=== PATIENT | male | born 1950 | race Hispanic/Latino ===

== ENCOUNTER 2018-01-22 09:30 | Inpatient (IN) | payer OTHER, MEDICARE ==
[2018-01-22 09:42] VITALS: BMI 31.9
[2018-01-22 10:37] LABS: BASO # 0.1 K/uL (0.0-0.2); BASO % 0.4 % (0.0-2.0); EOS # 0.1 K/uL (0.0-0.7); EOS % 0.4 % (0.0-4.0); HEMOGLOBIN 10.9 g/dL (12.0-18.0); LYMPH # 1.2 K/uL (1.0-4.3); LYMPH % 6.9 % (20.0-40.0); MEAN CELL VOLUME 94.6 fl (80.0-94.0); MEAN CORPUSCULAR HEMOGLOBIN 32.6 pg (27.0-31.0); MEAN CORPUSCULAR HGB CONC 34.5 g/dL (33.0-37.0); MEAN PLATELET VOLUME 7.1 fl (7.2-11.7); MONO # 1.4 K/uL (0.0-0.8); MONO % 7.9 % (0.0-10.0); NEUT % 84.4 % (50.0-75.0); NRBC % 0.1 % (0.0-0.0); PLATELET COUNT 423 K/uL (130-400); RBC 3.35 Mil/uL (4.40-5.90); RED CELL DISTRIBUTION WIDTH 14.4 % (11.5-14.5); WHITE BLOOD COUNT 17.8 K/uL (4.8-10.8)
[2018-01-22 10:44] LABS: INR 1.5 (0.9-1.2); PROTHROMBIN TIME 16.3 Seconds (9.8-13.1)
[2018-01-22 10:50] LABS: ALB/GLOB RATIO 0.6 (1.0-2.1); ALBUMIN 3.2 g/dL (3.5-5.0); ALT/SGPT 36 U/L (21-72); AST/SGOT 63 U/L (17-59); BLOOD UREA NITROGEN 28 mg/dl (9-20); CALCIUM 8.6 mg/dL (8.4-10.2); GFR AFRICAN-AMERICAN > 60; GFR NON-AFRICAN AMERICAN > 60; LIPASE 107 U/L (23-300)
[2018-01-22 10:58] LABS: B-TYPE NATRIURETIC PEPTIDE 200 pg/ml (0-900)
--- NOTE | 2018-01-22 10:58 | RAD ---
HISTORY: SOB, weight loss, past smoker COMPARISON: No prior. TECHNIQUE: Chest PA and lateral FINDINGS: LUNGS: 1.1 cm nodular density in the peripheral left lower lung. No active pulmonary disease. PLEURA: No significant pleural effusion identified. No pneumothorax apparent. CARDIOVASCULAR: Atherosclerotic aortic calcifications. Nonspecific hilar prominence. OSSEOUS STRUCTURES: Old bilateral rib fractures. Degenerative changes. VISUALIZED UPPER ABDOMEN: Normal. OTHER FINDINGS: None. IMPRESSION: No active disease. 1.1 cm nodular density in the peripheral left lower lung. CT scan can be obtained for further evaluation as clinically warranted. Nonspecific hilar prominence.
[2018-01-22] MEDS ORDERED: Iohexol 300 100 ML IJ ONE (11:27)
[2018-01-22 11:28] LABS: URINE BACTERIA RARE (<OCC); URINE BILIRUBIN NEGATIVE (NEGATIVE); URINE BLOOD NEGATIVE (NEGATIVE); URINE CLARITY SLIGHTY-CLOUDY (Clear); URINE COLOR YELLOW (YELLOW); URINE GLUCOSE (UA) NEG (Normal); URINE LEUKOCYTE ESTERASE NEG Leu/uL (Negative); URINE PROTEIN NEGATIVE (NEGATIVE)
[2018-01-22 12:07] LABS: EOSINOPHIL 1 % (0-7); LYMPHOCYTE 8 % (20-50); MONOCYTE 6 % (0-10); NEUTROPHIL 85 % (42-75); TOTAL CELLS COUNTED 100
[2018-01-22 12:08] LABS: ANISOCYTOSIS SLIGHT; HYPOCHROMIC SLIGHT; LARGE PLATELETS PRESENT; PLATELET ESTIMATE SLIGHTLY INCREASED (NORMAL); TOXIC GRANULATION PRESENT
--- NOTE | 2018-01-22 12:48 | CT ---
PROCEDURE: CT Chest, Abdomen and Pelvis with intravenous contrast HISTORY: abnormal CXR, elev LFTs COMPARISON: None. TECHNIQUE: IV dose administered: 95 cc Omnipaque 3 Radiation dose: Total exam DLP = 1038.02 mGy-cm. This CT exam was performed using one or more of the following dose reduction techniques: Automated exposure control, adjustment of the mA and/or kV according to patient size, and/or use of iterative reconstruction technique. FINDINGS: CT CHEST WITH CONTRAST: LUNGS: Left apical mass or scarring. Circumferential narrowing of the distal left mainstem bronchus in the bronchus to the left upper lobe. Postobstructive pneumonitis primarily affecting the left upper lobe including lingula. MEDIASTINUM: Unremarkable. Normal caliber aorta and pulmonary arterial trunk. No aortic dissection. Normal size heart. LYMPH NODES: Necrotic mass left lung inseparable from adjacent mediastinal and hilar adenopathy. The mass circumferentially narrows the left main pulmonary artery. Necrotic masses in the anterior and superior mediastinal identified. There is also a hilar CHRISTI, peritracheal and subcarinal adenopathy. The subcarinal mass measures 3.3 x 4.5 cm. Enlarged and necrotic lymph nodes are seen in the left axilla the largest measures 2 cm. PLEURA: Unremarkable. No pneumothorax. No pleural fluid. BONES: Lytic disease affecting the sternum. Additional lytic disease affecting the posterior lateral right 4th rib. Mixed sclerotic and lytic disease thoracic spine. OTHER FINDINGS: None. CT ABDOMEN AND PELVIS: LIVER: Hepatomegaly. Orthogonal measurements 9.0 x 17.2 by a 23 cm. No focal hepatic masses identified. Patent portal venous system. GALLBLADDER AND BILE DUCTS: Unremarkable. PANCREAS: Unremarkable. No gross lesion or ductal dilatation. SPLEEN: Splenomegaly. Orthogonal measurements 6.1 x 14.2 x 13.3 cm. Multiple masses within the spleen suspicious for tumor invasion. ADRENALS: Unremarkable. No mass. KIDNEYS AND URETERS: Right kidney: Unremarkable. Left kidney: Cystic mass exophytic projecting off the midpole region of the left kidney measures 2 x 5.2 cm. It is difficult to determine whether this is a complex cyst adjacent to a solid mass or at overall confluent cystic and solid tumor. VASCULATURE: Unremarkable. No aortic aneurysm. BOWEL: Unremarkable. No obstruction. No gross mural thickening. APPENDIX: Normal appendix. PERITONEUM: Unremarkable. No free fluid. No free air. LYMPH NODES: Fernanda hepatis, right upper quadrant adenopathy is suspected in the vicinity of the celiac axis, main portal vein and duodenum. BLADDER: Unremarkable. REPRODUCTIVE: Unremarkable. BONES: Lytic disease left pubic bone, posterior rim of the right acetabulum. Additional lytic lesions identified in the super acetabular region left iliac bone. OTHER FINDINGS: Necrotic soft tissue mass adjacent to the gluteal muscles on the left measuring 4 cm IMPRESSION: 1. Tumor burden in the chest abdomen pelvis described in greater detail above. 2. This includes massive adenopathy in the thorax. Tumor likely originating from the left upper lobe encasing the pulmonary artery and bronchus with postobstructive pneumonitis. 3. Soft tissue masses anterior abdominal wall and adjacent to the left gluteal muscles. 4. Splenomegaly and cystic presumed metastatic lesions in the spleen. 5. Primarily lytic disease in ribs and pelvis. 6. Complex solid and cystic mass in the left kidney. Renal cell carcinoma may be concomitant findings COMMUNICATION OF RESULTS Findings discussed with attending physician in the emergency department at the time of this interpretation. Study completed 12:00. Verbal results provided 12:41. Results available in the electronic medical record 12:46.
[2018-01-22] MEDS ORDERED: Piperacillin/Tazobact 4.5 GM in Sodium Chloride 0.9% 100 ML IVPB STA (12:59)
--- NOTE | 2018-01-22 13:38 | ED PDOC ---
HPI: SOB/CHF/COPD Time Seen by Provider: 01/22/18 09:45 Chief Complaint (Nursing): Shortness Of Breath Chief Complaint (Provider): shortness of breath History Per: Patient, Family History/Exam Limitations: no limitations Onset/Duration Of Symptoms: Gradual (x weeks) Current Symptoms Are (Timing): Still Present Initiating Event: Upper Respiratory Illness Quality: Aching, Tightness Severity: Moderate Associated Symptoms: Dizziness, Other (weight loss) Recently: Treated By A Physician Additional Complaint(s): 67yo male c/o progressive shortness of breath associated with left chest aching pain, weight loss, skin color change and generalized weakness ongoing for 2-3 weeks. States finished 2 rounds oral antibiotics without relief. Had PFTs done at PMD office, and recent ultrasound of prostate for elevated PSA. Denies hemoptyis, syncope, headache or focal weakness. Past Medical History Reviewed: Historical Data, Nursing Documentation, Vital Signs Vital Signs: Last Vital Signs Temp 97.9 F 01/26/18 11:48 Pulse 78 01/26/18 11:48 Resp 18 01/26/18 11:48 BP 163/91 H 01/26/18 11:48 Pulse Ox 97 01/26/18 11:48 - Medical History PMH: Pneumonia - Surgical History Surgical History: No Surg Hx - Family History Family History: States: Unknown Family Hx - Living Arrangements Living Arrangements: With Family - Social History Current smoker - smoking cessation education provided: Yes Ex-Smoker (has not smoked in the last 12 months): No (quit 10wks ago) - Immunization History Hx Tetanus Toxoid Vaccination: (UTD as of last year) - Home Medications Home Medications: Ambulatory Orders Medication Instructions Recorded Naproxen [Naprosyn] 500 mg PO BID 01/24/18 Tamsulosin [Flomax] 0.4 mg PO DAILY 01/24/18 tiZANidine [Zanaflex] 4 mg PO BID 01/24/18 Amoxicillin/Clavulanate [Augmentin 1 tab PO BID #14 tab 01/26/18 875 MG-125 MG] Dexamethasone [Decadron] 4 mg PO BID #60 tab 01/26/18 levETIRAcetam [Keppra] 500 mg PO BID #60 tab 01/26/18 - Allergies Allergies/Adverse Reactions: Allergies Allergy/AdvReac Type Severity Reaction Status Date / Time No Known Allergies Allergy Verified 07/26/14 19:39 Review of Systems Constitutional: Positive for: Weakness, Malaise, Weight loss Eyes: Negative for: Vision Change ENT: Negative for: Throat Pain Cardiovascular: Positive for: Light Headedness. Negative for: Palpitations, Edema Respiratory: Positive for: Cough, Shortness of Breath, SOB with Exertion, Pleuritic Pain. Negative for: Hemoptysis, Sputum Gastrointestinal: Negative for: Abdominal Pain Genitourinary Male: Negative for: Dysuria Musculoskeletal: Negative for: Neck Pain, Back Pain Skin: Negative for: Rash, Lesions, Jaundice Neurological: Positive for: Weakness (generalized). Negative for: Numbness, Seizures Physical Exam - Reviewed Nursing Documentation Reviewed: Yes Vital Signs Reviewed: Yes - Physical Exam Appears: Positive for: Non-toxic, No Acute Distress Head Exam: Positive for: ATRAUMATIC, NORMAL INSPECTION, NORMOCEPHALIC Skin: Positive for: Normal Color, Warm, DRY Eye Exam: Positive for: EOMI, Normal appearance, PERRL ENT: Positive for: Normal ENT Inspection Neck: Positive for: Normal, Painless ROM Cardiovascular/Chest: Positive for: Regular Rate, Rhythm Respiratory: Positive for: Normal Breath Sounds. Negative for: Rhonchi, Respiratory Distress Gastrointestinal/Abdominal: Positive for: Normal Exam, Soft. Negative for: Tenderness Back: Positive for: Normal Inspection Extremity: Positive for: Normal ROM Neurologic/Psych: Positive for: Alert, Oriented. Negative for: Motor/Sensory Deficits - Laboratory Results Result Diagrams: 01/25/18 09:30 01/25/18 09:30 - ECG ECG: Positive for: Interpreted By Al ECG Rhythm: Positive for: Sinus Rhythm Rate: 64 O2 Sat by Pulse Oximetry: 99 Pulse Ox Interpretation: Normal - Radiology X-Ray: Read By Radiologist X-Ray Interpretation: Other (hilar prominence and LLL lesion, rec CT chest) Medical Decision Making Medical Decision Making: workup for progressive SOB, weight loss, malaise. labs/cxr ordered labs reveal anemia w leukocytosis elev INR and elev Alk Phos CXR abnormal, given clinical picture concern for malignancy CT C/A/P ordered and results d/w Dr Crane, concerning for massive cancer burden in chest w mets blood cultures drawn prior to vanco/zosyn initiated for post obstructive pneumonia given elev WBC and immunocompromised state of malignancy D/w Dr Dash onc- no urgent indication for transfer, patient can remain at [facility] for biopsy and likely chemo, no indication for urgent radiation. Patient and given results and CT and bloodwork discussed in detail. Disposition - Clinical Impression Clinical Impression: Lung cancer, Pneumonia - Patient ED Disposition Is Patient to be Admitted: Yes Counseled Patient/Family Regarding: Studies Performed, Diagnosis, Need For Followup - Disposition Disposition Time: 12:30 (') Condition: GUARDED - Pt Status Changed To: Hospital Disposition Of: Inpatient - Admit Certification Admit to Inpatient:: After my assessment, the patient will require hospitalization for at least two midnights. This is because of the severity of symptoms shown, intensity of services needed, and/or the medical risk in this patient being treated as an outpatient. - POA Present On Arrival: None
[2018-01-22 13:55] LABS: VENOUS BLOOD GAS BASE EXCESS 2.6 mmol/L (0.0-2.0); VENOUS BLOOD GAS PCO2 36 mmHg (40-60); VENOUS BLOOD GAS PO2 59 mm/Hg (30-55); VENOUS BLOOD PH 7.47 (7.32-7.43)
[2018-01-22] MEDS: Naproxen 500 MG TAB PO PRN (16:26)
[2018-01-22] MEDS ORDERED: Sodium Chloride 3% for Inhalation 4 ML VIAL.NEB IH PRN (17:07)
[2018-01-22] MEDS ORDERED: Sodium Chloride 0.9% 1,000 ML IV SCH (18:00)
[2018-01-22] MEDS: Oxycodone/Acetaminophen 5/325 mg Tab PO PRN (18:13)
--- NOTE | 2018-01-22 18:42 | CARD ---
APPROVED REPORT EKG Measurement Heart [id number] <Conclusion> Normal sinus rhythm Normal ECG
[2018-01-22] MEDS: Albuterol-Ipratrop 3 mg / 0.5 (3 ml) UD INH SCH (19:23)
[2018-01-22] MEDS ORDERED: Oxycodone/Acetaminophen 5/325 mg Tab PO ONE (21:21)
[2018-01-23] MEDS: Oxycodone/Acetaminophen 5/325 mg Tab PO PRN ×2 (02:47→18:19)
[2018-01-23] MEDS: Piperacillin/Tazobact 3.375 GM in Sodium Chloride 0.9% 100 ML IVPB SCH ×5 (02:49→21:49)
[2018-01-23] MEDS: Sodium Chloride 0.9% 1,000 ML IV SCH ×2 (02:52→11:30)
[2018-01-23 06:19] LABS: BASO # 0.2 K/uL (0.0-0.2); BASO % 1.2 % (0.0-2.0); EOS # 0.3 K/uL (0.0-0.7); EOS % 2.2 % (0.0-4.0); HEMOGLOBIN 10.9 g/dL (12.0-18.0); LYMPH # 1.1 K/uL (1.0-4.3); MEAN CELL VOLUME 99.5 fl (80.0-94.0); MEAN CORPUSCULAR HEMOGLOBIN 35.3 pg (27.0-31.0); MEAN CORPUSCULAR HGB CONC 35.5 g/dL (33.0-37.0); MEAN PLATELET VOLUME 7.1 fl (7.2-11.7); MONO # 1.4 K/uL (0.0-0.8); MONO % 9.9 % (0.0-10.0); NEUT # 11.2 K/uL (1.8-7.0); NEUT % 78.7 % (50.0-75.0); RBC 3.09 Mil/uL (4.40-5.90); RED CELL DISTRIBUTION WIDTH 14.1 % (11.5-14.5); WHITE BLOOD COUNT 14.2 K/uL (4.8-10.8)
[2018-01-23 06:35] LABS: ALB/GLOB RATIO 0.5 (1.0-2.1); ALBUMIN 2.9 g/dL (3.5-5.0); ALT/SGPT 34 U/L (21-72); AST/SGOT 50 U/L (17-59); BLOOD UREA NITROGEN 18 mg/dl (9-20); CALCIUM 8.3 mg/dL (8.4-10.2); GFR AFRICAN-AMERICAN > 60; GFR NON-AFRICAN AMERICAN > 60
[2018-01-23] MEDS: Albuterol-Ipratrop 3 mg / 0.5 (3 ml) UD INH SCH ×4 (07:13→19:43)
--- NOTE | 2018-01-23 08:23 | RAD ---
PROCEDURE: Radiographs of the left elbow. HISTORY: Pain COMPARISON: No prior. FINDINGS: BONES: Possible coronoid process fracture. JOINTS: Unremarkable. SOFT TISSUES: Normal. JOINT EFFUSION: Elevation of the anterior fat pad. OTHER FINDINGS: None IMPRESSION: Elevation of the anterior fat pad consistent with fracture, possibly of the coronoid process. Patient admitted.
[2018-01-23] MEDS ORDERED: Gadodiamide 287 MG/ML VIAL (15ML) IV ONE (08:46)
--- NOTE | 2018-01-23 09:54 | CP.PCM.HP ---
History of Present Illness - History of Present Illness History of Present Illness: pt admitted for sob after being tx outpt for bronchitis/pna. no f/c, n/v/d. 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 bw and imaging noted. imaging w/ mass in lung, left kidney, abd wall, spleen. lytic lesion to left elbow, rib, pelvic. case d/c w/ radiology, pulm, heme/onc, neuro pt is pending bx for confirmation of dx thursday. Present on Admission - Present on Admission Any Indicators Present on Admission: No Review of Systems - Respiratory Respiratory: As Per HPI, Cough, Dyspnea - Musculoskeletal Musculoskeletal: As Per HPI, Arthralgias Past Patient History - Past Social History Smoking Status: Heavy Smoker > 10 Cigarettes Daily - CARDIAC Hx Cardiac Disorders: No - PULMONARY Hx Respiratory Disorders: Yes - NEUROLOGICAL Hx Neurological Disorder: No - HEENT Hx HEENT Problems: No - RENAL Hx Chronic Kidney Disease: No - ENDOCRINE/METABOLIC Hx Endocrine Disorders: No - HEMATOLOGICAL/ONCOLOGICAL Hx Blood Disorders: No - INTEGUMENTARY Hx Dermatological Problems: No - MUSCULOSKELETAL/RHEUMATOLOGICAL Hx Musculoskeletal Disorders: No Hx Falls: No - GENITOURINARY/GYNECOLOGICAL Hx Genitourinary Disorders: No - PSYCHIATRIC Hx Psychophysiologic Disorder: No Hx Substance Use: No - SURGICAL HISTORY Hx Surgeries: Yes Other/Comment: Polyps removed from throat. - ANESTHESIA Hx Anesthesia: Yes Hx Anesthesia Reactions: No Hx Malignant Hyperthermia: No Meds Allergies/Adverse Reactions: Allergies Allergy/AdvReac Type Severity Reaction Status Date / Time No Known Allergies Allergy Verified 07/26/14 19:39 Physical Exam - Constitutional Appears: Well, Non-toxic, No Acute Distress - Head Exam Head Exam: ATRAUMATIC, NORMAL INSPECTION, NORMOCEPHALIC - Eye Exam Eye Exam: EOMI, Normal appearance, PERRL Pupil Exam: NORMAL ACCOMODATION, PERRL - ENT Exam ENT Exam: Mucous Membranes Moist, Normal Exam - Neck Exam Neck exam: Positive for: Normal Inspection - Respiratory Exam Respiratory Exam: Clear to Auscultation Bilateral, NORMAL BREATHING PATTERN - Cardiovascular Exam Cardiovascular Exam: REGULAR RHYTHM, RRR, +S1, +S2 - GI/Abdominal Exam GI & Abdominal Exam: Normal Bowel Sounds, Soft. absent: Tenderness - Extremities Exam Extremities exam: Positive for: normal inspection - Back Exam Back exam: NORMAL INSPECTION - Neurological Exam Neurological exam: Alert, CN II-XII Intact, Normal Gait, Oriented x3, Reflexes Normal - Psychiatric Exam Psychiatric exam: Normal Affect, Normal Mood - Skin Skin Exam: Dry, Intact, Normal Color, Warm Results - Vital Signs Recent Vital Signs: Last Vital Signs Temp 97.7 F 01/23/18 08:10 Pulse 85 01/23/18 08:10 Resp 18 01/23/18 08:10 BP 138/79 01/23/18 08:10 Pulse Ox 97 01/23/18 08:10 - Labs Result Diagrams: 01/23/18 06:00 01/23/18 06:00 Labs: Laboratory Results - last 24 hr 01/22/18 01/22/18 01/22/18 10:23 10:23 10:23 WBC 17.8 H RBC 3.35 L Hgb 10.9 L Hct 31.7 L MCV 94.6 H MCH 32.6 H MCHC 34.5 RDW 14.4 Plt Count 423 H MPV 7.1 L Neut % (Auto) 84.4 H Lymph % (Auto) 6.9 L [place] % (Auto) 7.9 Eos % (Auto) 0.4 Baso % (Auto) 0.4 Neut # (Auto) 15.0 H Lymph # (Auto) 1.2 [place] # (Auto) 1.4 H Eos # (Auto) 0.1 Baso # (Auto) 0.1 Neutrophils % (Manual) 85 H Lymphocytes % (Manual) 8 L Monocytes % (Manual) 6 Eosinophils % (Manual) 1 Toxic Granulation Present Platelet Estimate Slightly increased H Large Platelets Present Hypochromasia (manual) Slight Anisocytosis (manual) Slight PT 16.3 H INR 1.5 H APTT 31.0 pO2 VBG pH VBG pCO2 VBG HCO3 VBG Total CO2 VBG O2 Sat (Calc) VBG Base Excess VBG Potassium Glucose Lactate FiO2 Sodium 129 L Potassium 3.9 Chloride 93 L Carbon Dioxide 26 Anion Gap 14 BUN 28 H Creatinine 1.1 Est GFR ( Amer) > 60 Est GFR (Non-Af Amer) > 60 Random Glucose 140 H Calcium 8.6 Total Bilirubin 1.4 H AST 63 H ALT 36 Alkaline Phosphatase 216 H NT-Pro-B Natriuret Pep 200 Total Protein 8.8 H Albumin 3.2 L Globulin 5.6 H Albumin/Globulin Ratio 0.6 L Lipase 107 Venous Blood Potassium Urine Color Urine Clarity Urine pH Ur Specific Larue Urine Protein Urine Glucose (UA) Urine Ketones Urine Blood Urine Nitrate Urine Bilirubin Urine Urobilinogen Ur Leukocyte Esterase Urine RBC (Auto) Urine Microscopic WBC Urine Bacteria Blood Type Antibody Screen BBK History Checked 01/22/18 01/22/18 01/22/18 10:23 11:00 13:23 WBC RBC Hgb Hct MCV MCH MCHC RDW Plt Count MPV Neut % (Auto) Lymph % (Auto) [place] % (Auto) Eos % (Auto) Baso % (Auto) Neut # (Auto) Lymph # (Auto) [place] # (Auto) Eos # (Auto) Baso # (Auto) Neutrophils % (Manual) Lymphocytes % (Manual) Monocytes % (Manual) Eosinophils % (Manual) Toxic Granulation Platelet Estimate Large Platelets Hypochromasia (manual) Anisocytosis (manual) PT INR APTT pO2 59 H VBG pH 7.47 H VBG pCO2 36 L VBG HCO3 26.8 VBG Total CO2 27.3 VBG O2 Sat (Calc) 95.8 H VBG Base Excess 2.6 H VBG Potassium 4.1 Glucose 115 H Lactate 1.2 FiO2 21.0 Sodium 127.0 L Potassium Chloride 95.0 L Carbon Dioxide Anion Gap BUN Creatinine Est GFR ( Amer) Est GFR (Non-Af Amer) Random Glucose Calcium Total Bilirubin AST ALT Alkaline Phosphatase NT-Pro-B Natriuret Pep Total Protein Albumin Globulin Albumin/Globulin Ratio Lipase Venous Blood Potassium 4.1 Urine Color Yellow Urine Clarity Slighty-cloudy Urine pH 5.0 Ur Specific Larue 1.016 Urine Protein Negative Urine Glucose (UA) Neg Urine Ketones Negative Urine Blood Negative Urine Nitrate Negative Urine Bilirubin Negative Urine Urobilinogen 4.0 Ur Leukocyte Esterase Neg Urine RBC (Auto) 1 Urine Microscopic WBC 1 Urine Bacteria Rare Blood Type O POSITIVE Antibody Screen Negative BBK History Checked No verified bt 01/23/18 01/23/18 06:00 06:00 WBC 14.2 H RBC 3.09 L Hgb 10.9 L Hct 30.8 L MCV 99.5 H D MCH 35.3 H MCHC 35.5 RDW 14.1 Plt Count 414 H MPV 7.1 L Neut % (Auto) 78.7 H Lymph % (Auto) 8.0 L [place] % (Auto) 9.9 Eos % (Auto) 2.2 Baso % (Auto) 1.2 Neut # (Auto) 11.2 H Lymph # (Auto) 1.1 [place] # (Auto) 1.4 H Eos # (Auto) 0.3 Baso # (Auto) 0.2 Neutrophils % (Manual) Lymphocytes % (Manual) Monocytes % (Manual) Eosinophils % (Manual) Toxic Granulation Platelet Estimate Large Platelets Hypochromasia (manual) Anisocytosis (manual) PT INR APTT pO2 VBG pH VBG pCO2 VBG HCO3 VBG Total CO2 VBG O2 Sat (Calc) VBG Base Excess VBG Potassium Glucose Lactate FiO2 Sodium 136 Potassium 3.4 L Chloride 98 Carbon Dioxide 26 Anion Gap 15 BUN 18 Creatinine 0.7 L Est GFR ( Amer) > 60 Est GFR (Non-Af Amer) > 60 Random Glucose 136 H Calcium 8.3 L Total Bilirubin 1.4 H AST 50 ALT 34 Alkaline Phosphatase 201 H NT-Pro-B Natriuret Pep Total Protein 8.2 Albumin 2.9 L Globulin 5.3 H Albumin/Globulin Ratio 0.5 L Lipase Venous Blood Potassium Urine Color Urine Clarity Urine pH Ur Specific Larue Urine Protein Urine Glucose (UA) Urine Ketones Urine Blood Urine Nitrate Urine Bilirubin Urine Urobilinogen Ur Leukocyte Esterase Urine RBC (Auto) Urine Microscopic WBC Urine Bacteria Blood Type Antibody Screen BBK History Checked Assessment & Plan (1) Lung mass Assessment and Plan: liley cancer w/ bone, brain, spleen, kidney involvement bx thursday neuro, pulm, heme/onc, orhto consults pain control cyndi mccullough for "?? brain mets Status: Acute (2) DVT prophylaxis Assessment and Plan: scd and ae hose hold anticoag for bx ambulation Status: Acute (3) Pneumonia Assessment and Plan: vanco/zosyn post obstructive/cap, bacterial pulm Status: Acute Decision To Admit - Pt Status Changed To: Hospital Disposition Of: Inpatient - Admit Certification Admit to Inpatient:: After my assessment, the patient will require hospitalization for at least two midnights. This is because of the severity of symptoms shown, intensity of services needed, and/or the medical risk in this patient being treated as an outpatient. - . Bed Request Type: Telemetry Admitting Physician: Karen Castro
--- NOTE | 2018-01-23 10:17 | CP.PCM.PN ---
Subjective - Date & Time of Evaluation Date of Evaluation: 01/23/18 Time of Evaluation: 10:17 - Subjective Subjective: FEELS BETTER TODAY SOB IMPROVING WITH RX STILL COUGHING AFEBRILE Objective - Vital Signs/Intake and Output Vital Signs (last 24 hours): Temp Pulse Resp BP Pulse Ox 97.7 F 85 18 138/79 97 01/23/18 08:10 01/23/18 08:10 01/23/18 08:10 01/23/18 08:10 01/23/18 08:10 - Medications Medications: Current Medications Albuterol/Ipratropium (Duoneb 3 Mg/0.5 Mg (3 Ml) Ud) 3 ml INH RQID TESFAYE Last Admin: 01/23/18 07:13 Dose: 3 ml Vancomycin HCl 1 gm/ Sodium (Chloride) 250 mls @ 166.667 mls/hr IVPB Q12 TESFAYE PRN Reason: Protocol Last Admin: 01/22/18 21:26 Dose: 166.667 mls/hr Piperacillin Sod/Tazobactam (Sod 3.375 gm/ Sodium Chloride) 100 mls @ 100 mls/ hr IVPB Q6 TESFAYE PRN Reason: Protocol Last Admin: 01/23/18 02:49 Dose: 100 mls/hr Sodium Chloride (Sodium Chloride 0.9%) 1,000 mls @ 125 mls/hr IV .Q8H TESFAYE Stop: 01/23/18 19:10 Last Admin: 01/23/18 02:52 Dose: 125 mls/hr Naproxen (Naproxen) 500 mg PO Q12 PRN PRN Reason: Pain, moderate (4-7) Last Admin: 01/22/18 16:26 Dose: 500 mg Oxycodone/Acetaminophen (Percocet 5/325 Mg Tab) 1 tab PO Q4 PRN PRN Reason: Pain, severe (8-10) Stop: 01/25/18 18:06 Last Admin: 01/23/18 02:47 Dose: 1 tab - Labs Labs: 01/23/18 06:00 01/23/18 06:00 PT 16.3 Seconds (9.8-13.1) H 01/22/18 10:23 INR 1.5 (0.9-1.2) H 01/22/18 10:23 APTT 31.0 Seconds (25.6-37.1) 01/22/18 10:23 - Constitutional Appears: No Acute Distress, Chronically Ill - Head Exam Head Exam: ATRAUMATIC, NORMAL INSPECTION, NORMOCEPHALIC - Eye Exam Eye Exam: EOMI, Normal appearance, PERRL Pupil Exam: NORMAL ACCOMODATION, PERRL - ENT Exam ENT Exam: Mucous Membranes Moist, Normal Exam - Neck Exam Neck Exam: Full ROM, Normal Inspection. absent: Lymphadenopathy - Respiratory Exam Respiratory Exam: Decreased Breath Sounds, Rales, NORMAL BREATHING PATTERN - Cardiovascular Exam Cardiovascular Exam: REGULAR RHYTHM, +S1, +S2. absent: Murmur - GI/Abdominal Exam GI & Abdominal Exam: Soft, Normal Bowel Sounds. absent: Tenderness - Rectal Exam Rectal Exam: NORMAL INSPECTION - Extremities Exam Extremities Exam: Full ROM, Normal Capillary Refill, Normal Inspection. absent : Joint Swelling, Pedal Edema - Back Exam Back Exam: NORMAL INSPECTION - Neurological Exam Neurological Exam: Alert, Awake, CN II-XII Intact, Normal Gait, Oriented x3 - Psychiatric Exam Psychiatric exam: Normal Affect, Normal Mood - Skin Skin Exam: Dry, Intact, Normal Color, Warm Assessment and Plan - Assessment and Plan (Free Text) Assessment: SOB R/O MALIGNANCY WITH METS COPD Plan: ADD DECADRO TO RX
[2018-01-23] MEDS: Naproxen 500 MG TAB PO PRN (10:24)
[2018-01-23] MEDS ORDERED: Dexamethasone 4 MG in Sodium Chloride 0.9% 50 ML IVPB SCH (10:30)
--- NOTE | 2018-01-23 10:30 | MRI ---
PROCEDURE: MRI BRAIN WITH AND WITHOUT CONTRAST HISTORY: Malignancy staging COMPARISON: None. TECHNIQUE: Multiplanar, multisequence MR images of the brain were obtained with and without intravenous contrast enhancement. FINDINGS: 18 cc of Omniscan contrast material injected for this procedure. HEMORRHAGE: There is a tiny a hemorrhagic metastasis seen in the left cerebellum. No other acute hemorrhages are identified DWI: There are 2 small focal areas of restricted diffusion in the left cerebellar hemisphere the laterally oriented lesion consistent with a small hemorrhagic metastasis and the medially oriented lesion is felt to represent a nonhemorrhagic metastasis BRAIN PARENCHYMA: There are multiple (too numerous to count) small metastatic lesions scattered throughout the supra and infratentorial compartment one of which is located in the left cerebellum and appears to exhibit both restricted diffusion and a hemorrhagic degradation. Note that many of the very tiny early lesions which are visible on postcontrast imaging too small to be visualized on diffusion imaging. . Incidental note also made of enhancing venous angioma (developmental venous anomaly) in the left inferior cerebellum which is located below the at aforementioned hemorrhagic metastatic lesion. There also mild diffuse chronic periventricular white matter ischemic changes Mild moderate central volume loss with slight disproportionate enlargement of the ventricles compared sulci. ENHANCEMENT: As above. VENTRICLES: No obstructive hydrocephalus. CRANIUM: No definitive calvarial lesions are seen at this time however consider followup bone scan. ORBITS: Orbits and contents unremarkable. PARANASAL SINUSES/MASTOIDS: Visualized paranasal sinuses are relatively well-developed and currently well-aerated. There is partial opacification of several of right inferior mastoid air cells. VASCULAR SYSTEM: Visualized major vascular flow voids at skull base patent. OTHER FINDINGS: None . IMPRESSION: There are multiple There are multiple (too numerous to count) small metastatic lesions scattered throughout the supra and infratentorial compartments several of which are slightly larger and and exhibit a restricted diffusion seen on DWI imaging. One of the lesions in the left cerebellum also exhibits hemorrhagic degradation. Note also made of an incidental developmental venous anomaly - venous angioma left inferior cerebellar hemisphere subjacent to the at aforementioned hemorrhagic metastatic deposit. . Mild diffuse periventricular white matter ischemic changes Mild to moderate central volume loss. Note that these findings were discussed with Niall Mcfadden at 10:20 a.m. with written down and read back verification.
--- NOTE | 2018-01-23 14:50 | CP.PCM.CON ---
History of Present Illness - History of Present Illness History of Present Illness: 67 year old male with a history of former tobacco abuse admitted with shortness of breast, found to have radiographic evidence of metastatic malignancy. The patient reports to being treated with antibiotics for pneumonia by his outpatient PMD. He notes to improvement in his symptoms with antibiotics but felt very short of breath while walking the dog yesterday. He denies headaches. Imaging revealed extensive thoracic tumor burden with bone and kidney lesions. An MRI of the brain revealed diffuse brain lesions concerning for metastasis. 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 Allergies: NKA Review of systems: All remaining review of systems including HEENT, cardiovascular, respiratory, gastrointestinal, genitourinary, musculoskeletal, dermatologic, neurologic, and psychiatric are negative unless mentioned in the HPI. Past Patient History - Past Social History Smoking Status: Heavy Smoker > 10 Cigarettes Daily - CARDIAC Hx Cardiac Disorders: No - PULMONARY Hx Respiratory Disorders: Yes - NEUROLOGICAL Hx Neurological Disorder: No - HEENT Hx HEENT Problems: No - RENAL Hx Chronic Kidney Disease: No - ENDOCRINE/METABOLIC Hx Endocrine Disorders: No - HEMATOLOGICAL/ONCOLOGICAL Hx Blood Disorders: No - INTEGUMENTARY Hx Dermatological Problems: No - MUSCULOSKELETAL/RHEUMATOLOGICAL Hx Musculoskeletal Disorders: No Hx Falls: No - GENITOURINARY/GYNECOLOGICAL Hx Genitourinary Disorders: No - PSYCHIATRIC Hx Psychophysiologic Disorder: No Hx Substance Use: No - SURGICAL HISTORY Hx Surgeries: Yes Other/Comment: Polyps removed from throat. - ANESTHESIA Hx Anesthesia: Yes Hx Anesthesia Reactions: No Hx Malignant Hyperthermia: No Meds Allergies/Adverse Reactions: Allergies Allergy/AdvReac Type Severity Reaction Status Date / Time No Known Allergies Allergy Verified 07/26/14 19:39 - Medications Medications: Current Medications Albuterol/Ipratropium (Duoneb 3 Mg/0.5 Mg (3 Ml) Ud) 3 ml INH RQID [facility] Last Admin: 01/23/18 11:13 Dose: 3 ml Dexamethasone (Decadron Inj) 4 mg IV Q12 [facility] Vancomycin HCl 1 gm/ Sodium (Chloride) 250 mls @ 166.667 mls/hr IVPB Q12 [facility] PRN Reason: Protocol Last Admin: 01/23/18 10:00 Dose: 166.667 mls/hr Piperacillin Sod/Tazobactam (Sod 3.375 gm/ Sodium Chloride) 100 mls @ 100 mls/ hr IVPB Q6 [facility] PRN Reason: Protocol Last Admin: 01/23/18 10:00 Dose: 100 mls/hr Sodium Chloride (Sodium Chloride 0.9%) 1,000 mls @ 125 mls/hr IV .Q8H [facility] Stop: 01/23/18 19:10 Last Admin: 01/23/18 02:52 Dose: 125 mls/hr Levetiracetam (Keppra) 500 mg PO BID [facility] Last Admin: 01/23/18 12:09 Dose: 500 mg Naproxen (Naproxen) 500 mg PO Q12 PRN PRN Reason: Pain, moderate (4-7) Last Admin: 01/23/18 10:24 Dose: 500 mg Oxycodone/Acetaminophen (Percocet 5/325 Mg Tab) 1 tab PO Q4 PRN PRN Reason: Pain, severe (8-10) Stop: 01/25/18 18:06 Last Admin: 01/23/18 02:47 Dose: 1 tab Physical Exam - Head Exam Head Exam: ATRAUMATIC - Eye Exam Eye Exam: Normal appearance - ENT Exam ENT Exam: Mucous Membranes Dry - Respiratory Exam Respiratory Exam: NORMAL BREATHING PATTERN - Cardiovascular Exam Cardiovascular Exam: +S1, +S2 - GI/Abdominal Exam GI & Abdominal Exam: Normal Bowel Sounds - Extremities Exam Extremities exam: Positive for: normal inspection - Neurological Exam Neurological exam: Oriented x3 - Psychiatric Exam Psychiatric exam: Normal Affect, Normal Mood - Skin Skin Exam: Warm Results - Vital Signs Recent Vital Signs: Last Vital Signs Temp 98.1 F 01/23/18 12:24 Pulse 88 01/23/18 12:24 Resp 18 01/23/18 12:24 BP 150/88 01/23/18 12:24 Pulse Ox 100 01/23/18 12:24 - Labs Result Diagrams: 01/23/18 06:00 01/23/18 06:00 Labs: Laboratory Results - last 24 hr 01/23/18 01/23/18 06:00 06:00 WBC 14.2 H RBC 3.09 L Hgb 10.9 L Hct 30.8 L MCV 99.5 H D MCH 35.3 H MCHC 35.5 RDW 14.1 Plt Count 414 H MPV 7.1 L Neut % (Auto) 78.7 H Lymph % (Auto) 8.0 L [place] % (Auto) 9.9 Eos % (Auto) 2.2 Baso % (Auto) 1.2 Neut # (Auto) 11.2 H Lymph # (Auto) 1.1 [place] # (Auto) 1.4 H Eos # (Auto) 0.3 Baso # (Auto) 0.2 Sodium 136 Potassium 3.4 L Chloride 98 Carbon Dioxide 26 Anion Gap 15 BUN 18 Creatinine 0.7 L Est GFR ( Amer) > 60 Est GFR (Non-Af Amer) > 60 Random Glucose 136 H Calcium 8.3 L Total Bilirubin 1.4 H AST 50 ALT 34 Alkaline Phosphatase 201 H Total Protein 8.2 Albumin 2.9 L Globulin 5.3 H Albumin/Globulin Ratio 0.5 L Assessment & Plan (1) Brain lesion Assessment and Plan: likely metastatic disease on steroids and seizure prophylaxis will hold NSAIDs would benefit from whole brain radiotherapy if confirmed malignancy neurology f/u Status: Acute (2) Lung mass Assessment and Plan: suspect metastatic lung cancer will need biopsy of most accessible lesion further treatment recommendations based on pathology pulmonary f/u Status: Acute (3) Leukocytosis Assessment and Plan: on antibiotics Status: Acute (4) Coagulopathy Assessment and Plan: likely nutritional Thank you for this interesting consult. Status: Acute
--- NOTE | 2018-01-23 19:10 | CP.PCM.CON ---
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 Mr Stallworth developed bronchitis and was admitted to the hospital, and neuroimaging was done that showed multiple infra and supratentorial lesions too many to count. He also has multiple mets in liver, and other organs. ON my interview, however, Mr. Stallworth has no complaints of headache, weakness, tinligng or inconinence. He denies aphasia, dysarthria, or periods of loss of consciousness. PMH/PSH: pneumonia FH/SH: . retired [employer], 2 ppd for many years, occasional etoh. All: nkda. on exam: Normal neurological examination, Past Patient History - Past Social History Smoking Status: Heavy Smoker > 10 Cigarettes Daily - CARDIAC Hx Cardiac Disorders: No - PULMONARY Hx Respiratory Disorders: Yes - NEUROLOGICAL Hx Neurological Disorder: No - HEENT Hx HEENT Problems: No - RENAL Hx Chronic Kidney Disease: No - ENDOCRINE/METABOLIC Hx Endocrine Disorders: No - HEMATOLOGICAL/ONCOLOGICAL Hx Blood Disorders: No - INTEGUMENTARY Hx Dermatological Problems: No - MUSCULOSKELETAL/RHEUMATOLOGICAL Hx Musculoskeletal Disorders: No Hx Falls: No - GENITOURINARY/GYNECOLOGICAL Hx Genitourinary Disorders: No - PSYCHIATRIC Hx Psychophysiologic Disorder: No Hx Substance Use: No - SURGICAL HISTORY Hx Surgeries: Yes Other/Comment: Polyps removed from throat. - ANESTHESIA Hx Anesthesia: Yes Hx Anesthesia Reactions: No Hx Malignant Hyperthermia: No Meds Allergies/Adverse Reactions: Allergies Allergy/AdvReac Type Severity Reaction Status Date / Time No Known Allergies Allergy Verified 07/26/14 19:39 - Medications Medications: Current Medications Albuterol/Ipratropium (Duoneb 3 Mg/0.5 Mg (3 Ml) Ud) 3 ml INH RQID [facility] Last Admin: 01/23/18 15:15 Dose: 3 ml Dexamethasone (Decadron Inj) 4 mg IV Q12 [facility] Vancomycin HCl 1 gm/ Sodium (Chloride) 250 mls @ 166.667 mls/hr IVPB Q12 [facility] PRN Reason: Protocol Last Admin: 01/23/18 10:00 Dose: 166.667 mls/hr Piperacillin Sod/Tazobactam (Sod 3.375 gm/ Sodium Chloride) 100 mls @ 100 mls/ hr IVPB Q6 [facility] PRN Reason: Protocol Last Admin: 01/23/18 17:00 Dose: 100 mls/hr Sodium Chloride (Sodium Chloride 0.9%) 1,000 mls @ 125 mls/hr IV .Q8H [facility] Stop: 01/23/18 19:10 Last Admin: 01/23/18 11:30 Dose: 125 mls/hr Levetiracetam (Keppra) 500 mg PO BID [facility] Last Admin: 01/23/18 17:30 Dose: 500 mg Oxycodone/Acetaminophen (Percocet 5/325 Mg Tab) 1 tab PO Q4 PRN PRN Reason: Pain, severe (8-10) Stop: 01/25/18 18:06 Last Admin: 01/23/18 18:19 Dose: 1 tab Results - Vital Signs Recent Vital Signs: Last Vital Signs Temp 98.0 F 01/23/18 15:36 Pulse 84 01/23/18 15:36 Resp 20 01/23/18 15:36 BP 141/81 01/23/18 15:36 Pulse Ox 100 01/23/18 15:36 - Labs Result Diagrams: 01/25/18 09:30 01/25/18 09:30 Labs: Laboratory Results - last 24 hr 01/23/18 01/23/18 06:00 06:00 WBC 14.2 H RBC 3.09 L Hgb 10.9 L Hct 30.8 L MCV 99.5 H D MCH 35.3 H MCHC 35.5 RDW 14.1 Plt Count 414 H MPV 7.1 L Neut % (Auto) 78.7 H Lymph % (Auto) 8.0 L [place] % (Auto) 9.9 Eos % (Auto) 2.2 Baso % (Auto) 1.2 Neut # (Auto) 11.2 H Lymph # (Auto) 1.1 [place] # (Auto) 1.4 H Eos # (Auto) 0.3 Baso # (Auto) 0.2 Sodium 136 Potassium 3.4 L Chloride 98 Carbon Dioxide 26 Anion Gap 15 BUN 18 Creatinine 0.7 L Est GFR ( Amer) > 60 Est GFR (Non-Af Amer) > 60 Random Glucose 136 H Calcium 8.3 L Total Bilirubin 1.4 H AST 50 ALT 34 Alkaline Phosphatase 201 H Total Protein 8.2 Albumin 2.9 L Globulin 5.3 H Albumin/Globulin Ratio 0.5 L Assessment & Plan - Assessment and Plan (Free Text) Assessment: 67 yr old male with lung ca, multiple organ mets, and now intracerebral mets , with no signs of epilepsy, headache, or neurological symptoms. plan: 1. Patient will need neurooncology consult at [facility] for possible intervention, ie whole brain radiation, stereotactic surgery 2. Agree with decadron 4mg 3. Appreciate dr alonzo consult and medical team management. Dr. Adi MD, DPN
[2018-01-23] MEDS: Dexamethasone 4 mg/1 ml IV SCH (20:52)
[2018-01-24] MEDS: Piperacillin/Tazobact 3.375 GM in Sodium Chloride 0.9% 100 ML IVPB SCH ×4 (03:32→21:42)
[2018-01-24 06:44] LABS: BASO % 0.3 % (0.0-2.0); EOS % 0.1 % (0.0-4.0); HEMOGLOBIN 10.8 g/dL (12.0-18.0); LYMPH % 6.2 % (20.0-40.0); MEAN CELL VOLUME 101.4 fl (80.0-94.0); MEAN CORPUSCULAR HEMOGLOBIN 38.7 pg (27.0-31.0); MEAN CORPUSCULAR HGB CONC 38.1 g/dL (33.0-37.0); MEAN PLATELET VOLUME 7.1 fl (7.2-11.7); MONO % 6.8 % (0.0-10.0); NEUT # 13.3 K/uL (1.8-7.0); NEUT % 86.6 % (50.0-75.0); NRBC % 0.1 % (0.0-0.0); RBC 2.8 Mil/uL (4.40-5.90); RED CELL DISTRIBUTION WIDTH 14.2 % (11.5-14.5); WHITE BLOOD COUNT 15.3 K/uL (4.8-10.8)
[2018-01-24 06:45] LABS: ALB/GLOB RATIO 0.5 (1.0-2.1); ALBUMIN 2.9 g/dL (3.5-5.0); ALT/SGPT 37 U/L (21-72); AST/SGOT 41 U/L (17-59); BLOOD UREA NITROGEN 10 mg/dl (9-20); CALCIUM 8.4 mg/dL (8.4-10.2); GFR AFRICAN-AMERICAN > 60; GFR NON-AFRICAN AMERICAN > 60
[2018-01-24] MEDS: Albuterol-Ipratrop 3 mg / 0.5 (3 ml) UD INH SCH ×4 (07:50→19:10)
[2018-01-24] MEDS: Dexamethasone 4 mg/1 ml IV SCH ×2 (09:08→21:50)
--- NOTE | 2018-01-24 09:42 | CP.PCM.PN ---
Subjective - Date & Time of Evaluation Date of Evaluation: 01/24/18 Time of Evaluation: 09:39 - Subjective Subjective: Mr. Stallworth was seen and examined at the bedside. he is alert, oriented in all spheres. He denies any headache, dizziness, lightheadedness. He states of feeling much better after his bowel movement this am. He claims of ambulating in a steady gait. He is able to participate in a pleasant conversation with staff and family members. He is aware of going to [facility] for further evaluation and treatment after his possible biopsy ritchie. There was no untoward events overnight. Objective - Vital Signs/Intake and Output Vital Signs (last 24 hours): Temp Pulse Resp BP Pulse Ox 97.8 F 84 18 148/83 96 01/24/18 08:03 01/24/18 08:03 01/24/18 08:03 01/24/18 08:03 01/24/18 08:03 - Medications Medications: Current Medications Albuterol/Ipratropium (Duoneb 3 Mg/0.5 Mg (3 Ml) Ud) 3 ml INH RQID [facility] Last Admin: 01/24/18 07:50 Dose: 3 ml Dexamethasone (Decadron Inj) 4 mg IV Q12 [facility] Last Admin: 01/24/18 09:08 Dose: 4 mg Vancomycin HCl 1 gm/ Sodium (Chloride) 250 mls @ 166.667 mls/hr IVPB Q12 [facility] PRN Reason: Protocol Last Admin: 01/24/18 09:08 Dose: 166.667 mls/hr Piperacillin Sod/Tazobactam (Sod 3.375 gm/ Sodium Chloride) 100 mls @ 100 mls/ hr IVPB Q6 [facility] PRN Reason: Protocol Last Admin: 01/24/18 09:09 Dose: 100 mls/hr Levetiracetam (Keppra) 500 mg PO BID [facility] Last Admin: 01/24/18 09:08 Dose: 500 mg Oxycodone/Acetaminophen (Percocet 5/325 Mg Tab) 1 tab PO Q4 PRN PRN Reason: Pain, severe (8-10) Stop: 01/25/18 18:06 Last Admin: 01/23/18 18:19 Dose: 1 tab - Labs Labs: 01/24/18 05:00 01/24/18 05:00 PT 16.3 Seconds (9.8-13.1) H 01/22/18 10:23 INR 1.5 (0.9-1.2) H 01/22/18 10:23 APTT 31.0 Seconds (25.6-37.1) 01/22/18 10:23 - Constitutional Appears: No Acute Distress - Head Exam Head Exam: NORMAL INSPECTION - Neurological Exam Neurological Exam: Alert, Awake, Oriented x3 Neuro motor strength exam: Left Upper Extremity: 5, Right Upper Extremity: 5, Left Lower Extremity: 5, Right Lower Extremity: 5 Additional comments: Alert, oriented x3, follows all commands. Sensation remains intact. Assessment and Plan (1) Brain lesion Assessment & Plan: Case discussed with Dr. Joshi, continue all current medical regimen including AED. Recommend to repeat CT scan of the head without contrast if patient's mental status decline and for severe headache. Status: Acute
--- NOTE | 2018-01-24 10:21 | CP.PCM.PN ---
Subjective - Date & Time of Evaluation Date of Evaluation: 01/24/18 Time of Evaluation: 10:20 - Subjective Subjective: pt doing well, w/o complaints. nof/c, n/v/d. bw noted. bc noted ?? contamination. all consults appriciated. pending bx Objective - Vital Signs/Intake and Output Vital Signs (last 24 hours): Temp Pulse Resp BP Pulse Ox 97.8 F 84 18 148/83 96 01/24/18 08:03 01/24/18 08:03 01/24/18 08:03 01/24/18 08:03 01/24/18 08:03 - Medications Medications: Current Medications Albuterol/Ipratropium (Duoneb 3 Mg/0.5 Mg (3 Ml) Ud) 3 ml INH RQID [facility] Last Admin: 01/24/18 07:50 Dose: 3 ml Dexamethasone (Decadron Inj) 4 mg IV Q12 [facility] Last Admin: 01/24/18 09:08 Dose: 4 mg Vancomycin HCl 1 gm/ Sodium (Chloride) 250 mls @ 166.667 mls/hr IVPB Q12 [facility] PRN Reason: Protocol Last Admin: 01/24/18 09:08 Dose: 166.667 mls/hr Piperacillin Sod/Tazobactam (Sod 3.375 gm/ Sodium Chloride) 100 mls @ 100 mls/ hr IVPB Q6 [facility] PRN Reason: Protocol Last Admin: 01/24/18 09:09 Dose: 100 mls/hr Levetiracetam (Keppra) 500 mg PO BID [facility] Last Admin: 01/24/18 09:08 Dose: 500 mg Oxycodone/Acetaminophen (Percocet 5/325 Mg Tab) 1 tab PO Q4 PRN PRN Reason: Pain, severe (8-10) Stop: 01/25/18 18:06 Last Admin: 01/23/18 18:19 Dose: 1 tab - Labs Labs: 01/24/18 05:00 01/24/18 05:00 PT 16.3 Seconds (9.8-13.1) H 01/22/18 10:23 INR 1.5 (0.9-1.2) H 01/22/18 10:23 APTT 31.0 Seconds (25.6-37.1) 01/22/18 10:23 - Constitutional Appears: Well, Non-toxic, No Acute Distress - Head Exam Head Exam: ATRAUMATIC, NORMAL INSPECTION, NORMOCEPHALIC - Eye Exam Eye Exam: EOMI, Normal appearance, PERRL Pupil Exam: NORMAL ACCOMODATION, PERRL - ENT Exam ENT Exam: Mucous Membranes Moist, Normal Exam - Neck Exam Neck Exam: Full ROM, Normal Inspection. absent: Lymphadenopathy - Respiratory Exam Respiratory Exam: Clear to Ausculation Bilateral, NORMAL BREATHING PATTERN - Cardiovascular Exam Cardiovascular Exam: REGULAR RHYTHM, RRR, +S1, +S2. absent: Murmur - GI/Abdominal Exam GI & Abdominal Exam: Soft, Normal Bowel Sounds. absent: Tenderness - Extremities Exam Extremities Exam: Full ROM, Normal Capillary Refill, Normal Inspection. absent : Joint Swelling, Pedal Edema - Back Exam Back Exam: NORMAL INSPECTION - Neurological Exam Neurological Exam: Alert, Awake, CN II-XII Intact, Normal Gait, Oriented x3 - Psychiatric Exam Psychiatric exam: Normal Affect, Normal Mood - Skin Skin Exam: Dry, Intact, Normal Color, Warm Assessment and Plan (1) Lung mass Status: Acute (2) DVT prophylaxis Status: Acute (3) Pneumonia Status: Acute - Assessment and Plan (Free Text) Assessment: (1) Lung mass Assessment and Plan: liley cancer w/ bone, brain, spleen, kidney involvement bx thursday neuro, pulm, heme/onc, orhto consults pain control decadron jamel for "?? brain mets Status: Acute (2) DVT prophylaxis Assessment and Plan: scd and ae hose hold anticoag for bx ambulation Status: Acute (3) Pneumonia Assessment and Plan: vanco/zosyn post obstructive/cap, bacterial pulm Status: Acute 4-pos bc ?? contamination, ID, on vanco/zosyn
--- NOTE | 2018-01-24 11:28 | CP.PCM.PN ---
Subjective - Date & Time of Evaluation Date of Evaluation: 01/24/18 Time of Evaluation: 11:28 - Subjective Subjective: FEELS BETTER COUGHING UP THICK TENACEOUS SPUTUM NO CHEST PAINS SOB IMPROVED Objective - Vital Signs/Intake and Output Vital Signs (last 24 hours): Temp Pulse Resp BP Pulse Ox 97.8 F 84 18 148/83 96 01/24/18 08:03 01/24/18 08:03 01/24/18 08:03 01/24/18 08:03 01/24/18 08:03 - Medications Medications: Current Medications Albuterol/Ipratropium (Duoneb 3 Mg/0.5 Mg (3 Ml) Ud) 3 ml INH RQID [facility] Last Admin: 01/24/18 11:16 Dose: 3 ml Dexamethasone (Decadron Inj) 4 mg IV Q12 [facility] Last Admin: 01/24/18 09:08 Dose: 4 mg Vancomycin HCl 1 gm/ Sodium (Chloride) 250 mls @ 166.667 mls/hr IVPB Q12 [facility] PRN Reason: Protocol Last Admin: 01/24/18 09:08 Dose: 166.667 mls/hr Piperacillin Sod/Tazobactam (Sod 3.375 gm/ Sodium Chloride) 100 mls @ 100 mls/ hr IVPB Q6 [facility] PRN Reason: Protocol Last Admin: 01/24/18 09:09 Dose: 100 mls/hr Levetiracetam (Keppra) 500 mg PO BID [facility] Last Admin: 01/24/18 09:08 Dose: 500 mg Oxycodone/Acetaminophen (Percocet 5/325 Mg Tab) 1 tab PO Q4 PRN PRN Reason: Pain, severe (8-10) Stop: 01/25/18 18:06 Last Admin: 01/23/18 18:19 Dose: 1 tab - Labs Labs: 01/24/18 05:00 01/24/18 05:00 PT 16.3 Seconds (9.8-13.1) H 01/22/18 10:23 INR 1.5 (0.9-1.2) H 01/22/18 10:23 APTT 31.0 Seconds (25.6-37.1) 01/22/18 10:23 - Constitutional Appears: No Acute Distress - Head Exam Head Exam: ATRAUMATIC, NORMAL INSPECTION, NORMOCEPHALIC - Eye Exam Eye Exam: EOMI, Normal appearance, PERRL Pupil Exam: NORMAL ACCOMODATION, PERRL - ENT Exam ENT Exam: Mucous Membranes Moist, Normal Exam - Neck Exam Neck Exam: Full ROM, Normal Inspection. absent: Lymphadenopathy - Respiratory Exam Respiratory Exam: Prolonged Expiratory Phase, Rales, NORMAL BREATHING PATTERN - Cardiovascular Exam Cardiovascular Exam: REGULAR RHYTHM, +S1, +S2. absent: Murmur - GI/Abdominal Exam GI & Abdominal Exam: Soft, Normal Bowel Sounds. absent: Tenderness - Rectal Exam Rectal Exam: NORMAL INSPECTION - Extremities Exam Extremities Exam: Full ROM, Normal Capillary Refill, Normal Inspection. absent : Joint Swelling, Pedal Edema - Back Exam Back Exam: NORMAL INSPECTION - Neurological Exam Neurological Exam: Alert, Awake, CN II-XII Intact, Normal Gait, Oriented x3 - Psychiatric Exam Psychiatric exam: Normal Affect, Normal Mood - Skin Skin Exam: Dry, Intact, Normal Color, Warm Assessment and Plan - Assessment and Plan (Free Text) Assessment: PROBABLE METASTATIC DZ COPD EXAC PNEUMONIA Plan: CONTINUE CURRENT RX FOR IR EVAL RE--BIOPSY OF BEST ACCESSIBLE LESION
--- NOTE | 2018-01-24 12:54 | CP.PCM.CON ---
History of Present Illness - History of Present Illness History of Present Illness: 67 year old male with a history of former tobacco abuse admitted with shortness of breast, found to have radiographic evidence of metastatic malignancy. He was referred for ID eval for positive blood cultures The patient reports to being treated with antibiotics for pneumonia by his outpatient PMD. Imaging revealed extensive thoracic tumor burden with bone and kidney lesions. An MRI of the brain revealed diffuse brain lesions concerning for metastasis. 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 Allergies: NKA Review of Systems - Review of Systems All systems: reviewed and no additional remarkable complaints except - Constitutional Constitutional: As Per HPI, Chills. absent: Anorexia, Fever, Weight Loss, Weakness - EENT Eyes: absent: As Per HPI, Blind Spots, Blurred Vision, Change in Vision, Decreased Night Vision, Diplopia, Discharge, Dry Eye, Exophthalmos, Floaters, Irritation, Itchy Eyes, Loss of Peripheral Vision, Pain, Photophobia, Requires Corrective Lenses, Sees Flashes, Spots in Vision, Tunnel Vision, Other Visual Disturbances, Loss of Vision, Other Ears: absent: As Per HPI, Decreased Hearing, Ear Discharge, Ear Pain, Tinnitus, Abnormal Hearing, Disequilibrium, Dizziness, Other Nose/Mouth/Throat: absent: As Per HPI, Epistaxis, Nasal Congestion, Nasal Discharge, Nasal Obstruction, Nasal Trauma, Nose Pain, Post Nasal Drip, Sinus Pain, Sinus Pressure, Bleeding Gums, Change in Voice, Dental Pain, Dry Mouth, Dysphagia, Halitosis, Hoarsness, Lip Swelling, Mouth Lesions, Mouth Pain, Odynophagia, Sore Throat, Throat Swelling, Tongue Swelling, Facial Pain, Neck Pain, Neck Mass, Other - Cardiovascular Cardiovascular: absent: As Per HPI, Acrocyanosis, Chest Pain, Chest Pain at Rest , Chest Pain with Activity, Claudication, Diaphoresis, Dyspnea, Dyspnea on Exertion, Edema, Irregular Heart Rhythm, Pain Radiating to Arm/Neck/Jaw, Leg Edema, Leg Ulcers, Lightheadedness, Orthopnea, Palpitations, Paroxysmal Nocturnal Dyspnea, Pedal Edema, Radiating Pain, Rapid Heart Rate, Slow Heart Rate, Syncope, Other - Respiratory Respiratory: As Per HPI, Cough, Dyspnea, Dyspnea on Exertion. absent: Hemoptysis - Gastrointestinal Gastrointestinal: absent: As Per HPI, Abdominal Pain, Belching, Bloating, Change in Bowel Habits, Change in Stool Character, Coffee Ground Emesis, Constipation, Cramping, Diarrhea, Dyspepsia, Dysphagia, Early Satiety, Excessive Flatus, Fecal Incontinence, Heartburn, Hematemesis, Hematochezia, Loose Stools, Melena, Nausea, Odynophagia, Temesmus, Vomiting, Other - Genitourinary Genitourinary: absent: As Per HPI, Change in Urinary Stream, Difficulty Urinating, Dysuria, Flank Pain, Hematuria, Pyuria, Nocturia, Urinary Incontinence, Urinary Frequency, Urinary Hesitance, Urinary Urgency, Voiding Freq/Small Amts, Freq UTI, Hx Renal/Bladder Calculi, Hx /Renal Surgery, Bladder Distension, Other - Musculoskeletal Musculoskeletal: absent: As Per HPI, Abnormal Gait, Arthralgias, Atrophy, Back Pain, Deformity, Joint Swelling, Limited Range of Motion, Loss of Height, Muscle Cramps, Muscle Weakness, Myalgias, Neck Pain, Numbness, Radiating Pain into Limb, Stiffness, Tingling, Other - Integumentary Integumentary: absent: As Per HPI, Acne, Alopecia, Bleeding Lesions, Change in Hair, Change in Nails, Change in Pigmentation, Changing Lesions, Dry Skin, Erythema, Furuncle, Hirsutism, Lesions, New Lesions, Non-Healing Lesions, Photosensitivity, Pruritus, Rash, Skin Pain, Skin Ulcer, Sores, Striae, Swelling , Unusual Bruising, Wounds, Jaundice, Other - Neurological Neurological: absent: As Per HPI, Abnormal Gait, Abnormal Hearing, Abnormal Movements, Abnormal Speech, Behavioral Changes, Burning Sensations, Confusion, Convulsions, Disequilibrium, Dizziness, Numbness, Focal Weakness, Frequent Falls , Headaches, Lack of Coordination, Loss of Vision, Memory Loss, Paresthesias, Radicular Pain, Restless Legs, Sensory Deficit, Syncope, Tingling, Tremor, Vertigo, Weakness, Other Visual Disturbances, Other - Psychiatric Psychiatric: absent: As Per HPI, Abnormal Sleep Pattern, Anhedonia, Anxiety, Auditory Hallucinations, Behavioral Changes, Change in Appetite, Change in Libido, Confusion, Depression, Difficulty Concentrating, Hallucinations, Homicidal Ideation, Hopelessness, Irritability, Memory Loss, Mood Swings, Panic Attacks, Paranoia, Suicidal Ideation, Visual Hallucinations, Tactile Hallucinations, Other - Endocrine Endocrine: absent: As Per HPI, Change in Body Appearance, Change in Libido, Cold Intolorance, Deepening of Voice, Excessive Sweating, Fatigue, Flushing, Heat Intolorance, Increase in Ring/Shoe/Hat Size, Palpitations, Polydipsia, Polyphagia, Polyuria, Other - Hematologic/Lymphatic Hematologic: absent: As Per HPI, Easy Bleeding, Easy Bruising, Lymphadenopathy, Other Past Patient History - Past Social History Smoking Status: Heavy Smoker > 10 Cigarettes Daily - CARDIAC Hx Cardiac Disorders: No - PULMONARY Hx Respiratory Disorders: Yes - NEUROLOGICAL Hx Neurological Disorder: No - HEENT Hx HEENT Problems: No - RENAL Hx Chronic Kidney Disease: No - ENDOCRINE/METABOLIC Hx Endocrine Disorders: No - HEMATOLOGICAL/ONCOLOGICAL Hx Blood Disorders: No - INTEGUMENTARY Hx Dermatological Problems: No - MUSCULOSKELETAL/RHEUMATOLOGICAL Hx Musculoskeletal Disorders: No Hx Falls: No - GENITOURINARY/GYNECOLOGICAL Hx Genitourinary Disorders: No - PSYCHIATRIC Hx Psychophysiologic Disorder: No Hx Substance Use: No - SURGICAL HISTORY Hx Surgeries: Yes Other/Comment: Polyps removed from throat. - ANESTHESIA Hx Anesthesia: Yes Hx Anesthesia Reactions: No Hx Malignant Hyperthermia: No Meds Allergies/Adverse Reactions: Allergies Allergy/AdvReac Type Severity Reaction Status Date / Time No Known Allergies Allergy Verified 07/26/14 19:39 - Medications Medications: Current Medications Albuterol/Ipratropium (Duoneb 3 Mg/0.5 Mg (3 Ml) Ud) 3 ml INH RQID [facility] Last Admin: 01/24/18 11:16 Dose: 3 ml Dexamethasone (Decadron Inj) 4 mg IV Q12 [facility] Last Admin: 01/24/18 09:08 Dose: 4 mg Vancomycin HCl 1 gm/ Sodium (Chloride) 250 mls @ 166.667 mls/hr IVPB Q12 [facility] PRN Reason: Protocol Last Admin: 01/24/18 09:08 Dose: 166.667 mls/hr Piperacillin Sod/Tazobactam (Sod 3.375 gm/ Sodium Chloride) 100 mls @ 100 mls/ hr IVPB Q6 [facility] PRN Reason: Protocol Last Admin: 01/24/18 09:09 Dose: 100 mls/hr Levetiracetam (Keppra) 500 mg PO BID [facility] Last Admin: 01/24/18 09:08 Dose: 500 mg Oxycodone/Acetaminophen (Percocet 5/325 Mg Tab) 1 tab PO Q4 PRN PRN Reason: Pain, severe (8-10) Stop: 01/25/18 18:06 Last Admin: 01/23/18 18:19 Dose: 1 tab Physical Exam - Constitutional Appears: Non-toxic, Chronically Ill - Head Exam Head Exam: NORMOCEPHALIC - Eye Exam Eye Exam: PERRL. absent: Scleral icterus - ENT Exam ENT Exam: Mucous Membranes Dry - Neck Exam Neck exam: Negative for: Lymphadenopathy - Respiratory Exam Respiratory Exam: Decreased Breath Sounds - Cardiovascular Exam Cardiovascular Exam: REGULAR RHYTHM, +S1, +S2. absent: Systolic Murmur - GI/Abdominal Exam GI & Abdominal Exam: Diminished Bowel Sounds, Soft. absent: Tenderness - Rectal Exam Rectal Exam: Deferred - Exam Exam: NORMAL INSPECTION - Extremities Exam Extremities exam: Negative for: pedal edema - Back Exam Back exam: absent: CVA tenderness (L), CVA tenderness (R) - Neurological Exam Neurological exam: Alert, CN II-XII Intact, Oriented x3, Reflexes Normal - Psychiatric Exam Psychiatric exam: Normal Mood - Skin Skin Exam: Dry Results - Vital Signs Recent Vital Signs: Last Vital Signs Temp 98.4 F 01/24/18 12:31 Pulse 92 H 01/24/18 12:31 Resp 18 01/24/18 12:31 BP 151/85 H 01/24/18 12:31 Pulse Ox 98 01/24/18 12:31 - Labs Result Diagrams: 01/24/18 05:00 01/24/18 05:00 Labs: Laboratory Results - last 24 hr 01/24/18 01/24/18 05:00 05:00 WBC 15.3 H RBC 2.80 L Hgb 10.8 L Hct 28.4 L MCV 101.4 H MCH 38.7 H MCHC 38.1 H RDW 14.2 Plt Count 418 H MPV 7.1 L Neut % (Auto) 86.6 H Lymph % (Auto) 6.2 L [place] % (Auto) 6.8 Eos % (Auto) 0.1 Baso % (Auto) 0.3 Neut # (Auto) 13.3 H Lymph # (Auto) 1.0 [place] # (Auto) 1.0 H Eos # (Auto) 0.0 Baso # (Auto) 0.0 Sodium 136 Potassium 4.1 Chloride 99 Carbon Dioxide 27 Anion Gap 14 BUN 10 Creatinine 0.6 L Est GFR ( Amer) > 60 Est GFR (Non-Af Amer) > 60 Random Glucose 139 H Calcium 8.4 Total Bilirubin 1.3 AST 41 ALT 37 Alkaline Phosphatase 198 H Total Protein 8.2 Albumin 2.9 L Globulin 5.4 H Albumin/Globulin Ratio 0.5 L Assessment & Plan (1) Brain lesion Status: Acute (2) Leukocytosis Status: Acute (3) Lung mass Status: Acute (4) Pneumonia Status: Acute - Assessment and Plan (Free Text) Assessment: BLOOD ISOLATE MAY REPRESENT CONTAMINATION WOULD CONT IV RX FOR PNEUMONIA ( POST OBSTRUCTIVE) AWAIT PULM WORK UP PROGNOSIS POOR FROM OUTSET
--- NOTE | 2018-01-24 17:47 | CON ---
DATE: 01/22/2018 HISTORY OF PRESENT ILLNESS: Federica Castellon is a 67-year-old male, who was admitted via the Emergency Room under the service of Dr. Castro because of shortness of breath, exercise intolerance, and left-sided chest pain on the day of admission. He also indicated that he had some weight loss and generalized malaise over the past several weeks prior to presentation. He indicates that he had seen a physician in Dr. Castro's office because of shortness of breath and what he thought was pneumonia over the past several months, had been placed on antibiotics, felt better, but symptoms have worsen. In the Emergency Room, he was evaluated and had a CAT scan of the chest and a chest x-ray had what appear to be a lung mass which is compatible with malignancy. He was therefore referred for pulmonary evaluation. PAST MEDICAL HISTORY: He has an unremarkable past medical history. FAMILY HISTORY: Unrevealing. SOCIAL HISTORY: He smokes up to two packs of cigarettes daily. He indicates he quit about 10 weeks ago because of his illness. Does not drink and does not use drugs and lives alone. REVIEW OF SYSTEMS: Essentially remarkable for shortness of breath, exercise intolerance, and body aches and pain. PHYSICAL EXAMINATION: GENERAL: The patient is alert and oriented. He is well-built, well-nourished, appears to be comfortable at present. VITAL SIGNS: Blood pressure 127/84, pulse of 96, and respiratory rate 20. He is afebrile. O2 sat 96% on room air. SKIN: Shows fair turgor. HEENT: Pupils are equal and reactive to light and accommodation. Mouth shows fair hygiene. NECK: JVP is flat. LUNGS: Bilateral scattered rales with some wheezing and dullness at bases. HEART: S1 and S2. ABDOMEN: Soft and nontender. No organomegaly. EXTREMITIES: Shows no edema or cyanosis. CENTRAL NERVOUS SYSTEM: Exam grossly intact. LABORATORY DATA: WBC 17.8, hemoglobin 10.9, and platelet count 423,000. Sodium 129, potassium 3.9, BUN 28, creatinine 1.1, AST 63, and ALT 36. Venous blood gas pH 7.47, pO2 of 59, and pCO2 of 36. PT 16.3 and INR 1.5. Chest x-ray; 1.1 cm nodular density in the left lower lung. CT scan of the chest and abdomen is remarkable for tumor burden in chest, abdomen and pelvis, and massive adenopathy in the thorax. Tumor likely originative from the left upper lobe, pulmonary artery and bronchus with post-obstructive pneumonitis, soft tissue masses anterior abdominal wall, and adjacent to the left gluteal muscle, splenomegaly, cystic metastatic lesions in the spleen, in the ribs and a pelvic area, complex solid and cystic masses in the left kidney, and renal cell carcinoma may be concomitant finding. EKG report pending. IMPRESSION: Shortness of breath, exercise intolerance in a 67-year-old male, who is a chronic cigarettes smoker, one has to rule out some form of malignancy, could be a primary lung, but one also has to consider renal cell cancer without metastasis. The patient also appears to have chronic obstructive pulmonary disease and pneumonia. PLAN: Intravenous antibiotics as well as bronchodilator, and analgesics for pain, oxygen therapy. The patient will probably need a CT guided needle biopsy of lung mass or kidney mass for definitively diagnosis. We will continue to follow with you. Patrice Metcalf MD [facility]
[2018-01-25] MEDS: Piperacillin/Tazobact 3.375 GM in Sodium Chloride 0.9% 100 ML IVPB SCH ×4 (04:02→21:58)
[2018-01-25] MEDS: Albuterol-Ipratrop 3 mg / 0.5 (3 ml) UD INH SCH ×4 (07:40→19:03)
--- NOTE | 2018-01-25 08:03 | CP.PCM.PN ---
Subjective - Date & Time of Evaluation Date of Evaluation: 01/25/18 Time of Evaluation: 08:02 - Subjective Subjective: pt doing well. no f/c, n/v/d. no cough/congestion. for bx. all bw and consults noted Objective - Vital Signs/Intake and Output Vital Signs (last 24 hours): Temp Pulse Resp BP Pulse Ox 97.7 F 86 18 162/91 H 96 01/25/18 05:16 01/25/18 05:16 01/25/18 05:16 01/25/18 05:16 01/25/18 05:16 Intake and Output: 01/25/18 01/25/18 06:59 18:59 Intake Total 450 Balance 450 - Medications Medications: Current Medications Albuterol/Ipratropium (Duoneb 3 Mg/0.5 Mg (3 Ml) Ud) 3 ml INH RQID [facility] Last Admin: 01/25/18 07:40 Dose: 3 ml Dexamethasone (Decadron Inj) 4 mg IV Q12 [facility] Last Admin: 01/24/18 21:50 Dose: 4 mg Vancomycin HCl 1 gm/ Sodium (Chloride) 250 mls @ 166.667 mls/hr IVPB Q12 [facility] PRN Reason: Protocol Last Admin: 01/24/18 21:40 Dose: 166.667 mls/hr Piperacillin Sod/Tazobactam (Sod 3.375 gm/ Sodium Chloride) 100 mls @ 100 mls/ hr IVPB Q6 [facility] PRN Reason: Protocol Last Admin: 01/25/18 04:02 Dose: 100 mls/hr Levetiracetam (Keppra) 500 mg PO BID [facility] Last Admin: 01/24/18 16:11 Dose: 500 mg Oxycodone/Acetaminophen (Percocet 5/325 Mg Tab) 1 tab PO Q4 PRN PRN Reason: Pain, severe (8-10) Stop: 01/25/18 18:06 Last Admin: 01/23/18 18:19 Dose: 1 tab - Labs Labs: 01/24/18 05:00 01/24/18 05:00 PT 16.3 Seconds (9.8-13.1) H 01/22/18 10:23 INR 1.5 (0.9-1.2) H 01/22/18 10:23 APTT 31.0 Seconds (25.6-37.1) 01/22/18 10:23 - Constitutional Appears: Well, Non-toxic, No Acute Distress - Head Exam Head Exam: ATRAUMATIC, NORMAL INSPECTION, NORMOCEPHALIC - Eye Exam Eye Exam: EOMI, Normal appearance, PERRL Pupil Exam: NORMAL ACCOMODATION, PERRL - ENT Exam ENT Exam: Mucous Membranes Moist, Normal Exam - Neck Exam Neck Exam: Full ROM, Normal Inspection. absent: Lymphadenopathy - Respiratory Exam Respiratory Exam: Clear to Ausculation Bilateral, NORMAL BREATHING PATTERN - Cardiovascular Exam Cardiovascular Exam: REGULAR RHYTHM, RRR, +S1, +S2. absent: Murmur - GI/Abdominal Exam GI & Abdominal Exam: Soft, Normal Bowel Sounds. absent: Tenderness - Extremities Exam Extremities Exam: Full ROM, Normal Capillary Refill, Normal Inspection. absent : Joint Swelling, Pedal Edema - Back Exam Back Exam: NORMAL INSPECTION - Neurological Exam Neurological Exam: Alert, Awake, CN II-XII Intact, Normal Gait, Oriented x3 - Psychiatric Exam Psychiatric exam: Normal Affect, Normal Mood - Skin Skin Exam: Dry, Intact, Normal Color, Warm Assessment and Plan (1) Lung mass Status: Acute (2) DVT prophylaxis Status: Acute (3) Pneumonia Status: Acute - Assessment and Plan (Free Text) Assessment: (1) Lung mass Assessment and Plan: liley cancer w/ bone, brain, spleen, kidney involvement bx thursday neuro, pulm, heme/onc, orhto consults pain control decadron annra for "likely brain mets Status: Acute (2) DVT prophylaxis Assessment and Plan: scd and ae hose hold anticoag for bx ambulation Status: Acute (3) Pneumonia Assessment and Plan: vanco/zosyn post obstructive/cap, bacterial pulm Status: Acute 4-pos bc ?? contamination, ID, on vanco/zosyn
[2018-01-25] MEDS: Dexamethasone 4 mg/1 ml IV SCH ×2 (08:36→22:01)
--- NOTE | 2018-01-25 09:12 | CP.PCM.PN ---
Subjective - Date & Time of Evaluation Date of Evaluation: 01/25/18 Time of Evaluation: 09:12 - Subjective Subjective: FEELS BETTER SOB LESS Objective - Vital Signs/Intake and Output Vital Signs (last 24 hours): Temp Pulse Resp BP Pulse Ox 97.9 F 82 18 148/90 97 01/25/18 08:13 01/25/18 08:13 01/25/18 08:13 01/25/18 08:13 01/25/18 08:13 Intake and Output: 01/25/18 01/25/18 06:59 18:59 Intake Total 450 Balance 450 - Medications Medications: Current Medications Albuterol/Ipratropium (Duoneb 3 Mg/0.5 Mg (3 Ml) Ud) 3 ml INH RQID [facility] Last Admin: 01/25/18 07:40 Dose: 3 ml Dexamethasone (Decadron Inj) 4 mg IV Q12 [facility] Last Admin: 01/25/18 08:36 Dose: 4 mg Vancomycin HCl 1 gm/ Sodium (Chloride) 250 mls @ 166.667 mls/hr IVPB Q12 [facility] PRN Reason: Protocol Last Admin: 01/24/18 21:40 Dose: 166.667 mls/hr Piperacillin Sod/Tazobactam (Sod 3.375 gm/ Sodium Chloride) 100 mls @ 100 mls/ hr IVPB Q6 [facility] PRN Reason: Protocol Last Admin: 01/25/18 04:02 Dose: 100 mls/hr Levetiracetam (Keppra) 500 mg PO BID [facility] Last Admin: 01/25/18 08:36 Dose: 500 mg Oxycodone/Acetaminophen (Percocet 5/325 Mg Tab) 1 tab PO Q4 PRN PRN Reason: Pain, severe (8-10) Stop: 01/25/18 18:06 Last Admin: 01/23/18 18:19 Dose: 1 tab - Labs Labs: 01/24/18 05:00 01/24/18 05:00 PT 16.3 Seconds (9.8-13.1) H 01/22/18 10:23 INR 1.5 (0.9-1.2) H 01/22/18 10:23 APTT 31.0 Seconds (25.6-37.1) 01/22/18 10:23 - Constitutional Appears: No Acute Distress - Head Exam Head Exam: ATRAUMATIC, NORMAL INSPECTION, NORMOCEPHALIC - Eye Exam Eye Exam: EOMI, Normal appearance, PERRL Pupil Exam: NORMAL ACCOMODATION, PERRL - ENT Exam ENT Exam: Mucous Membranes Moist, Normal Exam - Neck Exam Neck Exam: Full ROM, Normal Inspection. absent: Lymphadenopathy - Respiratory Exam Respiratory Exam: Prolonged Expiratory Phase, NORMAL BREATHING PATTERN - Cardiovascular Exam Cardiovascular Exam: REGULAR RHYTHM, +S1, +S2. absent: Murmur - GI/Abdominal Exam GI & Abdominal Exam: Soft, Normal Bowel Sounds. absent: Tenderness - Rectal Exam Rectal Exam: NORMAL INSPECTION - Extremities Exam Extremities Exam: Full ROM, Normal Capillary Refill, Normal Inspection. absent : Joint Swelling, Pedal Edema - Back Exam Back Exam: NORMAL INSPECTION - Neurological Exam Neurological Exam: Alert, Awake, CN II-XII Intact, Normal Gait, Oriented x3 - Psychiatric Exam Psychiatric exam: Normal Affect, Normal Mood - Skin Skin Exam: Dry, Intact, Normal Color, Warm Assessment and Plan - Assessment and Plan (Free Text) Assessment: D/O MALIGNANCY WITH METS PNEUMONIA Plan: FOR CT GUIDED BX OF THE MOST ACCESSIBLE LESION
[2018-01-25 10:00] LABS: HEMOGLOBIN 10.6 g/dL (12.0-18.0); MEAN CELL VOLUME 99.5 fl (80.0-94.0); MEAN CORPUSCULAR HEMOGLOBIN 36.6 pg (27.0-31.0); RBC 2.89 Mil/uL (4.40-5.90); WHITE BLOOD COUNT 16.7 K/uL (4.8-10.8)
[2018-01-25 10:01] LABS: BASO # 0.1 K/uL (0.0-0.2); BASO % 0.7 % (0.0-2.0); EOS % 0.1 % (0.0-4.0); LYMPH # 1.4 K/uL (1.0-4.3); LYMPH % 8.2 % (20.0-40.0); MEAN CORPUSCULAR HGB CONC 36.8 g/dL (33.0-37.0); MEAN PLATELET VOLUME 6.9 fl (7.2-11.7); NEUT # 14.2 K/uL (1.8-7.0); RED CELL DISTRIBUTION WIDTH 14.4 % (11.5-14.5)
[2018-01-25 10:13] LABS: INR 1.5 (0.9-1.2); PARTIAL THROMBOPLASTIN TIME 28.9 Seconds (25.6-37.1); PROTHROMBIN TIME 16.3 Seconds (9.8-13.1)
[2018-01-25 10:14] LABS: ALB/GLOB RATIO 0.6 (1.0-2.1); ALBUMIN 2.9 g/dL (3.5-5.0); ALT/SGPT 36 U/L (21-72); AST/SGOT 42 U/L (17-59); BLOOD UREA NITROGEN 9 mg/dl (9-20); CALCIUM 8.5 mg/dL (8.4-10.2); GFR AFRICAN-AMERICAN > 60; GFR NON-AFRICAN AMERICAN > 60
[2018-01-25] MEDS ORDERED: Potassium Chloride 20 mEq ER Tab PO ONE (11:40)
--- NOTE | 2018-01-25 11:45 | CP.PCM.CON ---
History of Present Illness - History of Present Illness History of Present Illness: Orthopedic consultation Dr. Dela Cruz 67M complains of left elbow pain on admission which has now completely resolved. He says the pain was moderate to severe when he came to hospital and he thought he may have hit his arm. No recent falls. No prior elbow pain or injury. Denies pain in other extremities. Denies numbness/tingling Patient admitted for SOB, found to have lung and renal masses, as well as bony and brain metastatic lesions. For biopsy to determine primary. Review of Systems - Review of Systems All systems: reviewed and no additional remarkable complaints except - Constitutional Constitutional: Weight Loss - Cardiovascular Cardiovascular: Chest Pain - Respiratory Respiratory: Dyspnea - Gastrointestinal Additional comments: no n/v - Musculoskeletal Musculoskeletal: As Per HPI - Integumentary Additional comments: skin intact - Neurological Neurological: As Per HPI - Hematologic/Lymphatic Hematologic: absent: As Per HPI, Easy Bleeding, Easy Bruising, Lymphadenopathy, Other Past Patient History - Past Medical History & Family History Past Medical History?: Yes Past Family History: Reviewed and not pertinent - Past Social History Smoking Status: Heavy Smoker > 10 Cigarettes Daily - CARDIAC Hx Cardiac Disorders: No - PULMONARY Hx Respiratory Disorders: Yes - NEUROLOGICAL Hx Neurological Disorder: No - HEENT Hx HEENT Problems: No - RENAL Hx Chronic Kidney Disease: No - ENDOCRINE/METABOLIC Hx Endocrine Disorders: No - HEMATOLOGICAL/ONCOLOGICAL Hx Blood Disorders: No - INTEGUMENTARY Hx Dermatological Problems: No - MUSCULOSKELETAL/RHEUMATOLOGICAL Hx Musculoskeletal Disorders: No Hx Falls: No - GENITOURINARY/GYNECOLOGICAL Hx Genitourinary Disorders: No - PSYCHIATRIC Hx Psychophysiologic Disorder: No Hx Substance Use: No - SURGICAL HISTORY Hx Surgeries: Yes Other/Comment: Polyps removed from throat. - ANESTHESIA Hx Anesthesia: Yes Hx Anesthesia Reactions: No Hx Malignant Hyperthermia: No Meds Allergies/Adverse Reactions: Allergies Allergy/AdvReac Type Severity Reaction Status Date / Time No Known Allergies Allergy Verified 07/26/14 19:39 - Medications Medications: Current Medications Albuterol/Ipratropium (Duoneb 3 Mg/0.5 Mg (3 Ml) Ud) 3 ml INH RQID [facility] Last Admin: 01/25/18 11:25 Dose: 3 ml Dexamethasone (Decadron Inj) 4 mg IV Q12 [facility] Last Admin: 01/25/18 08:36 Dose: 4 mg Vancomycin HCl 1 gm/ Sodium (Chloride) 250 mls @ 166.667 mls/hr IVPB Q12 [facility] PRN Reason: Protocol Last Admin: 01/25/18 10:41 Dose: 166.667 mls/hr Piperacillin Sod/Tazobactam (Sod 3.375 gm/ Sodium Chloride) 100 mls @ 100 mls/ hr IVPB Q6 [facility] PRN Reason: Protocol Last Admin: 01/25/18 09:33 Dose: 100 mls/hr Levetiracetam (Keppra) 500 mg PO BID [facility] Last Admin: 01/25/18 08:36 Dose: 500 mg Oxycodone/Acetaminophen (Percocet 5/325 Mg Tab) 1 tab PO Q4 PRN PRN Reason: Pain, severe (8-10) Stop: 01/25/18 18:06 Last Admin: 01/23/18 18:19 Dose: 1 tab Physical Exam - Constitutional Appears: Well, No Acute Distress - Head Exam Head Exam: ATRAUMATIC - Neck Exam Neck exam: Positive for: Full Rom, Normal Inspection - Respiratory Exam Respiratory Exam: NORMAL BREATHING PATTERN - Cardiovascular Exam Additional comments: +radial pulse - Expanded Upper Extremities Exam Left Shoulder exam: full ROM, normal inspection Elbow exam: full ROM (full pain free range of motion flex/ext/pron/supination), normal inspection (?minimal swelling, no discoloration) Neuro motor exam: finger 2-5 abduction intact, thumb abduction, thumb IP flexion intact, thumb opposition intact, wrist extension intact Neurosensory exam: median nerve intact, radial nerve intact, ulnar nerve intact Vascular exam: radial pulse - Neurological Exam Neurological exam: Alert, Oriented x3 - Psychiatric Exam Psychiatric exam: Normal Affect, Normal Mood - Skin Skin Exam: Dry, Intact, Normal Color, Warm Results - Vital Signs Recent Vital Signs: Last Vital Signs Temp 97.9 F 01/25/18 09:00 Pulse 82 01/25/18 09:00 Resp 18 01/25/18 09:00 BP 148/90 01/25/18 09:00 Pulse Ox 97 01/25/18 09:00 - Labs Result Diagrams: 01/25/18 09:30 01/25/18 09:30 Labs: Laboratory Results - last 24 hr 01/25/18 01/25/18 01/25/18 04:10 09:30 09:30 WBC 16.7 H RBC 2.89 L Hgb 10.6 L Hct 28.7 L MCV 99.5 H MCH 36.6 H MCHC 36.8 RDW 14.4 Plt Count 457 H MPV 6.9 L Neut % (Auto) 85.0 H Lymph % (Auto) 8.2 L [place] % (Auto) 6.0 Eos % (Auto) 0.1 Baso % (Auto) 0.7 Neut # (Auto) 14.2 H Lymph # (Auto) 1.4 [place] # (Auto) 1.0 H Eos # (Auto) 0.0 Baso # (Auto) 0.1 PT 16.3 H INR 1.5 H APTT 28.9 Sodium Potassium Chloride Carbon Dioxide Anion Gap BUN Creatinine Est GFR ( Amer) Est GFR (Non-Af Amer) Random Glucose Calcium Total Bilirubin AST ALT Alkaline Phosphatase Total Protein Albumin Globulin Albumin/Globulin Ratio Vancomycin Trough 13.4 H 01/25/18 09:30 WBC RBC Hgb Hct MCV MCH MCHC RDW Plt Count MPV Neut % (Auto) Lymph % (Auto) [place] % (Auto) Eos % (Auto) Baso % (Auto) Neut # (Auto) Lymph # (Auto) [place] # (Auto) Eos # (Auto) Baso # (Auto) PT INR APTT Sodium 136 Potassium 3.2 L Chloride 98 Carbon Dioxide 26 Anion Gap 15 BUN 9 Creatinine 0.6 L Est GFR ( Amer) > 60 Est GFR (Non-Af Amer) > 60 Random Glucose 173 H Calcium 8.5 Total Bilirubin 0.7 AST 42 ALT 36 Alkaline Phosphatase 175 H Total Protein 8.2 Albumin 2.9 L Globulin 5.3 H Albumin/Globulin Ratio 0.6 L Vancomycin Trough - Impressions Impression: atient Name / ID : FENG APRIL R / [id number] Exam Date : 01/22/2018 18:28:44 ( Approved ) Study Comment : Sex / Age : M / 67Y Creator : Aki Norwood MD Dictator : Aki Norwood MD Manufacturing Inspector : Cryptographic Machine Operator : Aki Norwood MD Approver2 : Report Date : 01/23/2018 08:22:26 My Comment : PROCEDURE: Radiographs of the left elbow. HISTORY: Pain COMPARISON: No prior. FINDINGS: BONES: Possible coronoid process fracture. JOINTS: Unremarkable. SOFT TISSUES: Normal. JOINT EFFUSION: Elevation of the anterior fat pad. OTHER FINDINGS: None IMPRESSION: Elevation of the anterior fat pad consistent with fracture, possibly of the coronoid process. Patient admitted. Assessment & Plan (1) Elbow pain, left Assessment and Plan: xray shows anterior fat pad indicative joint effusion from possible fracture, ? coronoid fracture at this time, patient asymptomatic, no treatment or immobilization indicated on xray, there is noted lucency in proximal ulna, which could be metastatic lesion as well recommend following up with orthopedic oncologist for further management as per Dr. Dela Cruz Status: Acute
--- NOTE | 2018-01-25 11:52 | CP.PCM.PN ---
Subjective - Date & Time of Evaluation Date of Evaluation: 01/25/18 Time of Evaluation: 11:49 - Subjective Subjective: Infectious Disease Progress Note- Dr. Montgomery seen and evaluated at bedside with attending Dr. Montgomery resting comfortably in bed, awake, in NAD reports feeling good denies fever, chills, vomiting denies cough Objective - Vital Signs/Intake and Output Vital Signs (last 24 hours): Temp Pulse Resp BP Pulse Ox 97.9 F 82 18 148/90 97 01/25/18 09:00 01/25/18 09:00 01/25/18 09:00 01/25/18 09:00 01/25/18 09:00 Intake and Output: 01/25/18 01/25/18 06:59 18:59 Intake Total 450 Balance 450 - Medications Medications: Current Medications Albuterol/Ipratropium (Duoneb 3 Mg/0.5 Mg (3 Ml) Ud) 3 ml INH RQID [facility] Last Admin: 01/25/18 11:25 Dose: 3 ml Dexamethasone (Decadron Inj) 4 mg IV Q12 [facility] Last Admin: 01/25/18 08:36 Dose: 4 mg Vancomycin HCl 1 gm/ Sodium (Chloride) 250 mls @ 166.667 mls/hr IVPB Q12 [facility] PRN Reason: Protocol Last Admin: 01/25/18 10:41 Dose: 166.667 mls/hr Piperacillin Sod/Tazobactam (Sod 3.375 gm/ Sodium Chloride) 100 mls @ 100 mls/ hr IVPB Q6 [facility] PRN Reason: Protocol Last Admin: 01/25/18 09:33 Dose: 100 mls/hr Levetiracetam (Keppra) 500 mg PO BID [facility] Last Admin: 01/25/18 08:36 Dose: 500 mg Oxycodone/Acetaminophen (Percocet 5/325 Mg Tab) 1 tab PO Q4 PRN PRN Reason: Pain, severe (8-10) Stop: 01/25/18 18:06 Last Admin: 01/23/18 18:19 Dose: 1 tab - Labs Labs: 01/25/18 09:30 01/25/18 09:30 PT 16.3 Seconds (9.8-13.1) H 01/25/18 09:30 INR 1.5 (0.9-1.2) H 01/25/18 09:30 APTT 28.9 Seconds (25.6-37.1) 01/25/18 09:30 - Constitutional Appears: Non-toxic, Chronically Ill - Head Exam Head Exam: NORMOCEPHALIC - Eye Exam Eye Exam: absent: Scleral icterus Pupil Exam: PERRL - ENT Exam ENT Exam: Mucous Membranes Dry - Neck Exam Neck Exam: absent: Lymphadenopathy - Respiratory Exam Respiratory Exam: Decreased Breath Sounds - Cardiovascular Exam Cardiovascular Exam: REGULAR RHYTHM, +S1, +S2 - GI/Abdominal Exam GI & Abdominal Exam: Soft, Diminished Bowel Sounds. absent: Tenderness - Rectal Exam Rectal Exam: Deferred - Exam Exam: NORMAL INSPECTION - Extremities Exam Extremities Exam: absent: Pedal Edema - Back Exam Back Exam: absent: CVA tenderness (L), CVA tenderness (R) - Neurological Exam Neurological Exam: Alert, CN II-XII Intact, Oriented x3 - Psychiatric Exam Psychiatric exam: Normal Mood - Skin Skin Exam: Dry Assessment and Plan - Assessment and Plan (Free Text) Assessment: Assessment & Plan (1) Brain lesion Status: Acute (2) Leukocytosis Status: Acute (3) Lung mass Status: Acute (4) Pneumonia Status: Acute Plan: c/w current abx regimen
--- NOTE | 2018-01-25 17:33 | CP.PCM.PN ---
Subjective - Date & Time of Evaluation Date of Evaluation: 01/25/18 Time of Evaluation: 17:33 - Subjective Subjective: Mr. Stallworth was seen and examined at the bedside. he is alert, oriented in all spheres. He denies any headache, dizziness, lightheadedness. He states of feeling positive with his diagnosis. He claims of ambulating in a steady gait. He is able to participate in a pleasant conversation with staff and family members. He is aware of going to [facility] for further evaluation and treatment. There was no untoward events overnight. Objective - Vital Signs/Intake and Output Vital Signs (last 24 hours): Temp Pulse Resp BP Pulse Ox 98 F 89 20 161/88 H 95 01/25/18 16:04 01/25/18 16:04 01/25/18 16:04 01/25/18 16:04 01/25/18 16:04 Intake and Output: 01/25/18 01/25/18 06:59 18:59 Intake Total 450 Balance 450 - Medications Medications: Current Medications Albuterol/Ipratropium (Duoneb 3 Mg/0.5 Mg (3 Ml) Ud) 3 ml INH RQID [facility] Last Admin: 01/25/18 15:22 Dose: 3 ml Dexamethasone (Decadron Inj) 4 mg IV Q12 [facility] Last Admin: 01/25/18 08:36 Dose: 4 mg Vancomycin HCl 1 gm/ Sodium (Chloride) 250 mls @ 166.667 mls/hr IVPB Q12 [facility] PRN Reason: Protocol Last Admin: 01/25/18 10:41 Dose: 166.667 mls/hr Piperacillin Sod/Tazobactam (Sod 3.375 gm/ Sodium Chloride) 100 mls @ 100 mls/ hr IVPB Q6 [facility] PRN Reason: Protocol Last Admin: 01/25/18 16:20 Dose: 100 mls/hr Levetiracetam (Keppra) 500 mg PO BID [facility] Last Admin: 01/25/18 16:20 Dose: 500 mg Oxycodone/Acetaminophen (Percocet 5/325 Mg Tab) 1 tab PO Q4 PRN PRN Reason: Pain, severe (8-10) Stop: 01/25/18 18:06 Last Admin: 01/23/18 18:19 Dose: 1 tab - Labs Labs: 01/25/18 09:30 01/25/18 09:30 PT 16.3 Seconds (9.8-13.1) H 01/25/18 09:30 INR 1.5 (0.9-1.2) H 01/25/18 09:30 APTT 28.9 Seconds (25.6-37.1) 01/25/18 09:30 - Constitutional Appears: No Acute Distress - Head Exam Head Exam: NORMAL INSPECTION - Neurological Exam Neurological Exam: Alert, Awake, Oriented x3 Neuro motor strength exam: Left Upper Extremity: 5, Right Upper Extremity: 5, Left Lower Extremity: 5, Right Lower Extremity: 5 Additional comments: Neurological unchanged from previous examination. Assessment and Plan (1) Brain lesion Assessment & Plan: Case discussed with Dr. Vora, continue all current medical regimen including AED. Recommend to repeat CT scan of the head without contrast if patient's mental status decline and for severe headache.Recommend to follow up with a neurooncologist and follow any recommended treatment. Status: Acute
--- NOTE | 2018-01-25 21:57 | CP.PCM.PN ---
Subjective - Date & Time of Evaluation Date of Evaluation: 01/25/18 Time of Evaluation: 20:00 - Subjective Subjective: No complaints. To have percutaneous biopsy set up at [place] Objective - Vital Signs/Intake and Output Vital Signs (last 24 hours): Temp Pulse Resp BP Pulse Ox 98.1 F 89 20 156/95 H 95 01/25/18 19:38 01/25/18 19:38 01/25/18 19:38 01/25/18 19:38 01/25/18 19:38 - Medications Medications: Current Medications Albuterol/Ipratropium (Duoneb 3 Mg/0.5 Mg (3 Ml) Ud) 3 ml INH RQID [facility] Last Admin: 01/25/18 19:03 Dose: 3 ml Dexamethasone (Decadron Inj) 4 mg IV Q12 [facility] Last Admin: 01/25/18 08:36 Dose: 4 mg Vancomycin HCl 1 gm/ Sodium (Chloride) 250 mls @ 166.667 mls/hr IVPB Q12 [facility] PRN Reason: Protocol Last Admin: 01/25/18 21:48 Dose: 166.667 mls/hr Piperacillin Sod/Tazobactam (Sod 3.375 gm/ Sodium Chloride) 100 mls @ 100 mls/ hr IVPB Q6 [facility] PRN Reason: Protocol Last Admin: 01/25/18 16:20 Dose: 100 mls/hr Levetiracetam (Keppra) 500 mg PO BID [facility] Last Admin: 01/25/18 16:20 Dose: 500 mg - Labs Labs: 01/25/18 09:30 01/25/18 09:30 PT 16.3 Seconds (9.8-13.1) H 01/25/18 09:30 INR 1.5 (0.9-1.2) H 01/25/18 09:30 APTT 28.9 Seconds (25.6-37.1) 01/25/18 09:30 - Head Exam Head Exam: ATRAUMATIC - Eye Exam Eye Exam: Normal appearance - ENT Exam ENT Exam: Mucous Membranes Dry - Cardiovascular Exam Cardiovascular Exam: +S1, +S2 - GI/Abdominal Exam GI & Abdominal Exam: Normal Bowel Sounds - Extremities Exam Extremities Exam: Normal Inspection Assessment and Plan (1) Brain lesion Assessment & Plan: steroids and keppra likely brain mets outpatient WBRT Status: Acute (2) Lung mass Assessment & Plan: outpatient biopsy Status: Acute (3) Leukocytosis Status: Acute (4) Coagulopathy Status: Acute
[2018-01-26 00:26] VITALS: RESP 18
[2018-01-26] MEDS: Albuterol-Ipratrop 3 mg / 0.5 (3 ml) UD INH SCH ×2 (07:34→11:37)
--- NOTE | 2018-01-26 08:10 | CP.PCM.DIS ---
Provider - Provider Date of Admission: 01/22/18 13:22 Attending physician: Karen Castro MD Time Spent in preparation of Discharge (in minutes): 15 Diagnosis - Discharge Diagnosis (1) Lung mass Status: Acute (2) DVT prophylaxis Status: Acute (3) Pneumonia Status: Acute Hospital Course - Lab Results Lab Results: Micro Results 01/24/18 12:00 Sputum Gram Stain - Final 01/22/18 13:15 Blood-Venous Blood Culture - Final Coagulase Neg Staphylococcus 01/22/18 13:15 Blood-Venous Gram Stain - Final 01/22/18 14:28 Blood-Venous S.aureus & Coag-Neg Staph PNA FISH - Final 01/22/18 14:28 Blood-Venous Blood Culture - Final Coagulase Neg Staphylococcus 01/22/18 14:28 Blood-Venous Gram Stain - Final Most Recent Lab Values WBC 16.7 K/uL (4.8-10.8) H 01/25/18 09:30 RBC 2.89 Mil/uL (4.40-5.90) L 01/25/18 09:30 Hgb 10.6 g/dL (12.0-18.0) L 01/25/18 09:30 Hct 28.7 % (35.0-51.0) L 01/25/18 09:30 MCV 99.5 fl (80.0-94.0) H 01/25/18 09:30 MCH 36.6 pg (27.0-31.0) H 01/25/18 09:30 MCHC 36.8 g/dL (33.0-37.0) 01/25/18 09:30 RDW 14.4 % (11.5-14.5) 01/25/18 09:30 Plt Count 457 K/uL (130-400) H 01/25/18 09:30 MPV 6.9 fl (7.2-11.7) L 01/25/18 09:30 Neut % (Auto) 85.0 % (50.0-75.0) H 01/25/18 09:30 Lymph % (Auto) 8.2 % (20.0-40.0) L 01/25/18 09:30 [place] % (Auto) 6.0 % (0.0-10.0) 01/25/18 09:30 Eos % (Auto) 0.1 % (0.0-4.0) 01/25/18 09:30 Baso % (Auto) 0.7 % (0.0-2.0) 01/25/18 09:30 Neut # (Auto) 14.2 K/uL (1.8-7.0) H 01/25/18 09:30 Lymph # (Auto) 1.4 K/uL (1.0-4.3) 01/25/18 09:30 [place] # (Auto) 1.0 K/uL (0.0-0.8) H 01/25/18 09:30 Eos # (Auto) 0.0 K/uL (0.0-0.7) 01/25/18 09:30 Baso # (Auto) 0.1 K/uL (0.0-0.2) 01/25/18 09:30 Neutrophils % (Manual) 85 % (42-75) H 01/22/18 10:23 Lymphocytes % (Manual) 8 % (20-50) L 01/22/18 10:23 Monocytes % (Manual) 6 % (0-10) 01/22/18 10:23 Eosinophils % (Manual) 1 % (0-7) 01/22/18 10:23 Toxic Granulation Present 01/22/18 10:23 Platelet Estimate Slightly increased (NORMAL) H 01/22/18 10:23 Large Platelets Present 01/22/18 10:23 Hypochromasia (manual) Slight 01/22/18 10:23 Anisocytosis (manual) Slight 01/22/18 10:23 PT 16.3 Seconds (9.8-13.1) H 01/25/18 09:30 INR 1.5 (0.9-1.2) H 01/25/18 09:30 APTT 28.9 Seconds (25.6-37.1) 01/25/18 09:30 pO2 59 mm/Hg (30-55) H 01/22/18 13:23 VBG pH 7.47 (7.32-7.43) H 01/22/18 13:23 VBG pCO2 36 mmHg (40-60) L 01/22/18 13:23 VBG HCO3 26.8 mmol/L 01/22/18 13:23 VBG Total CO2 27.3 mmol/L (22-28) 01/22/18 13:23 VBG O2 Sat (Calc) 95.8 % (40-65) H 01/22/18 13:23 VBG Base Excess 2.6 mmol/L (0.0-2.0) H 01/22/18 13:23 VBG Potassium 4.1 mmol/L (3.6-5.2) 01/22/18 13:23 Sodium 127.0 mmol/L (132-148) L 01/22/18 13:23 Chloride 95.0 mmol/L (98-107) L 01/22/18 13:23 Glucose 115 mg/dL (75-110) H 01/22/18 13:23 Lactate 1.2 mmol/L (0.7-2.1) 01/22/18 13:23 FiO2 21.0 % 01/22/18 13:23 Sodium 136 mmol/l (132-148) 01/25/18 09:30 Potassium 3.2 MMOL/L (3.6-5.0) L 01/25/18 09:30 Chloride 98 mmol/L (98-107) 01/25/18 09:30 Carbon Dioxide 26 mmol/L (22-30) 01/25/18 09:30 Anion Gap 15 (10-20) 01/25/18 09:30 BUN 9 mg/dl (9-20) 01/25/18 09:30 Creatinine 0.6 mg/dl (0.8-1.5) L 01/25/18 09:30 Est GFR ( Amer) > 60 01/25/18 09:30 Est GFR (Non-Af Amer) > 60 01/25/18 09:30 Random Glucose 173 mg/dL (75-110) H 01/25/18 09:30 Calcium 8.5 mg/dL (8.4-10.2) 01/25/18 09:30 Total Bilirubin 0.7 mg/dl (0.2-1.3) 01/25/18 09:30 AST 42 U/L (17-59) 01/25/18 09:30 ALT 36 U/L (21-72) 01/25/18 09:30 Alkaline Phosphatase 175 U/L (38-126) H 01/25/18 09:30 NT-Pro-B Natriuret Pep 200 pg/ml (0-900) 01/22/18 10:23 Total Protein 8.2 G/DL (6.3-8.2) 01/25/18 09:30 Albumin 2.9 g/dL (3.5-5.0) L 01/25/18 09:30 Globulin 5.3 gm/dL (2.2-3.9) H 01/25/18 09:30 Albumin/Globulin Ratio 0.6 (1.0-2.1) L 01/25/18 09:30 Lipase 107 U/L (23-300) 01/22/18 10:23 Procalcitonin 3.44 NG/ML (0.19-0.49) H 01/25/18 04:10 Venous Blood Potassium 4.1 mmol/L (3.6-5.2) 01/22/18 13:23 Urine Color Yellow (YELLOW) 01/22/18 11:00 Urine Clarity Slighty-cloudy (Clear) 01/22/18 11:00 Urine pH 5.0 (5.0-8.0) 01/22/18 11:00 Ur Specific [place] 1.016 (1.003-1.030) 01/22/18 11:00 Urine Protein Negative mg/dL (NEGATIVE) 01/22/18 11:00 Urine Glucose (UA) Neg mg/dL (Normal) 01/22/18 11:00 Urine Ketones Negative mg/dL (NEGATIVE) 01/22/18 11:00 Urine Blood Negative (NEGATIVE) 01/22/18 11:00 Urine Nitrate Negative (NEGATIVE) 01/22/18 11:00 Urine Bilirubin Negative (NEGATIVE) 01/22/18 11:00 Urine Urobilinogen 4.0 mg/dL (0.2-1.0) 01/22/18 11:00 Ur Leukocyte Esterase Neg Ant/uL (Negative) 01/22/18 11:00 Urine RBC (Auto) 1 /hpf (0-3) 01/22/18 11:00 Urine Microscopic WBC 1 /hpf (0-5) 01/22/18 11:00 Urine Bacteria Rare (<OCC) 01/22/18 11:00 Vancomycin Trough 13.4 ug/mL (5.0-10.0) H 01/25/18 04:10 HIV 1&2 Antibody Screen Negative (NEGATIVE) 01/25/18 04:10 Blood Type O POSITIVE 01/22/18 10:23 Antibody Screen Negative 01/22/18 10:23 BBK History Checked No verified bt 01/22/18 10:23 - Hospital Course Hospital Course: id, pulm, heme/onc consults anbx bx unable to be completed. pt will do outpt at [place] Discharge Exam - Head Exam Head Exam: ATRAUMATIC, NORMAL INSPECTION, NORMOCEPHALIC - Eye Exam Eye Exam: EOMI, Normal appearance, PERRL Pupil Exam: NORMAL ACCOMODATION, PERRL - Respiratory Exam Respiratory Exam: Clear to PA & Lateral, NORMAL BREATHING PATTERN, UNREMARKABLE - Cardiovascular Exam Cardiovascular Exam: REGULAR RHYTHM, RRR, +S1, +S2 - GI/Abdominal Exam GI & Abdominal Exam: Normal Bowel Sounds, Soft, Unremarkable - Extremities Exam Extremities exam: full ROM, normal capillary refill, normal inspection, pedal pulses present - Back Exam Back exam: FULL ROM - Neurological Exam Neurological exam: Alert, CN II-XII Intact, Normal Gait, Oriented x3, Reflexes Normal - Psychiatric Exam Psychiatric exam: Normal Affect, Normal Mood - Skin Skin Exam: Dry, Intact, Normal Color, Warm Discharge Plan - Discharge Medications Prescriptions: Amoxicillin/Clavulanate [Augmentin 875 MG-125 MG] 1 tab PO BID #14 tab Dexamethasone [Decadron] 4 mg PO BID #60 tab levETIRAcetam [Keppra] 500 mg PO BID #60 tab - Follow Up Plan Condition: GUARDED Disposition: HOME/ ROUTINE Additional Instructions: pt doingwell. no f/c, n/v/d. will do outpt bx at [place]. cleared by id for dc home on augmentin, f/u heme/onc outpt/pulm outpt final dx-[place] lung cancer w/ mets, lung mass, kidney mass, post obstructive pna no dyspnea at present.
[2018-01-26] MEDS: Dexamethasone 4 mg/1 ml IV SCH (10:43)
[2018-01-26] MEDS: Piperacillin/Tazobact 3.375 GM in Sodium Chloride 0.9% 100 ML IVPB SCH (10:44)
[2018-01-26 11:48] VITALS: BP 163/91; TEMP 97.9
[2018-01-26 15:13] VITALS: PULSE 64; O2SAT 99
== END 2018-01-26 15:52 | disposition home or self-care (01) | DRG 180 ==
LOC: H.ER 09:30 → H.ERHOLD 13:22 → H.TEL 15:40
PROVIDERS: ADMIT Family Medicine; ATTEND Family Medicine
DX: C34.32 Malignant neoplasm of lower lobe, left bronchus or lung (principal); J18.9 Pneumonia, unspecified organism; C79.31 Secondary malignant neoplasm of brain; C78.7 Secondary malignant neoplasm of liver and intrahepatic bile duct; J44.1 Chronic obstructive pulmonary disease with (acute) exacerbation; J44.0 Chronic obstructive pulmonary disease with (acute) lower respiratory infection; D68.8 Other specified coagulation defects; D72.828 Other elevated white blood cell count; D64.9 Anemia, unspecified; F17.210 Nicotine dependence, cigarettes, uncomplicated

== ENCOUNTER 2018-03-08 12:51 | Inpatient (IN) | payer MEDICARE, OTHER ==
[2018-03-08 12:51] VITALS: BMI 31.9
[2018-03-08] MEDS ORDERED: Albuterol-Ipratrop 3 mg / 0.5 (3 ml) UD IH STA ×2 (13:08)
[2018-03-08] MEDS ORDERED: Sodium Chloride 0.9% 1,000 ML IV STA ×2 (13:08→14:35)
[2018-03-08] MEDS ORDERED: Albuterol-Ipratrop 3 mg / 0.5 (3 ml) UD INH STA (13:08)
[2018-03-08] MEDS ORDERED: Albuterol-Ipratrop 3 mg / 0.5 (3 ml) UD ONE (13:09)
--- NOTE | 2018-03-08 13:12 | ED PDOC ---
HPI: SOB/CHF/COPD Time Seen by Provider: 03/08/18 13:02 Chief Complaint (Nursing): Shortness Of Breath Chief Complaint (Provider): Dyspnea History Per: Patient History/Exam Limitations: no limitations Onset/Duration Of Symptoms: Days (thursday) Current Symptoms Are (Timing): Still Present Additional Complaint(s): Pt. with chest congestion thursday. Since then he has developed dyspnea, cough, runny nose, nasal congestion, weakness all over. No chest pain. No headaches. Decreased appetite since Thursday. Is getting radiation. Was due today for it. [place] PCPMikayla Lema is Oncology. Has stage 4 Ca with mets all over, blood clots in leg. Past Medical History Reviewed: Nursing Documentation, Vital Signs Vital Signs: Last Vital Signs Temp 97.8 F 03/08/18 12:55 Pulse 163 H 03/08/18 15:31 Resp 18 03/08/18 15:31 BP 108/82 03/08/18 15:31 Pulse Ox 100 03/08/18 16:13 - Medical History PMH: Pneumonia Denies: Chronic Kidney Disease Other PMH: Dvt on elaquis; lung Ca stage 4 with diffuse mets - Family History Family History: States: Unknown Family Hx - Immunization History Hx Tetanus Toxoid Vaccination: (UTD as of last year) - Home Medications Home Medications: Ambulatory Orders Medication Instructions Recorded Apixaban [Eliquis] 2.5 mg PO Q12 03/08/18 Fluticasone/Salmeterol 250/50 1 puff IH Q12 03/08/18 [Advair Diskus 250/50] fentaNYL 75 mcg/hr [Duragesic 1 patch TD Q72H 03/08/18 Patch 75 mcg/hr] oxyCODONE/Acetaminophen [Percocet 1 tab PO Q8 PRN 03/08/18 5/325 mg Tab] - Allergies Allergies/Adverse Reactions: Allergies Allergy/AdvReac Type Severity Reaction Status Date / Time No Known Allergies Allergy Verified 03/08/18 12:55 Review of Systems ROS Statement: Except As Marked, All Systems Reviewed And Found Negative Constitutional: Positive for: Weakness ENT: Positive for: Nose Pain, Nose Congestion Respiratory: Positive for: Cough, Shortness of Breath Neurological: Positive for: Weakness Physical Exam - Reviewed Nursing Documentation Reviewed: Yes Vital Signs Reviewed: Yes - Physical Exam Appears: Positive for: Uncomfortable Head Exam: Positive for: ATRAUMATIC, NORMAL INSPECTION, NORMOCEPHALIC Skin: Positive for: Dry Eye Exam: Positive for: EOMI, Normal appearance, PERRL ENT: Positive for: Nasal Congestion. Negative for: Pharyngeal Erythema Neck: Positive for: Normal, Painless ROM, Supple Cardiovascular/Chest: Positive for: Tachycardia (sinus mild) Respiratory: Positive for: Decreased Breath Sounds (mild coarse diffuse). Negative for: Accessory Muscle Use, Wheezing Gastrointestinal/Abdominal: Positive for: Normal Exam, Soft. Negative for: Tenderness Back: Positive for: Normal Inspection. Negative for: L CVA Tenderness, R CVA Tenderness Extremity: Positive for: Normal ROM. 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 Negative for: Motor/Sensory Deficits, Aphasia - Laboratory Results Result Diagrams: 03/08/18 13:27 03/08/18 13:27 Interpretation Of Abn Labs: 35.4 wbc, lactate 2.7, bun 22 - ECG ECG: Positive for: Interpreted By Me, Viewed By Me ECG Rhythm: Positive for: Normal QRS, Sinus Tachycardia (mild 110). Negative for: SVT Interpretation Of Abn EKG: EKG 2: A flutter 162 O2 Sat by Pulse Oximetry: 100 Pulse Ox Interpretation: Normal - Radiology X-Ray: Read By Radiologist X-Ray Interpretation: Other (Left hilar adenopathy; tumor) - Progress ED Course And Treament: 1326: Pt. and family at bedside. Pt. is aaox3. Has capacity to make decisions. Pt. states he does not want any tubes down his throat to help him breath, no cpr, no compressions, no central lines. Wants comfort care with no aggressive interventions. Is a DNR, DNI. Family agree with his decisions. 1528: Pt. in a-flutter. 162 hr. States he feels much better after the IV fluids. No dyspnea or pain. No palpitations. BP up to 108-114 systolic. No hx of rhythm issues. Will give cardizem. 1556: HR still 160s. Will give digoxin 0.25mg IV, considering BP borderline. Spoke with Niall for Dr. Castro who will admit. 1611: Spoke with Dr. Ansari. Made aware of findings. Agrees with digoxin. Will give 10mg more cardizem if needed. WBC elevated likely from cancer. Dr. Pal aware and will admit. - Critical Care Total Time (In Min): 60 Documented Critical Care: Time excludes all time spent performint seperately billable procedures Disposition - Clinical Impression Clinical Impression: Weakness, Dyspnea, Metastatic cancer, Atrial flutter - Patient ED Disposition Is Patient to be Admitted: Yes Counseled Patient/Family Regarding: Studies Performed, Diagnosis - Disposition Disposition Time: 16:46 Condition: FAIR - Pt Status Changed To: Hospital Disposition Of: Inpatient - Admit Certification Admit to Inpatient:: After my assessment, the patient will require hospitalization for at least two midnights. This is because of the severity of symptoms shown, intensity of services needed, and/or the medical risk in this patient being treated as an outpatient. - POA Present On Arrival: Deep Vein Thrombosis / PE (hx)
[2018-03-08 13:33] LABS: BASO # 0.1 K/uL (0.0-0.2); BASO % 0.1 % (0.0-2.0); EOS # 0.1 K/uL (0.0-0.7); EOS % 0.2 % (0.0-4.0); HEMOGLOBIN 13.8 g/dL (12.0-18.0); LYMPH # 0.9 K/uL (1.0-4.3); LYMPH % 2.5 % (20.0-40.0); MEAN CELL VOLUME 97.2 fl (80.0-94.0); MEAN CORPUSCULAR HEMOGLOBIN 32.4 pg (27.0-31.0); MEAN CORPUSCULAR HGB CONC 33.3 g/dL (33.0-37.0); MEAN PLATELET VOLUME 7.2 fl (7.2-11.7); MONO # 1.3 K/uL (0.0-0.8); MONO % 3.6 % (0.0-10.0); NEUT # 33.1 K/uL (1.8-7.0); NEUT % 93.6 % (50.0-75.0); PLATELET COUNT 323 K/uL (130-400); RBC 4.26 Mil/uL (4.40-5.90); RED CELL DISTRIBUTION WIDTH 16.7 % (11.5-14.5)
[2018-03-08 13:43] LABS: INR 1.4 (0.9-1.2); PARTIAL THROMBOPLASTIN TIME 30.1 Seconds (25.6-37.1); PROTHROMBIN TIME 16.1 Seconds (9.8-13.1)
[2018-03-08 13:48] LABS: ABG ALLEN TEST YES; ARTERIAL BLOOD GAS HCO3 25.1 mmol/L (21-28); ARTERIAL BLOOD GAS O2 SAT 100.5 % (95-98); ARTERIAL BLOOD GAS PCO2 24 mm/Hg (35-45); ARTERIAL BLOOD GAS PH 7.55 (7.35-7.45); ARTERIAL BLOOD GAS PO2 117 mm/Hg (80-100); ARTERIAL BLOOD GAS TCO2 21.7 mmol/L (22-28)
[2018-03-08 13:49] LABS: ALB/GLOB RATIO 0.7 (1.0-2.1); ALBUMIN 3.2 g/dL (3.5-5.0); ALT/SGPT 46 U/L (21-72); AST/SGOT 37 U/L (17-59); BLOOD UREA NITROGEN 22 mg/dl (9-20); GFR AFRICAN-AMERICAN > 60; GFR NON-AFRICAN AMERICAN > 60
[2018-03-08 14:00] LABS: B-TYPE NATRIURETIC PEPTIDE 861 pg/ml (0-900)
--- NOTE | 2018-03-08 14:11 | RAD ---
HISTORY: Sepsis Patient COMPARISON: Chest radiographs 01/22/2018. FINDINGS: LUNGS: Diminished left perihilar density in a patient with known history pulmonary mass and lymphadenopathy. Relatively prominent density abutting the aortic knob also somewhat diminished. Limited appears cyst in ill defined hazy density inferior left lung zone unchanged which appear to reflect postobstructive atelectasis in prior chest CT 01/22/2018. Right lung appears clear throughout. PLEURA: No significant pleural effusion identified, no pneumothorax apparent. CARDIOVASCULAR: Normal. OSSEOUS STRUCTURES: No significant abnormalities. VISUALIZED UPPER ABDOMEN: Normal. OTHER FINDINGS: None. IMPRESSION: Its left hilar adenopathy and possibly tumor burden in the left suprahilar region residual limited airspace disease at the left base. No right-sided infiltrate. No pleural effusion or pneumothorax bilaterally.
[2018-03-08] MEDS ORDERED: Sodium Chloride 0.9% 50 ML IV ONE (14:20)
[2018-03-08] MEDS ORDERED: Iodixanol 320 MG/ML 100 ML BOTTLE IV ONE (14:20)
[2018-03-08 14:21] LABS: WHITE BLOOD COUNT 35.4 K/uL (4.8-10.8)
[2018-03-08 15:10] LABS: LYMPHOCYTE 3 % (20-50); MONOCYTE 3 % (0-10); MYELOCYTE 1 % (0-0); NEUTROPHIL 93 % (42-75); PLATELET ESTIMATE NORMAL (NORMAL); TOTAL CELLS COUNTED 100
[2018-03-08 15:11] LABS: ANISOCYTOSIS SLIGHT; TOXIC GRANULATION PRESENT
[2018-03-08] MEDS ORDERED: Digoxin 500 mcg/2ml (0.5 mg/2ml) Inj IVP STA (15:56)
[2018-03-08] MEDS ORDERED: Digoxin 500 mcg/2ml (0.5 mg/2ml) Inj ONE (15:56)
[2018-03-08 16:02] LABS: SQUAMOUS EPITHIAL < 1 /hpf (0-5); URINE BILIRUBIN NEGATIVE (NEGATIVE); URINE BLOOD NEGATIVE (NEGATIVE); URINE CLARITY CLEAR (Clear); URINE COLOR YELLOW (YELLOW); URINE GLUCOSE (UA) NEG (Normal); URINE LEUKOCYTE ESTERASE NEG Leu/uL (Negative); URINE PROTEIN NEGATIVE (NEGATIVE)
--- NOTE | 2018-03-08 16:11 | CT ---
PROCEDURE: CT chest with contrast (Pulmonary Angiogram) HISTORY: Chest pain COMPARISON: Comparison made with prior CT scan chest, abdomen and pelvis 02/01/2018. The the TECHNIQUE: Contiguous helical - transaxial sections were obtained of the chest in the pulmonary arterial phase of enhancement. Coronal and sagittal reformatted images were created and reviewed. Intravenous contrast dose: 99 cc Visipaque 320 Radiation dose: Total exam DLP = 463.81 mGy-cm. This CT exam was performed using one or more of the following dose reduction techniques: Automated exposure control, adjustment of the mA and/or kV according to patient size, and/or use of iterative reconstruction technique. FINDINGS: PULMONARY ARTERIES: Unremarkable. No pulmonary embolism. AORTA: No acute findings. No thoracic aortic aneurysm. LUNGS: There is an area of atelectasis and/or infarct possibly due to compression and complete occlusion of left upper lobe branch vessels of the lower lobe -lingular branches of the pulmonary artery of extending to the anterolateral pleural surface. . There is a small elliptical shaped spiculated appearing lesion left upper lobe measuring approximately 11 mm. Soft tissue tumor of presumably extends into the subpleural space dorsal to the lytic lesion left posterior ninth rib. PLEURAL SPACES: Unremarkable. No effusion or pneumothorax. HEART: Heart is enlarged. No significant pericardial effusion. LYMPH NODES: There is a massive conglomeration of the mediastinal adenopathy superior mediastinum. Large amount of adenopathy seen in the right paratracheal, pretracheal, precarinal and subcarinal of regions extending into the right as azygoesophageal recess. . There is also extension of adenopathy into the left hilar region which partially surrounds the left mainstem bronchus compresses and at nearly completely surrounds the left mainstem bronchus. Tumor also completely surrounds the left main pulmonary artery which markedly narrowed thread-like TIA in appearance in some locations. Tumor extends peripherally partially surrounds lower lobe of lower lobe branch vessels and markedly compresses the left upper lobe branches. BONES, CHEST WALL: Large soft tissue mass in the left supraclavicular region which has apparently extended the into or out from the distal left clavicle (incompletely visualized) with destructive changes of the visualized portions of the distal left clavicle. Tumor also encroaches into the left scapula which is with partial destructive changes and significant sclerosis. Tumor may also extend into the left humeral head. . There is also a soft tissue tumor mass which has partially destroys the left anterior 1st rib with soft component extending into the anterior inferior chest wall subpleural space of the upper lobe. There are scattered metastatic rib lesions also present with an apparent pathologic rib fracture involving the left lateral 7th rib. . There is a lesion not seen in the posterior aspect right 8th rib with a larger associated with destructive changes right posterior 9th rib. Multilevel degenerative spondylosis of the thoracic spine with anterior wedge compression deformities of multiple mid and lower thoracic segments. Scattered sclerotic and lytic metastatic lesions are also noted. Large lytic lesion present within the manubriosternal junction. OTHER FINDINGS: Unremarkable. IMPRESSION: There are multiple skeletal metastases as some of which are associated with adjacent soft tissue tumor components as above. In addition, massive amount of mediastinal and left hilar adenopathy results in marked compression of the left main pulmonary artery as well as multiple upper abdominal wall branch vessels. There is a relatively large wedge and/or elliptical shaped area of consolidation in the left upper lobe that may represent some combination of atelectasis and possibly infarct related to compressive effects on the distal pulmonary artery branch vessels. Small 11 mm spiculated density left lung apex. There is a subpleural tumor component extending anteriorly from the posterior aspect right 9th rib into the lung parenchyma headaches mid Note these findings discussed with Dr. Nicolas at approximately 4 p.m. with written down and read back verification.
[2018-03-08 17:30] LABS: VENOUS BLOOD GAS BASE EXCESS -1.5 mmol/L (0.0-2.0); VENOUS BLOOD GAS PCO2 30 mmHg (40-60); VENOUS BLOOD GAS PO2 86 mm/Hg (30-55); VENOUS BLOOD PH 7.46 (7.32-7.43)
[2018-03-08] MEDS ORDERED: Potassium Ch 20mEq in D5-1/2NS 1,000 ML IV SCH (17:30)
[2018-03-08] MEDS: Potassium Chl 20 mEq in D5-NS 1,000 ML IV SCH (18:10)
--- NOTE | 2018-03-08 19:26 | CP.PCM.CON ---
History of Present Illness - History of Present Illness History of Present Illness: I was asked to evaluate patient for atrial flutter. Patient is a 67 marianne old male with Stage IV linbg cancer who presents with dyspnea. The patient has undergone radiation therapy ath [facility], and was scheduled to go today. He felt progressively dsypenic which began 3 days ago. He was initaly in sinut tachcrdia but then developed atrial flutter. He denies chest pain. Review of Systems - Constitutional Constitutional: absent: As Per HPI, Anorexia, Chills, Daytime Sleepiness, Excessive Sweating, Fatigue, Fever, Frequent Falls, Headache, Increased Appetite , Lethargy, Malaise, Night Sweats, Snoring, Sleep Apnea, Weight Gain, Weight Loss, Weakness, Other - EENT Eyes: absent: As Per HPI, Blind Spots, Blurred Vision, Change in Vision, Decreased Night Vision, Diplopia, Discharge, Dry Eye, Exophthalmos, Floaters, Irritation, Itchy Eyes, Loss of Peripheral Vision, Pain, Photophobia, Requires Corrective Lenses, Sees Flashes, Spots in Vision, Tunnel Vision, Other Visual Disturbances, Loss of Vision, Other Ears: absent: As Per HPI, Decreased Hearing, Ear Discharge, Ear Pain, Tinnitus, Abnormal Hearing, Disequilibrium, Dizziness, Other Nose/Mouth/Throat: absent: As Per HPI, Epistaxis, Nasal Congestion, Nasal Discharge, Nasal Obstruction, Nasal Trauma, Nose Pain, Post Nasal Drip, Sinus Pain, Sinus Pressure, Bleeding Gums, Change in Voice, Dental Pain, Dry Mouth, Dysphagia, Halitosis, Hoarsness, Lip Swelling, Mouth Lesions, Mouth Pain, Odynophagia, Sore Throat, Throat Swelling, Tongue Swelling, Facial Pain, Neck Pain, Neck Mass, Other - Cardiovascular Cardiovascular: Dyspnea - Respiratory Respiratory: Dyspnea - Gastrointestinal Gastrointestinal: absent: As Per HPI, Abdominal Pain, Belching, Bloating, Change in Bowel Habits, Change in Stool Character, Coffee Ground Emesis, Constipation, Cramping, Diarrhea, Dyspepsia, Dysphagia, Early Satiety, Excessive Flatus, Fecal Incontinence, Heartburn, Hematemesis, Hematochezia, Loose Stools, Melena, Nausea, Odynophagia, Temesmus, Vomiting, Other - Genitourinary Genitourinary: absent: As Per HPI, Change in Urinary Stream, Difficulty Urinating, Dysuria, Flank Pain, Hematuria, Pyuria, Nocturia, Urinary Incontinence, Urinary Frequency, Urinary Hesitance, Urinary Urgency, Voiding Freq/Small Amts, Freq UTI, Hx Renal/Bladder Calculi, Hx /Renal Surgery, Bladder Distension, Other - Musculoskeletal Musculoskeletal: absent: As Per HPI, Abnormal Gait, Arthralgias, Atrophy, Back Pain, Deformity, Joint Swelling, Limited Range of Motion, Loss of Height, Muscle Cramps, Muscle Weakness, Myalgias, Neck Pain, Numbness, Radiating Pain into Limb, Stiffness, Tingling, Other - Integumentary Integumentary: absent: As Per HPI, Acne, Alopecia, Bleeding Lesions, Change in Hair, Change in Nails, Change in Pigmentation, Changing Lesions, Dry Skin, Erythema, Furuncle, Hirsutism, Lesions, New Lesions, Non-Healing Lesions, Photosensitivity, Pruritus, Rash, Skin Pain, Skin Ulcer, Sores, Striae, Swelling , Unusual Bruising, Wounds, Jaundice, Other - Neurological Neurological: absent: As Per HPI, Abnormal Gait, Abnormal Hearing, Abnormal Movements, Abnormal Speech, Behavioral Changes, Burning Sensations, Confusion, Convulsions, Disequilibrium, Dizziness, Numbness, Focal Weakness, Frequent Falls , Headaches, Lack of Coordination, Loss of Vision, Memory Loss, Paresthesias, Radicular Pain, Restless Legs, Sensory Deficit, Syncope, Tingling, Tremor, Vertigo, Weakness, Other Visual Disturbances, Other - Psychiatric Psychiatric: absent: As Per HPI, Abnormal Sleep Pattern, Anhedonia, Anxiety, Auditory Hallucinations, Behavioral Changes, Change in Appetite, Change in Libido, Confusion, Depression, Difficulty Concentrating, Hallucinations, Homicidal Ideation, Hopelessness, Irritability, Memory Loss, Mood Swings, Panic Attacks, Paranoia, Suicidal Ideation, Visual Hallucinations, Tactile Hallucinations, Other - Endocrine Endocrine: absent: As Per HPI, Change in Body Appearance, Change in Libido, Cold Intolorance, Deepening of Voice, Excessive Sweating, Fatigue, Flushing, Heat Intolorance, Increase in Ring/Shoe/Hat Size, Palpitations, Polydipsia, Polyphagia, Polyuria, Other - Hematologic/Lymphatic Hematologic: absent: As Per HPI, Easy Bleeding, Easy Bruising, Lymphadenopathy, Other Past Patient History - Past Medical History & Family History Past Medical History?: Yes - Past Social History Smoking Status: Heavy Smoker > 10 Cigarettes Daily - CARDIAC Hx Cardiac Disorders: No - PULMONARY Hx Pneumonia: Yes - NEUROLOGICAL Hx Neurological Disorder: No - HEENT Hx HEENT Problems: No - RENAL Hx Chronic Kidney Disease: No - ENDOCRINE/METABOLIC Hx Endocrine Disorders: No - HEMATOLOGICAL/ONCOLOGICAL Hx Blood Disorders: No - INTEGUMENTARY Hx Dermatological Problems: No - MUSCULOSKELETAL/RHEUMATOLOGICAL Hx Musculoskeletal Disorders: No Hx Falls: No - GENITOURINARY/GYNECOLOGICAL Hx Genitourinary Disorders: No - PSYCHIATRIC Hx Psychophysiologic Disorder: No Hx Substance Use: No - SURGICAL HISTORY Hx Surgeries: Yes Other/Comment: Polyps removed from throat. - ANESTHESIA Hx Anesthesia: Yes Hx Anesthesia Reactions: No Hx Malignant Hyperthermia: No Meds Allergies/Adverse Reactions: Allergies Allergy/AdvReac Type Severity Reaction Status Date / Time No Known Allergies Allergy Verified 03/08/18 12:55 - Medications Medications: Current Medications Albuterol/Ipratropium (Duoneb 3 Mg/0.5 Mg (3 Ml) Ud) 3 ml INH RTID [facility] Apixaban (Eliquis) 2.5 mg PO Q12 [facility] PRN Reason: Protocol Fentanyl (Duragesic) 1 patch TD Q72H [facility] PRN Reason: Protocol Last Admin: 03/08/18 16:56 Dose: 1 patch Potassium Chloride/Dextrose/Sod Cl (Potassium Chl 20 Meq In D5-Ns) 1,000 mls @ 50 mls/hr IV .Q20H [facility] Stop: 03/09/18 17:19 Last Admin: 03/08/18 18:10 Dose: 50 mls/hr Metoprolol Tartrate (Lopressor) 12.5 mg PO Q12 [facility] Morphine Sulfate (Morphine) 2 mg IVP Q6 PRN PRN Reason: Pain, moderate (4-7) Nicotine (Nicoderm Cq) 1 patch TD DAILY [facility] Oxycodone/Acetaminophen (Percocet 5/325 Mg Tab) 1 tab PO Q8 PRN PRN Reason: Pain, severe (8-10) Stop: 03/11/18 16:04 Fluticasone/Salmeterol (Advair Diskus 250/50) 1 puff IH Q12 [facility] Physical Exam - Constitutional Appears: Chronically Ill - Head Exam Head Exam: NORMAL INSPECTION - Eye Exam Eye Exam: Normal appearance - ENT Exam ENT Exam: Mucous Membranes Moist - Neck Exam Neck exam: Positive for: Full Rom - Respiratory Exam Respiratory Exam: Decreased Breath Sounds - Cardiovascular Exam Cardiovascular Exam: Tachycardia, Irregular Rhythm - GI/Abdominal Exam GI & Abdominal Exam: Normal Bowel Sounds - Rectal Exam Rectal Exam: Deferred - Extremities Exam Extremities exam: Negative for: pedal edema - Back Exam Back exam: NORMAL INSPECTION - Neurological Exam Neurological exam: Alert, Oriented x3 - Psychiatric Exam Psychiatric exam: Normal Affect - Skin Skin Exam: Normal Color Results - Vital Signs Recent Vital Signs: Last Vital Signs Temp 98.7 F 03/08/18 15:30 Pulse 164 H 03/08/18 17:44 Resp 19 03/08/18 17:44 BP 117/76 03/08/18 17:44 Pulse Ox 97 03/08/18 17:44 - Labs Result Diagrams: 03/08/18 13:27 03/08/18 13:27 Labs: Laboratory Results - last 24 hr 03/08/18 03/08/18 03/08/18 13:27 13:27 13:27 WBC 35.4 H D RBC 4.26 L Hgb 13.8 D Hct 41.4 MCV 97.2 H D MCH 32.4 H MCHC 33.3 RDW 16.7 H Plt Count 323 D MPV 7.2 Neut % (Auto) 93.6 H Lymph % (Auto) 2.5 L [place] % (Auto) 3.6 Eos % (Auto) 0.2 Baso % (Auto) 0.1 Neut # (Auto) 33.1 H Lymph # (Auto) 0.9 L [place] # (Auto) 1.3 H Eos # (Auto) 0.1 Baso # (Auto) 0.1 Neutrophils % (Manual) 93 H Lymphocytes % (Manual) 3 L Monocytes % (Manual) 3 Myelocytes % 1 H Toxic Granulation Present Platelet Estimate Normal Anisocytosis (manual) Slight PT INR APTT pCO2 pO2 HCO3 ABG pH ABG Total CO2 ABG O2 Saturation ABG Base Excess Shaan Test ABG Potassium VBG pH VBG pCO2 VBG HCO3 VBG Total CO2 VBG O2 Sat (Calc) VBG Base Excess VBG Potassium A-a O2 Difference Glucose Lactate FiO2 Sodium 132 Potassium 4.4 Chloride 97 L Carbon Dioxide 18 L Anion Gap 21 H BUN 22 H Creatinine 0.7 L Est GFR ( Amer) > 60 Est GFR (Non-Af Amer) > 60 Random Glucose 163 H Calcium 9.0 Phosphorus 3.5 Magnesium 1.7 Total Bilirubin 1.6 H AST 37 ALT 46 Alkaline Phosphatase 224 H D Troponin I 0.0130 NT-Pro-B Natriuret Pep 861 Total Protein 7.9 Albumin 3.2 L Globulin 4.7 H Albumin/Globulin Ratio 0.7 L Arterial Blood Potassium Venous Blood Potassium Urine Color Urine Clarity Urine pH Ur Specific [place] Urine Protein Urine Glucose (UA) Urine Ketones Urine Blood Urine Nitrate Urine Bilirubin Urine Urobilinogen Ur Leukocyte Esterase Urine RBC (Auto) Urine Microscopic WBC Ur Squamous Epith Cells Influenza Typ A,B (EIA) Negative for flu a/b 03/08/18 03/08/18 03/08/18 13:27 13:39 15:50 WBC RBC Hgb Hct MCV MCH MCHC RDW Plt Count MPV Neut % (Auto) Lymph % (Auto) [place] % (Auto) Eos % (Auto) Baso % (Auto) Neut # (Auto) Lymph # (Auto) [place] # (Auto) Eos # (Auto) Baso # (Auto) Neutrophils % (Manual) Lymphocytes % (Manual) Monocytes % (Manual) Myelocytes % Toxic Granulation Platelet Estimate Anisocytosis (manual) PT 16.1 H INR 1.4 H APTT 30.1 pCO2 24 L pO2 117 H HCO3 25.1 ABG pH 7.55 H ABG Total CO2 21.7 L ABG O2 Saturation 100.5 H ABG Base Excess 0.2 Shaan Test Yes ABG Potassium 3.8 VBG pH VBG pCO2 VBG HCO3 VBG Total CO2 VBG O2 Sat (Calc) VBG Base Excess VBG Potassium A-a O2 Difference 81.0 Glucose 178 H Lactate 2.7 H FiO2 32.0 Sodium 129.0 L Potassium Chloride 101.0 Carbon Dioxide Anion Gap BUN Creatinine Est GFR ( Amer) Est GFR (Non-Af Amer) Random Glucose Calcium Phosphorus Magnesium Total Bilirubin AST ALT Alkaline Phosphatase Troponin I NT-Pro-B Natriuret Pep Total Protein Albumin Globulin Albumin/Globulin Ratio Arterial Blood Potassium 3.8 Venous Blood Potassium Urine Color Yellow Urine Clarity Clear Urine pH 6.0 Ur Specific [place] > 1.060 H Urine Protein Negative Urine Glucose (UA) Neg Urine Ketones Negative Urine Blood Negative Urine Nitrate Negative Urine Bilirubin Negative Urine Urobilinogen 4.0 Ur Leukocyte Esterase Neg Urine RBC (Auto) 2 Urine Microscopic WBC 1 Ur Squamous Epith Cells < 1 Influenza Typ A,B (EIA) 03/08/18 17:26 WBC RBC Hgb Hct MCV MCH MCHC RDW Plt Count MPV Neut % (Auto) Lymph % (Auto) [place] % (Auto) Eos % (Auto) Baso % (Auto) Neut # (Auto) Lymph # (Auto) [place] # (Auto) Eos # (Auto) Baso # (Auto) Neutrophils % (Manual) Lymphocytes % (Manual) Monocytes % (Manual) Myelocytes % Toxic Granulation Platelet Estimate Anisocytosis (manual) PT INR APTT pCO2 pO2 86 H HCO3 ABG pH ABG Total CO2 ABG O2 Saturation ABG Base Excess Shaan Test ABG Potassium VBG pH 7.46 H VBG pCO2 30 L VBG HCO3 23.8 VBG Total CO2 22.2 VBG O2 Sat (Calc) 99.9 H VBG Base Excess -1.5 L VBG Potassium 4.1 A-a O2 Difference Glucose 209 H Lactate 2.2 H FiO2 21.0 Sodium 131.0 L Potassium Chloride 101.0 Carbon Dioxide Anion Gap BUN Creatinine Est GFR ( Amer) Est GFR (Non-Af Amer) Random Glucose Calcium Phosphorus Magnesium Total Bilirubin AST ALT Alkaline Phosphatase Troponin I NT-Pro-B Natriuret Pep Total Protein Albumin Globulin Albumin/Globulin Ratio Arterial Blood Potassium Venous Blood Potassium 4.1 Urine Color Urine Clarity Urine pH Ur Specific [place] Urine Protein Urine Glucose (UA) Urine Ketones Urine Blood Urine Nitrate Urine Bilirubin Urine Urobilinogen Ur Leukocyte Esterase Urine RBC (Auto) Urine Microscopic WBC Ur Squamous Epith Cells Influenza Typ A,B (EIA) - EKG Data EKG Interpreted by: Myself Assessment & Plan (1) Atrial flutter Assessment and Plan: new onset. recommen rte control. curretnly not usntable. will start cardizem. if become s usntable will consider cardioversion. recommend anticoagulation to reduce risk of CVA. Status: Acute
[2018-03-08] MEDS: Albuterol-Ipratrop 3 mg / 0.5 (3 ml) UD INH SCH (20:00)
[2018-03-08] MEDS: Fluticasone-Salmeterol 250-50mcg Diskus IH SCH (21:21)
[2018-03-08] MEDS ORDERED: Digoxin 500 mcg/2ml (0.5 mg/2ml) Inj IVP ONE (23:50)
[2018-03-09] MEDS ORDERED: Metoprolol 1 mg/ml Inj IVP ONE (01:05)
[2018-03-09] MEDS ORDERED: Sodium Chloride 0.9% 500 ML IV ONE (01:05)
[2018-03-09 05:32] LABS: BASO # 0.2 K/uL (0.0-0.2); BASO % 0.5 % (0.0-2.0); HEMOGLOBIN 11.6 g/dL (12.0-18.0); LYMPH # 0.5 K/uL (1.0-4.3); LYMPH % 1.1 % (20.0-40.0); MEAN CELL VOLUME 97.7 fl (80.0-94.0); MEAN CORPUSCULAR HEMOGLOBIN 32.2 pg (27.0-31.0); MONO # 0.9 K/uL (0.0-0.8); MONO % 2.1 % (0.0-10.0); NEUT # 40.5 K/uL (1.8-7.0); NEUT % 96.3 % (50.0-75.0); PLATELET COUNT 263 K/uL (130-400); RED CELL DISTRIBUTION WIDTH 16.6 % (11.5-14.5)
[2018-03-09 05:44] LABS: WHITE BLOOD COUNT 42.1 K/uL (4.8-10.8)
[2018-03-09 06:09] LABS: ALB/GLOB RATIO 0.7 (1.0-2.1); ALBUMIN 2.5 g/dL (3.5-5.0); ALT/SGPT 38 U/L (21-72); AST/SGOT 25 U/L (17-59); BLOOD UREA NITROGEN 20 mg/dl (9-20); CALCIUM 8.1 mg/dL (8.4-10.2); GFR AFRICAN-AMERICAN > 60; GFR NON-AFRICAN AMERICAN > 60
[2018-03-09] MEDS: Albuterol-Ipratrop 3 mg / 0.5 (3 ml) UD INH SCH ×3 (07:34→19:12)
--- NOTE | 2018-03-09 07:51 | CP.PCM.HP ---
History of Present Illness - History of Present Illness History of Present Illness: pt admitted for tachycardia, dyspnea and new onset a flutter rate slowed to 80s / nsr with cardizem bolis/infusion pt states feels better today no fcnvd all bw noted pt undergoing radiation at [place] for lung ca w/ bone/brain mets Present on Admission - Present on Admission Any Indicators Present on Admission: No Review of Systems - Cardiovascular Cardiovascular: As Per HPI, Rapid Heart Rate - Respiratory Respiratory: As Per HPI, Dyspnea on Exertion, Chest Congestion Past Patient History - Past Medical History & Family History Past Medical History?: Yes - Past Social History Smoking Status: Former Smoker - CARDIAC Hx Cardiac Disorders: No - PULMONARY Hx Pneumonia: Yes - NEUROLOGICAL Hx Neurological Disorder: No - HEENT Hx HEENT Problems: No - RENAL Hx Chronic Kidney Disease: No - ENDOCRINE/METABOLIC Hx Endocrine Disorders: No - HEMATOLOGICAL/ONCOLOGICAL Hx Blood Disorders: No - INTEGUMENTARY Hx Dermatological Problems: No - MUSCULOSKELETAL/RHEUMATOLOGICAL Hx Musculoskeletal Disorders: No Hx Falls: Yes - GENITOURINARY/GYNECOLOGICAL Hx Genitourinary Disorders: No - PSYCHIATRIC Hx Psychophysiologic Disorder: No Hx Substance Use: No - SURGICAL HISTORY Hx Surgeries: Yes Other/Comment: Polyps removed from throat. - ANESTHESIA Hx Anesthesia: Yes Hx Anesthesia Reactions: No Hx Malignant Hyperthermia: No Meds Allergies/Adverse Reactions: Allergies Allergy/AdvReac Type Severity Reaction Status Date / Time No Known Allergies Allergy Verified 03/08/18 12:55 Physical Exam - Constitutional Appears: Non-toxic, No Acute Distress - Head Exam Head Exam: ATRAUMATIC, NORMAL INSPECTION, NORMOCEPHALIC - Eye Exam Eye Exam: EOMI, Normal appearance, PERRL Pupil Exam: NORMAL ACCOMODATION, PERRL - ENT Exam ENT Exam: Mucous Membranes Moist, Normal Exam - Neck Exam Neck exam: Positive for: Normal Inspection - Respiratory Exam Respiratory Exam: Clear to Auscultation Bilateral, NORMAL BREATHING PATTERN - Cardiovascular Exam Cardiovascular Exam: Irregular Rhythm, +S1, +S2 - GI/Abdominal Exam GI & Abdominal Exam: Normal Bowel Sounds, Soft. absent: Tenderness - Extremities Exam Extremities exam: Positive for: full ROM, normal capillary refill, normal inspection, pedal pulses present - Back Exam Back exam: NORMAL INSPECTION - Neurological Exam Neurological exam: Alert, CN II-XII Intact, Normal Gait, Oriented x3, Reflexes Normal - Psychiatric Exam Psychiatric exam: Normal Affect, Normal Mood - Skin Skin Exam: Dry, Intact, Normal Color, Warm Results - Vital Signs Recent Vital Signs: Last Vital Signs Temp 98.9 F 03/09/18 04:00 Pulse 75 03/09/18 06:00 Resp 18 03/09/18 06:00 BP 111/74 03/09/18 06:00 Pulse Ox 97 03/09/18 06:00 - Labs Result Diagrams: 03/09/18 04:50 03/09/18 04:50 Labs: Laboratory Results - last 24 hr 03/08/18 03/08/18 03/08/18 13:27 13:27 13:27 WBC 35.4 H D RBC 4.26 L Hgb 13.8 D Hct 41.4 MCV 97.2 H D MCH 32.4 H MCHC 33.3 RDW 16.7 H Plt Count 323 D MPV 7.2 Neut % (Auto) 93.6 H Lymph % (Auto) 2.5 L [place] % (Auto) 3.6 Eos % (Auto) 0.2 Baso % (Auto) 0.1 Neut # (Auto) 33.1 H Lymph # (Auto) 0.9 L [place] # (Auto) 1.3 H Eos # (Auto) 0.1 Baso # (Auto) 0.1 Neutrophils % (Manual) 93 H Lymphocytes % (Manual) 3 L Monocytes % (Manual) 3 Myelocytes % 1 H Toxic Granulation Present Platelet Estimate Normal Anisocytosis (manual) Slight PT INR APTT pCO2 pO2 HCO3 ABG pH ABG Total CO2 ABG O2 Saturation ABG Base Excess Shaan Test ABG Potassium VBG pH VBG pCO2 VBG HCO3 VBG Total CO2 VBG O2 Sat (Calc) VBG Base Excess VBG Potassium A-a O2 Difference Glucose Lactate FiO2 Sodium 132 Potassium 4.4 Chloride 97 L Carbon Dioxide 18 L Anion Gap 21 H BUN 22 H Creatinine 0.7 L Est GFR ( Amer) > 60 Est GFR (Non-Af Amer) > 60 Random Glucose 163 H Calcium 9.0 Phosphorus 3.5 Magnesium 1.7 Total Bilirubin 1.6 H AST 37 ALT 46 Alkaline Phosphatase 224 H D Troponin I 0.0130 NT-Pro-B Natriuret Pep 861 Total Protein 7.9 Albumin 3.2 L Globulin 4.7 H Albumin/Globulin Ratio 0.7 L Arterial Blood Potassium Venous Blood Potassium Urine Color Urine Clarity Urine pH Ur Specific [place] Urine Protein Urine Glucose (UA) Urine Ketones Urine Blood Urine Nitrate Urine Bilirubin Urine Urobilinogen Ur Leukocyte Esterase Urine RBC (Auto) Urine Microscopic WBC Ur Squamous Epith Cells Influenza Typ A,B (EIA) Negative for flu a/b 03/08/18 03/08/18 03/08/18 13:27 13:39 15:50 WBC RBC Hgb Hct MCV MCH MCHC RDW Plt Count MPV Neut % (Auto) Lymph % (Auto) [place] % (Auto) Eos % (Auto) Baso % (Auto) Neut # (Auto) Lymph # (Auto) [place] # (Auto) Eos # (Auto) Baso # (Auto) Neutrophils % (Manual) Lymphocytes % (Manual) Monocytes % (Manual) Myelocytes % Toxic Granulation Platelet Estimate Anisocytosis (manual) PT 16.1 H INR 1.4 H APTT 30.1 pCO2 24 L pO2 117 H HCO3 25.1 ABG pH 7.55 H ABG Total CO2 21.7 L ABG O2 Saturation 100.5 H ABG Base Excess 0.2 Shaan Test Yes ABG Potassium 3.8 VBG pH VBG pCO2 VBG HCO3 VBG Total CO2 VBG O2 Sat (Calc) VBG Base Excess VBG Potassium A-a O2 Difference 81.0 Glucose 178 H Lactate 2.7 H FiO2 32.0 Sodium 129.0 L Potassium Chloride 101.0 Carbon Dioxide Anion Gap BUN Creatinine Est GFR ( Amer) Est GFR (Non-Af Amer) Random Glucose Calcium Phosphorus Magnesium Total Bilirubin AST ALT Alkaline Phosphatase Troponin I NT-Pro-B Natriuret Pep Total Protein Albumin Globulin Albumin/Globulin Ratio Arterial Blood Potassium 3.8 Venous Blood Potassium Urine Color Yellow Urine Clarity Clear Urine pH 6.0 Ur Specific [place] > 1.060 H Urine Protein Negative Urine Glucose (UA) Neg Urine Ketones Negative Urine Blood Negative Urine Nitrate Negative Urine Bilirubin Negative Urine Urobilinogen 4.0 Ur Leukocyte Esterase Neg Urine RBC (Auto) 2 Urine Microscopic WBC 1 Ur Squamous Epith Cells < 1 Influenza Typ A,B (EIA) 03/08/18 03/09/18 03/09/18 17:26 04:50 04:50 WBC 42.1 H* RBC 3.60 L Hgb 11.6 L D Hct 35.2 MCV 97.7 H MCH 32.2 H MCHC 33.0 RDW 16.6 H Plt Count 263 MPV 7.0 L Neut % (Auto) 96.3 H Lymph % (Auto) 1.1 L [place] % (Auto) 2.1 Eos % (Auto) 0.0 Baso % (Auto) 0.5 Neut # (Auto) 40.5 H Lymph # (Auto) 0.5 L [place] # (Auto) 0.9 H Eos # (Auto) 0.0 Baso # (Auto) 0.2 Neutrophils % (Manual) Lymphocytes % (Manual) Monocytes % (Manual) Myelocytes % Toxic Granulation Platelet Estimate Anisocytosis (manual) PT INR APTT pCO2 pO2 86 H HCO3 ABG pH ABG Total CO2 ABG O2 Saturation ABG Base Excess Shaan Test ABG Potassium VBG pH 7.46 H VBG pCO2 30 L VBG HCO3 23.8 VBG Total CO2 22.2 VBG O2 Sat (Calc) 99.9 H VBG Base Excess -1.5 L VBG Potassium 4.1 A-a O2 Difference Glucose 209 H Lactate 2.2 H FiO2 21.0 Sodium 131.0 L 133 Potassium 4.4 Chloride 101.0 102 Carbon Dioxide 22 Anion Gap 13 BUN 20 Creatinine 0.5 L Est GFR ( Amer) > 60 Est GFR (Non-Af Amer) > 60 Random Glucose 127 H Calcium 8.1 L Phosphorus Magnesium Total Bilirubin 0.9 AST 25 ALT 38 Alkaline Phosphatase 182 H Troponin I NT-Pro-B Natriuret Pep Total Protein 6.4 Albumin 2.5 L D Globulin 3.9 Albumin/Globulin Ratio 0.7 L Arterial Blood Potassium Venous Blood Potassium 4.1 Urine Color Urine Clarity Urine pH Ur Specific [place] Urine Protein Urine Glucose (UA) Urine Ketones Urine Blood Urine Nitrate Urine Bilirubin Urine Urobilinogen Ur Leukocyte Esterase Urine RBC (Auto) Urine Microscopic WBC Ur Squamous Epith Cells Influenza Typ A,B (EIA) Assessment & Plan (1) Atrial flutter Assessment and Plan: cardizem gtt icu cardioivf Status: Acute (2) Dyspnea Assessment and Plan: improving, on resp tx icu care r/t tachycardia and lung ca Status: Acute (3) DVT prophylaxis Assessment and Plan: scd andae hose eliquis Status: Acute (4) Leukocytosis Assessment and Plan: heme/onc, ID consult procalcitonin Status: Acute (5) Lung cancer Assessment and Plan: heme/onc ?? need to xfer to [place] for tx Status: Acute Decision To Admit - Pt Status Changed To: Hospital Disposition Of: Inpatient - Admit Certification Admit to Inpatient:: After my assessment, the patient will require hospitalization for at least two midnights. This is because of the severity of symptoms shown, intensity of services needed, and/or the medical risk in this patient being treated as an outpatient. - . Bed Request Type: Intensive Care Admitting Physician: Karen Castro
--- NOTE | 2018-03-09 08:47 | CARD ---
APPROVED REPORT EKG Measurement Heart [id number] <Conclusion> Atrial flutter with 2:[address] abnormality, possible inferior subendocardial injury Abnormal ECG
--- NOTE | 2018-03-09 08:55 | CARD ---
APPROVED REPORT EKG Measurement Heart [id number] <Conclusion> Sinus tachycardia Possible Left atrial enlargement Borderline ECG
[2018-03-09 09:21] LABS: ANISOCYTOSIS SLIGHT; BANDS 5 % (0-2); MONOCYTE 1 % (0-10); MYELOCYTE 1 % (0-0); NEUTROPHIL 93 % (42-75); PLATELET ESTIMATE NORMAL (NORMAL); TOTAL CELLS COUNTED 100; TOXIC GRANULATION PRESENT
[2018-03-09 09:24] LABS: HYPERSEGMENTATION PRESENT
[2018-03-09] MEDS: Oxycodone/Acetaminophen 5/325 mg Tab PO PRN ×3 (09:45→21:48)
[2018-03-09] MEDS: Fluticasone-Salmeterol 250-50mcg Diskus IH SCH ×2 (09:47→21:48)
--- NOTE | 2018-03-09 10:06 | CP.PCM.CON ---
History of Present Illness - History of Present Illness History of Present Illness: 67 marianne old male with Stage IV lung cancer who presents with dyspnea. The patient has undergone radiation therapy ath [facility], and was scheduled to go today. He felt progressively dsypenic which began 3 days ago. referred for ID eval to r/o sepsis Review of Systems - Constitutional Constitutional: absent: As Per HPI, Anorexia, Chills, Daytime Sleepiness, Excessive Sweating, Fatigue, Fever, Frequent Falls, Headache, Increased Appetite , Lethargy, Malaise, Night Sweats, Snoring, Sleep Apnea, Weight Gain, Weight Loss, Weakness, Other - EENT Eyes: absent: As Per HPI, Blind Spots, Blurred Vision, Change in Vision, Decreased Night Vision, Diplopia, Discharge, Dry Eye, Exophthalmos, Floaters, Irritation, Itchy Eyes, Loss of Peripheral Vision, Pain, Photophobia, Requires Corrective Lenses, Sees Flashes, Spots in Vision, Tunnel Vision, Other Visual Disturbances, Loss of Vision, Other Ears: absent: As Per HPI, Decreased Hearing, Ear Discharge, Ear Pain, Tinnitus, Abnormal Hearing, Disequilibrium, Dizziness, Other Nose/Mouth/Throat: absent: As Per HPI, Epistaxis, Nasal Congestion, Nasal Discharge, Nasal Obstruction, Nasal Trauma, Nose Pain, Post Nasal Drip, Sinus Pain, Sinus Pressure, Bleeding Gums, Change in Voice, Dental Pain, Dry Mouth, Dysphagia, Halitosis, Hoarsness, Lip Swelling, Mouth Lesions, Mouth Pain, Odynophagia, Sore Throat, Throat Swelling, Tongue Swelling, Facial Pain, Neck Pain, Neck Mass, Other - Cardiovascular Cardiovascular: Dyspnea - Respiratory Respiratory: Dyspnea - Gastrointestinal Gastrointestinal: absent: As Per HPI, Abdominal Pain, Belching, Bloating, Change in Bowel Habits, Change in Stool Character, Coffee Ground Emesis, Constipation, Cramping, Diarrhea, Dyspepsia, Dysphagia, Early Satiety, Excessive Flatus, Fecal Incontinence, Heartburn, Hematemesis, Hematochezia, Loose Stools, Melena, Nausea, Odynophagia, Temesmus, Vomiting, Other - Genitourinary Genitourinary: absent: As Per HPI, Change in Urinary Stream, Difficulty Urinating, Dysuria, Flank Pain, Hematuria, Pyuria, Nocturia, Urinary Incontinence, Urinary Frequency, Urinary Hesitance, Urinary Urgency, Voiding Freq/Small Amts, Freq UTI, Hx Renal/Bladder Calculi, Hx /Renal Surgery, Bladder Distension, Other - Musculoskeletal Musculoskeletal: absent: As Per HPI, Abnormal Gait, Arthralgias, Atrophy, Back Pain, Deformity, Joint Swelling, Limited Range of Motion, Loss of Height, Muscle Cramps, Muscle Weakness, Myalgias, Neck Pain, Numbness, Radiating Pain into Limb, Stiffness, Tingling, Other - Integumentary Integumentary: absent: As Per HPI, Acne, Alopecia, Bleeding Lesions, Change in Hair, Change in Nails, Change in Pigmentation, Changing Lesions, Dry Skin, Erythema, Furuncle, Hirsutism, Lesions, New Lesions, Non-Healing Lesions, Photosensitivity, Pruritus, Rash, Skin Pain, Skin Ulcer, Sores, Striae, Swelling , Unusual Bruising, Wounds, Jaundice, Other - Neurological Neurological: absent: As Per HPI, Abnormal Gait, Abnormal Hearing, Abnormal Movements, Abnormal Speech, Behavioral Changes, Burning Sensations, Confusion, Convulsions, Disequilibrium, Dizziness, Numbness, Focal Weakness, Frequent Falls , Headaches, Lack of Coordination, Loss of Vision, Memory Loss, Paresthesias, Radicular Pain, Restless Legs, Sensory Deficit, Syncope, Tingling, Tremor, Vertigo, Weakness, Other Visual Disturbances, Other - Psychiatric Psychiatric: absent: As Per HPI, Abnormal Sleep Pattern, Anhedonia, Anxiety, Auditory Hallucinations, Behavioral Changes, Change in Appetite, Change in Libido, Confusion, Depression, Difficulty Concentrating, Hallucinations, Homicidal Ideation, Hopelessness, Irritability, Memory Loss, Mood Swings, Panic Attacks, Paranoia, Suicidal Ideation, Visual Hallucinations, Tactile Hallucinations, Other - Endocrine Endocrine: absent: As Per HPI, Change in Body Appearance, Change in Libido, Cold Intolorance, Deepening of Voice, Excessive Sweating, Fatigue, Flushing, Heat Intolorance, Increase in Ring/Shoe/Hat Size, Palpitations, Polydipsia, Polyphagia, Polyuria, Other - Hematologic/Lymphatic Hematologic: absent: As Per HPI, Easy Bleeding, Easy Bruising, Lymphadenopathy, Other Past Patient History - Past Medical History & Family History Past Medical History?: Yes - Past Social History Smoking Status: Former Smoker - CARDIAC Hx Cardiac Disorders: No - PULMONARY Hx Pneumonia: Yes - NEUROLOGICAL Hx Neurological Disorder: No - HEENT Hx HEENT Problems: No - RENAL Hx Chronic Kidney Disease: No - ENDOCRINE/METABOLIC Hx Endocrine Disorders: No - HEMATOLOGICAL/ONCOLOGICAL Hx Blood Disorders: No - INTEGUMENTARY Hx Dermatological Problems: No - MUSCULOSKELETAL/RHEUMATOLOGICAL Hx Musculoskeletal Disorders: No Hx Falls: Yes - GENITOURINARY/GYNECOLOGICAL Hx Genitourinary Disorders: No - PSYCHIATRIC Hx Psychophysiologic Disorder: No Hx Substance Use: No - SURGICAL HISTORY Hx Surgeries: Yes Other/Comment: Polyps removed from throat. - ANESTHESIA Hx Anesthesia: Yes Hx Anesthesia Reactions: No Hx Malignant Hyperthermia: No Meds Allergies/Adverse Reactions: Allergies Allergy/AdvReac Type Severity Reaction Status Date / Time No Known Allergies Allergy Verified 03/08/18 12:55 - Medications Medications: Current Medications Albuterol/Ipratropium (Duoneb 3 Mg/0.5 Mg (3 Ml) Ud) 3 ml INH RTID [facility] Last Admin: 03/09/18 07:34 Dose: 3 ml Apixaban (Eliquis) 2.5 mg PO Q12 [facility] PRN Reason: Protocol Last Admin: 03/09/18 09:47 Dose: 2.5 mg Fentanyl (Duragesic) 1 patch TD Q72H [facility] PRN Reason: Protocol Last Admin: 03/08/18 16:56 Dose: 1 patch Potassium Chloride/Dextrose/Sod Cl (Potassium Chl 20 Meq In D5-Ns) 1,000 mls @ 50 mls/hr IV .Q20H [facility] Stop: 03/09/18 17:19 Last Admin: 03/08/18 18:10 Dose: 50 mls/hr Metoprolol Tartrate (Lopressor) 25 mg PO Q12 [facility] Last Admin: 03/09/18 09:49 Dose: 25 mg Morphine Sulfate (Morphine) 2 mg IVP Q6 PRN PRN Reason: Pain, moderate (4-7) Nicotine (Nicoderm Cq) 1 patch TD DAILY [facility] Last Admin: 03/09/18 09:48 Dose: 1 patch Oxycodone/Acetaminophen (Percocet 5/325 Mg Tab) 1 tab PO Q8 PRN PRN Reason: Pain, severe (8-10) Stop: 03/11/18 16:04 Last Admin: 03/09/18 09:45 Dose: 1 tab Fluticasone/Salmeterol (Advair Diskus 250/50) 1 puff IH Q12 [facility] Last Admin: 03/09/18 09:47 Dose: 1 puff Physical Exam - Constitutional Appears: Chronically Ill - Head Exam Head Exam: ATRAUMATIC - Eye Exam Eye Exam: absent: Scleral icterus - ENT Exam ENT Exam: Mucous Membranes Dry - Neck Exam Neck exam: Negative for: Lymphadenopathy - Respiratory Exam Respiratory Exam: Decreased Breath Sounds - Cardiovascular Exam Cardiovascular Exam: REGULAR RHYTHM - GI/Abdominal Exam GI & Abdominal Exam: Diminished Bowel Sounds, Soft. absent: Tenderness - Rectal Exam Rectal Exam: Deferred - Exam Exam: NORMAL INSPECTION - Extremities Exam Extremities exam: Negative for: pedal edema - Back Exam Back exam: absent: CVA tenderness (L), CVA tenderness (R) - Neurological Exam Neurological exam: Alert, CN II-XII Intact, Oriented x3, Reflexes Normal - Psychiatric Exam Psychiatric exam: Normal Mood - Skin Skin Exam: Dry Results - Vital Signs Recent Vital Signs: Last Vital Signs Temp 98.2 F 03/09/18 08:00 Pulse 84 03/09/18 09:49 Resp 16 03/09/18 08:00 BP 117/66 03/09/18 09:49 Pulse Ox 98 03/09/18 08:00 - Labs Result Diagrams: 03/09/18 04:50 03/09/18 04:50 Labs: Laboratory Results - last 24 hr 03/08/18 03/08/18 03/08/18 13:27 13:27 13:27 WBC 35.4 H D RBC 4.26 L Hgb 13.8 D Hct 41.4 MCV 97.2 H D MCH 32.4 H MCHC 33.3 RDW 16.7 H Plt Count 323 D MPV 7.2 Neut % (Auto) 93.6 H Lymph % (Auto) 2.5 L [place] % (Auto) 3.6 Eos % (Auto) 0.2 Baso % (Auto) 0.1 Neut # (Auto) 33.1 H Lymph # (Auto) 0.9 L [place] # (Auto) 1.3 H Eos # (Auto) 0.1 Baso # (Auto) 0.1 Neutrophils % (Manual) 93 H Band Neutrophils % Lymphocytes % (Manual) 3 L Monocytes % (Manual) 3 Myelocytes % 1 H Hypersegmented Polys Toxic Granulation Present Platelet Estimate Normal Anisocytosis (manual) Slight PT INR APTT pCO2 pO2 HCO3 ABG pH ABG Total CO2 ABG O2 Saturation ABG Base Excess Shaan Test ABG Potassium VBG pH VBG pCO2 VBG HCO3 VBG Total CO2 VBG O2 Sat (Calc) VBG Base Excess VBG Potassium A-a O2 Difference Glucose Lactate FiO2 Sodium 132 Potassium 4.4 Chloride 97 L Carbon Dioxide 18 L Anion Gap 21 H BUN 22 H Creatinine 0.7 L Est GFR ( Amer) > 60 Est GFR (Non-Af Amer) > 60 Random Glucose 163 H Calcium 9.0 Phosphorus 3.5 Magnesium 1.7 Total Bilirubin 1.6 H AST 37 ALT 46 Alkaline Phosphatase 224 H D Troponin I 0.0130 NT-Pro-B Natriuret Pep 861 Total Protein 7.9 Albumin 3.2 L Globulin 4.7 H Albumin/Globulin Ratio 0.7 L Arterial Blood Potassium Venous Blood Potassium Urine Color Urine Clarity Urine pH Ur Specific [place] Urine Protein Urine Glucose (UA) Urine Ketones Urine Blood Urine Nitrate Urine Bilirubin Urine Urobilinogen Ur Leukocyte Esterase Urine RBC (Auto) Urine Microscopic WBC Ur Squamous Epith Cells Influenza Typ A,B (EIA) Negative for flu a/b 03/08/18 03/08/18 03/08/18 13:27 13:39 15:50 WBC RBC Hgb Hct MCV MCH MCHC RDW Plt Count MPV Neut % (Auto) Lymph % (Auto) [place] % (Auto) Eos % (Auto) Baso % (Auto) Neut # (Auto) Lymph # (Auto) [place] # (Auto) Eos # (Auto) Baso # (Auto) Neutrophils % (Manual) Band Neutrophils % Lymphocytes % (Manual) Monocytes % (Manual) Myelocytes % Hypersegmented Polys Toxic Granulation Platelet Estimate Anisocytosis (manual) PT 16.1 H INR 1.4 H APTT 30.1 pCO2 24 L pO2 117 H HCO3 25.1 ABG pH 7.55 H ABG Total CO2 21.7 L ABG O2 Saturation 100.5 H ABG Base Excess 0.2 Shaan Test Yes ABG Potassium 3.8 VBG pH VBG pCO2 VBG HCO3 VBG Total CO2 VBG O2 Sat (Calc) VBG Base Excess VBG Potassium A-a O2 Difference 81.0 Glucose 178 H Lactate 2.7 H FiO2 32.0 Sodium 129.0 L Potassium Chloride 101.0 Carbon Dioxide Anion Gap BUN Creatinine Est GFR ( Amer) Est GFR (Non-Af Amer) Random Glucose Calcium Phosphorus Magnesium Total Bilirubin AST ALT Alkaline Phosphatase Troponin I NT-Pro-B Natriuret Pep Total Protein Albumin Globulin Albumin/Globulin Ratio Arterial Blood Potassium 3.8 Venous Blood Potassium Urine Color Yellow Urine Clarity Clear Urine pH 6.0 Ur Specific [place] > 1.060 H Urine Protein Negative Urine Glucose (UA) Neg Urine Ketones Negative Urine Blood Negative Urine Nitrate Negative Urine Bilirubin Negative Urine Urobilinogen 4.0 Ur Leukocyte Esterase Neg Urine RBC (Auto) 2 Urine Microscopic WBC 1 Ur Squamous Epith Cells < 1 Influenza Typ A,B (EIA) 03/08/18 03/09/18 03/09/18 17:26 04:50 04:50 WBC 42.1 H* RBC 3.60 L Hgb 11.6 L D Hct 35.2 MCV 97.7 H MCH 32.2 H MCHC 33.0 RDW 16.6 H Plt Count 263 MPV 7.0 L Neut % (Auto) 96.3 H Lymph % (Auto) 1.1 L [place] % (Auto) 2.1 Eos % (Auto) 0.0 Baso % (Auto) 0.5 Neut # (Auto) 40.5 H Lymph # (Auto) 0.5 L [place] # (Auto) 0.9 H Eos # (Auto) 0.0 Baso # (Auto) 0.2 Neutrophils % (Manual) 93 H Band Neutrophils % 5 H Lymphocytes % (Manual) Monocytes % (Manual) 1 Myelocytes % 1 H Hypersegmented Polys Present Toxic Granulation Present Platelet Estimate Normal Anisocytosis (manual) Slight PT INR APTT pCO2 pO2 86 H HCO3 ABG pH ABG Total CO2 ABG O2 Saturation ABG Base Excess Shaan Test ABG Potassium VBG pH 7.46 H VBG pCO2 30 L VBG HCO3 23.8 VBG Total CO2 22.2 VBG O2 Sat (Calc) 99.9 H VBG Base Excess -1.5 L VBG Potassium 4.1 A-a O2 Difference Glucose 209 H Lactate 2.2 H FiO2 21.0 Sodium 131.0 L 133 Potassium 4.4 Chloride 101.0 102 Carbon Dioxide 22 Anion Gap 13 BUN 20 Creatinine 0.5 L Est GFR ( Amer) > 60 Est GFR (Non-Af Amer) > 60 Random Glucose 127 H Calcium 8.1 L Phosphorus Magnesium Total Bilirubin 0.9 AST 25 ALT 38 Alkaline Phosphatase 182 H Troponin I NT-Pro-B Natriuret Pep Total Protein 6.4 Albumin 2.5 L D Globulin 3.9 Albumin/Globulin Ratio 0.7 L Arterial Blood Potassium Venous Blood Potassium 4.1 Urine Color Urine Clarity Urine pH Ur Specific [place] Urine Protein Urine Glucose (UA) Urine Ketones Urine Blood Urine Nitrate Urine Bilirubin Urine Urobilinogen Ur Leukocyte Esterase Urine RBC (Auto) Urine Microscopic WBC Ur Squamous Epith Cells Influenza Typ A,B (EIA) Assessment & Plan (1) Leukocytosis (leucocytosis) Status: Acute (2) Atrial flutter Status: Acute (3) Dyspnea Status: Acute (4) Metastatic cancer Status: Acute - Assessment and Plan (Free Text) Assessment: will check cultures cont iv antibiotics will follow
[2018-03-09 11:41] LABS: LYMPHOCYTE 0 % (20-50)
--- NOTE | 2018-03-09 12:09 | CP.PCM.CON ---
History of Present Illness - History of Present Illness History of Present Illness: 67 year old male with a history of former tobacco abuse, stage IV malignancy being treated at [place], admitted with pepe. The patient is known to me from his prior admission from last month where he was found to have radiographic evidence of malignancy, including brain metastasis. Since then, her reports to radiation treatments at [place] and is scheduled for chemotherapy. He notes to improvement in his symptoms since coming to the hospital. His breathing is improved and denies chest pain. 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 Allergies: NKA Review of systems: All remaining review of systems including HEENT, cardiovascular, respiratory, gastrointestinal, genitourinary, musculoskeletal, dermatologic, neurologic, and psychiatric are negative unless mentioned in the HPI. Past Patient History - Past Medical History & Family History Past Medical History?: Yes - Past Social History Smoking Status: Former Smoker - CARDIAC Hx Cardiac Disorders: No - PULMONARY Hx Pneumonia: Yes - NEUROLOGICAL Hx Neurological Disorder: No - HEENT Hx HEENT Problems: No - RENAL Hx Chronic Kidney Disease: No - ENDOCRINE/METABOLIC Hx Endocrine Disorders: No - HEMATOLOGICAL/ONCOLOGICAL Hx Blood Disorders: No - INTEGUMENTARY Hx Dermatological Problems: No - MUSCULOSKELETAL/RHEUMATOLOGICAL Hx Musculoskeletal Disorders: No Hx Falls: Yes - GENITOURINARY/GYNECOLOGICAL Hx Genitourinary Disorders: No - PSYCHIATRIC Hx Psychophysiologic Disorder: No Hx Substance Use: No - SURGICAL HISTORY Hx Surgeries: Yes Other/Comment: Polyps removed from throat. - ANESTHESIA Hx Anesthesia: Yes Hx Anesthesia Reactions: No Hx Malignant Hyperthermia: No Meds Allergies/Adverse Reactions: Allergies Allergy/AdvReac Type Severity Reaction Status Date / Time No Known Allergies Allergy Verified 03/08/18 12:55 - Medications Medications: Current Medications Albuterol/Ipratropium (Duoneb 3 Mg/0.5 Mg (3 Ml) Ud) 3 ml INH RTID [facility] Last Admin: 03/09/18 07:34 Dose: 3 ml Apixaban (Eliquis) 2.5 mg PO Q12 [facility] PRN Reason: Protocol Last Admin: 03/09/18 09:47 Dose: 2.5 mg Fentanyl (Duragesic) 1 patch TD Q72H [facility] PRN Reason: Protocol Last Admin: 03/08/18 16:56 Dose: 1 patch Potassium Chloride/Dextrose/Sod Cl (Potassium Chl 20 Meq In D5-Ns) 1,000 mls @ 50 mls/hr IV .Q20H [facility] Stop: 03/09/18 17:19 Last Admin: 03/08/18 18:10 Dose: 50 mls/hr Ceftriaxone Sodium 2 gm/ (Sodium Chloride) 100 mls @ 100 mls/hr IVPB DAILY [facility] PRN Reason: Protocol Metoprolol Tartrate (Lopressor) 25 mg PO Q12 [facility] Last Admin: 03/09/18 09:49 Dose: 25 mg Morphine Sulfate (Morphine) 2 mg IVP Q6 PRN PRN Reason: Pain, moderate (4-7) Nicotine (Nicoderm Cq) 1 patch TD DAILY [facility] Last Admin: 03/09/18 09:48 Dose: 1 patch Oxycodone/Acetaminophen (Percocet 5/325 Mg Tab) 1 tab PO Q8 PRN PRN Reason: Pain, severe (8-10) Stop: 03/11/18 16:04 Last Admin: 03/09/18 09:45 Dose: 1 tab Fluticasone/Salmeterol (Advair Diskus 250/50) 1 puff IH Q12 [facility] Last Admin: 03/09/18 09:47 Dose: 1 puff Physical Exam - Head Exam Head Exam: ATRAUMATIC - Eye Exam Eye Exam: Normal appearance - ENT Exam ENT Exam: Mucous Membranes Dry - Respiratory Exam Respiratory Exam: NORMAL BREATHING PATTERN - Cardiovascular Exam Cardiovascular Exam: +S1, +S2 - GI/Abdominal Exam GI & Abdominal Exam: Normal Bowel Sounds - Extremities Exam Extremities exam: Positive for: normal inspection Results - Vital Signs Recent Vital Signs: Last Vital Signs Temp 98.2 F 03/09/18 08:00 Pulse 84 03/09/18 09:49 Resp 16 03/09/18 08:00 BP 117/66 03/09/18 09:49 Pulse Ox 98 03/09/18 08:00 - Labs Result Diagrams: 03/09/18 04:50 03/09/18 04:50 Labs: Laboratory Results - last 24 hr 03/08/18 03/08/18 03/08/18 13:27 13:27 13:27 WBC 35.4 H D RBC 4.26 L Hgb 13.8 D Hct 41.4 MCV 97.2 H D MCH 32.4 H MCHC 33.3 RDW 16.7 H Plt Count 323 D MPV 7.2 Neut % (Auto) 93.6 H Lymph % (Auto) 2.5 L Louisa % (Auto) 3.6 Eos % (Auto) 0.2 Baso % (Auto) 0.1 Neut # (Auto) 33.1 H Lymph # (Auto) 0.9 L Louisa # (Auto) 1.3 H Eos # (Auto) 0.1 Baso # (Auto) 0.1 Neutrophils % (Manual) 93 H Band Neutrophils % Lymphocytes % (Manual) 3 L Monocytes % (Manual) 3 Myelocytes % 1 H Hypersegmented Polys Toxic Granulation Present Platelet Estimate Normal Anisocytosis (manual) Slight PT INR APTT pCO2 pO2 HCO3 ABG pH ABG Total CO2 ABG O2 Saturation ABG Base Excess Shaan Test ABG Potassium VBG pH VBG pCO2 VBG HCO3 VBG Total CO2 VBG O2 Sat (Calc) VBG Base Excess VBG Potassium A-a O2 Difference Glucose Lactate FiO2 Sodium 132 Potassium 4.4 Chloride 97 L Carbon Dioxide 18 L Anion Gap 21 H BUN 22 H Creatinine 0.7 L Est GFR ( Amer) > 60 Est GFR (Non-Af Amer) > 60 Random Glucose 163 H Calcium 9.0 Phosphorus 3.5 Magnesium 1.7 Total Bilirubin 1.6 H AST 37 ALT 46 Alkaline Phosphatase 224 H D Troponin I 0.0130 NT-Pro-B Natriuret Pep 861 Total Protein 7.9 Albumin 3.2 L Globulin 4.7 H Albumin/Globulin Ratio 0.7 L Arterial Blood Potassium Venous Blood Potassium Urine Color Urine Clarity Urine pH Ur Specific Carlton Urine Protein Urine Glucose (UA) Urine Ketones Urine Blood Urine Nitrate Urine Bilirubin Urine Urobilinogen Ur Leukocyte Esterase Urine RBC (Auto) Urine Microscopic WBC Ur Squamous Epith Cells Influenza Typ A,B (EIA) Negative for flu a/b 03/08/18 03/08/18 03/08/18 13:27 13:39 15:50 WBC RBC Hgb Hct MCV MCH MCHC RDW Plt Count MPV Neut % (Auto) Lymph % (Auto) Louisa % (Auto) Eos % (Auto) Baso % (Auto) Neut # (Auto) Lymph # (Auto) Louisa # (Auto) Eos # (Auto) Baso # (Auto) Neutrophils % (Manual) Band Neutrophils % Lymphocytes % (Manual) Monocytes % (Manual) Myelocytes % Hypersegmented Polys Toxic Granulation Platelet Estimate Anisocytosis (manual) PT 16.1 H INR 1.4 H APTT 30.1 pCO2 24 L pO2 117 H HCO3 25.1 ABG pH 7.55 H ABG Total CO2 21.7 L ABG O2 Saturation 100.5 H ABG Base Excess 0.2 Shaan Test Yes ABG Potassium 3.8 VBG pH VBG pCO2 VBG HCO3 VBG Total CO2 VBG O2 Sat (Calc) VBG Base Excess VBG Potassium A-a O2 Difference 81.0 Glucose 178 H Lactate 2.7 H FiO2 32.0 Sodium 129.0 L Potassium Chloride 101.0 Carbon Dioxide Anion Gap BUN Creatinine Est GFR ( Amer) Est GFR (Non-Af Amer) Random Glucose Calcium Phosphorus Magnesium Total Bilirubin AST ALT Alkaline Phosphatase Troponin I NT-Pro-B Natriuret Pep Total Protein Albumin Globulin Albumin/Globulin Ratio Arterial Blood Potassium 3.8 Venous Blood Potassium Urine Color Yellow Urine Clarity Clear Urine pH 6.0 Ur Specific Carlton > 1.060 H Urine Protein Negative Urine Glucose (UA) Neg Urine Ketones Negative Urine Blood Negative Urine Nitrate Negative Urine Bilirubin Negative Urine Urobilinogen 4.0 Ur Leukocyte Esterase Neg Urine RBC (Auto) 2 Urine Microscopic WBC 1 Ur Squamous Epith Cells < 1 Influenza Typ A,B (EIA) 03/08/18 03/09/18 03/09/18 17:26 04:50 04:50 WBC 42.1 H* RBC 3.60 L Hgb 11.6 L D Hct 35.2 MCV 97.7 H MCH 32.2 H MCHC 33.0 RDW 16.6 H Plt Count 263 MPV 7.0 L Neut % (Auto) 96.3 H Lymph % (Auto) 1.1 L Louisa % (Auto) 2.1 Eos % (Auto) 0.0 Baso % (Auto) 0.5 Neut # (Auto) 40.5 H Lymph # (Auto) 0.5 L Louisa # (Auto) 0.9 H Eos # (Auto) 0.0 Baso # (Auto) 0.2 Neutrophils % (Manual) 93 H Band Neutrophils % 5 H Lymphocytes % (Manual) 0 L Monocytes % (Manual) 1 Myelocytes % 1 H Hypersegmented Polys Present Toxic Granulation Present Platelet Estimate Normal Anisocytosis (manual) Slight PT INR APTT pCO2 pO2 86 H HCO3 ABG pH ABG Total CO2 ABG O2 Saturation ABG Base Excess Shaan Test ABG Potassium VBG pH 7.46 H VBG pCO2 30 L VBG HCO3 23.8 VBG Total CO2 22.2 VBG O2 Sat (Calc) 99.9 H VBG Base Excess -1.5 L VBG Potassium 4.1 A-a O2 Difference Glucose 209 H Lactate 2.2 H FiO2 21.0 Sodium 131.0 L 133 Potassium 4.4 Chloride 101.0 102 Carbon Dioxide 22 Anion Gap 13 BUN 20 Creatinine 0.5 L Est GFR ( Amer) > 60 Est GFR (Non-Af Amer) > 60 Random Glucose 127 H Calcium 8.1 L Phosphorus Magnesium Total Bilirubin 0.9 AST 25 ALT 38 Alkaline Phosphatase 182 H Troponin I NT-Pro-B Natriuret Pep Total Protein 6.4 Albumin 2.5 L D Globulin 3.9 Albumin/Globulin Ratio 0.7 L Arterial Blood Potassium Venous Blood Potassium 4.1 Urine Color Urine Clarity Urine pH Ur Specific Carlton Urine Protein Urine Glucose (UA) Urine Ketones Urine Blood Urine Nitrate Urine Bilirubin Urine Urobilinogen Ur Leukocyte Esterase Urine RBC (Auto) Urine Microscopic WBC Ur Squamous Epith Cells Influenza Typ A,B (EIA) Assessment & Plan (1) Leukocytosis (leucocytosis) Assessment and Plan: afebrile ? recent steroids likely reactive on empiric antibiotics Status: Acute (2) Anemia Assessment and Plan: likely anemia of chronic disease Status: Acute (3) Metastatic cancer Assessment and Plan: brain, lymph node, lung, kidney, bone involvement ? biopsy at [place] appears to be on palliative radiotherapy to symptomatic bone lesions outpatient treatment per primary oncologist. Thank you for this interesting consult. Status: Acute
[2018-03-09] MEDS: cefTRIAXone 2 GM in Sodium Chloride 0.9% 100 ML IVPB SCH (13:13)
[2018-03-09] MEDS: Potassium Chl 20 mEq in D5-NS 1,000 ML IV SCH (16:47)
--- NOTE | 2018-03-09 19:39 | CP.PCM.PN ---
Subjective - Date & Time of Evaluation Date of Evaluation: 03/09/18 Time of Evaluation: 19:30 - Subjective Subjective: Patient has no current chest pain or dyspnea Objective - Vital Signs/Intake and Output Vital Signs (last 24 hours): Temp Pulse Resp BP Pulse Ox 97.6 F 96 H 22 126/93 H 96 03/09/18 16:00 03/09/18 18:00 03/09/18 18:00 03/09/18 18:00 03/09/18 18:00 Intake and Output: 03/09/18 03/10/18 18:59 06:59 Intake Total 350 Output Total 950 Balance -600 - Medications Medications: Current Medications Albuterol/Ipratropium (Duoneb 3 Mg/0.5 Mg (3 Ml) Ud) 3 ml INH RTID [facility] Last Admin: 03/09/18 19:12 Dose: 3 ml Apixaban (Eliquis) 2.5 mg PO Q12 [facility] PRN Reason: Protocol Last Admin: 03/09/18 09:47 Dose: 2.5 mg Fentanyl (Duragesic) 1 patch TD Q72H [facility] PRN Reason: Protocol Last Admin: 03/08/18 16:56 Dose: 1 patch Ceftriaxone Sodium 2 gm/ (Sodium Chloride) 100 mls @ 100 mls/hr IVPB DAILY [facility] PRN Reason: Protocol Last Admin: 03/09/18 13:13 Dose: 100 mls/hr Metoprolol Tartrate (Lopressor) 25 mg PO Q12 [facility] Last Admin: 03/09/18 09:49 Dose: 25 mg Morphine Sulfate (Morphine) 2 mg IVP Q6 PRN PRN Reason: Pain, moderate (4-7) Nicotine (Nicoderm Cq) 1 patch TD DAILY [facility] Last Admin: 03/09/18 09:48 Dose: 1 patch Oxycodone/Acetaminophen (Percocet 5/325 Mg Tab) 1 tab PO Q8 PRN PRN Reason: Pain, severe (8-10) Stop: 03/11/18 16:04 Last Admin: 03/09/18 17:30 Dose: 1 tab Fluticasone/Salmeterol (Advair Diskus 250/50) 1 puff IH Q12 [facility] Last Admin: 03/09/18 09:47 Dose: 1 puff - Labs Labs: 03/09/18 04:50 03/09/18 04:50 PT 16.1 Seconds (9.8-13.1) H 03/08/18 13:27 INR 1.4 (0.9-1.2) H 03/08/18 13:27 APTT 30.1 Seconds (25.6-37.1) 03/08/18 13:27 - Constitutional Appears: Non-toxic - Head Exam Head Exam: NORMAL INSPECTION - Eye Exam Eye Exam: Normal appearance - ENT Exam ENT Exam: Mucous Membranes Moist - Neck Exam Neck Exam: absent: Lymphadenopathy - Respiratory Exam Respiratory Exam: Decreased Breath Sounds - Cardiovascular Exam Cardiovascular Exam: REGULAR RHYTHM - GI/Abdominal Exam GI & Abdominal Exam: Normal Bowel Sounds - Rectal Exam Rectal Exam: Deferred - Extremities Exam Extremities Exam: absent: Pedal Edema - Back Exam Back Exam: NORMAL INSPECTION - Neurological Exam Neurological Exam: Alert - Psychiatric Exam Psychiatric exam: Normal Affect - Skin Skin Exam: Normal Color Assessment and Plan (1) Atrial flutter Assessment & Plan: currently in sinus rhythm. recommend continued betablocker therapy. maintain anticoagulation. Status: Acute
[2018-03-09] MEDS ORDERED: Sodium Chloride 3% for Inhalation 4 ML VIAL.NEB IH PRN (21:00)
--- NOTE | 2018-03-10 01:39 | PN ---
DATE: 03/09/2018 CRITICAL CARE PROGRESS NOTE LOCATION: The patient in ICU, bed 426. TIME SPENT: 35 minutes. SUBJECTIVE: The patient is seen and examined at the bedside. Past medical, surgical, social, and family history reviewed. A 67-year-old male, reformed smoker with chronic obstructive pulmonary disease, stage IV metastatic lung cancer; metastatic to brain, chest wall, elbow, hip, currently undergoing radiation treatment at [facility], admitted with increasing shortness of breath associated with mild dry cough, noted to be in SVT/atrial flutter with hypotension, improved after IV hydration. Overnight normotensive, afebrile. Telemetry sinus rhythm. Tolerating p.o. feeds, noted to have reduced appetite. PHYSICAL EXAMINATION: GENERAL: This morning alert, awake, follows commands, appropriate. VITAL SIGNS: Temperature 98.6, heart rate of 73 and regular, blood pressure 117/66, oxygen saturation 99%. Intake 1840, output 450. Positive balance 1390 HEENT: Examination of head, eyes, ears, nose and throat: Pupils are reactive. Conjunctivae pink. Sclerae are white. NECK: Supple. Trachea is central. CHEST: Bilateral breath sounds. Clear to auscultation. HEART: Rhythm regular. S1, S2 normal. No audible murmur. ABDOMEN: Bowel sounds present. Soft. Liver and spleen not palpable. Bladder not distended. EXTREMITIES: No edema. NEUROLOGIC: No cranial nerve deficit. No motor or sensory impairment, plantar flexor. Deep tendon reflex 2+. SKIN: Without rash. MEDICATIONS: Current medications include albuterol/Atrovent inhalation every 8 hours, Eliquis 2.5 mg every 12 hours, ceftriaxone 2 gm IV daily, Duragesic patch every 72 hours, Lopressor 25 mg p.o. every 12 hours, morphine 2 mg IV every 6 hours p.r.n. for moderate pain, nicotine patch 14 mg daily, Percocet 5/325 mg one tablet every 8 hours, D5 normal with 20 mEq KCl at 50 mL per hour, Advair 1 puff every 12 hours. LABORATORY DATA: WBC 42.1, hemoglobin 11.6, hematocrit 35.2, platelet count 263, neutrophils 96.3, lymphocytes 1.1, monocytes 2.1. PT 16.1, INR 1.4, PTT 30.1. ABG, pH 7.46, pCO2 of 30, bicarbonate 23.8, potassium of 4.1, lactate 2.2. SMA-7 sodium 133, potassium 4.4, chloride of 102, CO2 of 22, blood urea nitrogen 20, creatinine 0.5, calcium 8.1, random glucose 127, total bilirubin 0.9, AST 25, ALT 38, alkaline phosphatase 182, total protein 6.4, albumin 2.5. Urinalysis negative. Serology, influenza A and B negative. Microbiology: Urine culture, no growth reported. Chest x-ray_ hilar adenopathy and possibly tumor burden in the left suprahilar region, residual limited airspace disease at the left base, no right-sided infiltrate. No pleural effusion or pneumothorax. CT chest done on 03/08/2018 shows multiple skeletal metastasis, some of which associated with adjacent soft tissue tumor components as above. In addition, patchy amount of mediastinal and left hilar adenopathy, compression of the left main pulmonary artery. Multiple upper abdominal wall branch vessels, relatively large area of consolidation in the left upper lobe, related to atelectasis and possibly in part related to the compressive part of the distal pulmonary artery branch vessels. IMPRESSION AND PLAN: 1. Neurologic: Alert, awake, and oriented to name, place and time. Neuro imaging showed metastasis to brain and being multiple. Awaiting for radiation at [facility]. 2. Pulmonary: Metastatic lung carcinoma stage IV metastasis to the brain, skeletal, and to liver, currently undergoing radiation at [facility]. 3. Cardiac: Supraventricular tachycardia/atrial flutter, rate controlled, on beta jes 25 mg twice daily, Eliquis 2.5 mg every 12 hours. Normotensive. 4. Hematology: Leukocytosis without fever, probably related to radiation induced necrosis of the mediastinal hilar lymphadenopathy as well as to the skeletal metastasis, empirically on ceftriaxone. Appreciate ID input. 5. Renal: Hyponatremia. Normal BUN and creatinine. Total bilirubin reduced. AST and ALT within normal limits. Hypoalbuminemia, increase p.o. intake. 6. Endocrine: No acute abnormalities. Maintain blood sugar below 180. 7. Skin: Without any damage. 8. Prognosis remains guarded given the advanced lung carcinoma, status post colonoscopy reportedly negative. Continue supportive care. Appreciate oncology followup. Once the patient becomes less short of breath, may be discharge and follow with chemo and radiation at [facility]. Tu Pal MD [facility] # [id number] FIGUEROA
[2018-03-10] MEDS: Oxycodone/Acetaminophen 5/325 mg Tab PO PRN ×4 (01:47→18:53)
[2018-03-10 05:33] LABS: BASO # 0.1 K/uL (0.0-0.2); BASO % 0.2 % (0.0-2.0); EOS # 0.1 K/uL (0.0-0.7); EOS % 0.2 % (0.0-4.0); HEMOGLOBIN 11.4 g/dL (12.0-18.0); LYMPH # 0.6 K/uL (1.0-4.3); LYMPH % 1.7 % (20.0-40.0); MEAN CORPUSCULAR HEMOGLOBIN 34.3 pg (27.0-31.0); MONO # 1.4 K/uL (0.0-0.8); MONO % 4.4 % (0.0-10.0); NEUT # 30.4 K/uL (1.8-7.0); NEUT % 93.5 % (50.0-75.0); RBC 3.31 Mil/uL (4.40-5.90); RED CELL DISTRIBUTION WIDTH 16.2 % (11.5-14.5); WHITE BLOOD COUNT 32.5 K/uL (4.8-10.8)
[2018-03-10 06:17] LABS: ALB/GLOB RATIO 0.7 (1.0-2.1); ALBUMIN 2.6 g/dL (3.5-5.0); ALT/SGPT 63 U/L (21-72); AST/SGOT 39 U/L (17-59); BLOOD UREA NITROGEN 15 mg/dl (9-20); CALCIUM 8.3 mg/dL (8.4-10.2); GFR AFRICAN-AMERICAN > 60; GFR NON-AFRICAN AMERICAN > 60
--- NOTE | 2018-03-10 08:04 | CP.PCM.PN ---
Subjective - Date & Time of Evaluation Date of Evaluation: 03/10/18 Time of Evaluation: 08:04 - Subjective Subjective: doing well. no f/c, n/v/d. tachy and irregular on monitor at present. per rn until he got up for am care he was 70-80 and sinus. off cardizem gtt. no complaints still wheezing in all zazueta. all bw, imaging and consults appriciated Objective - Vital Signs/Intake and Output Vital Signs (last 24 hours): Temp Pulse Resp BP Pulse Ox 99.0 F 94 H 17 93/64 L 98 03/10/18 04:00 03/10/18 06:00 03/10/18 06:00 03/10/18 06:00 03/10/18 06:00 Intake and Output: 03/10/18 03/10/18 06:59 18:59 Intake Total 50 Output Total 425 Balance -375 - Medications Medications: Current Medications Albuterol/Ipratropium (Duoneb 3 Mg/0.5 Mg (3 Ml) Ud) 3 ml INH RTID [facility] Last Admin: 03/09/18 19:12 Dose: 3 ml Apixaban (Eliquis) 2.5 mg PO Q12 [facility] PRN Reason: Protocol Last Admin: 03/09/18 21:47 Dose: 2.5 mg Fentanyl (Duragesic) 1 patch TD Q72H [facility] PRN Reason: Protocol Last Admin: 03/08/18 16:56 Dose: 1 patch Ceftriaxone Sodium 2 gm/ (Sodium Chloride) 100 mls @ 100 mls/hr IVPB DAILY [facility] PRN Reason: Protocol Last Admin: 03/09/18 13:13 Dose: 100 mls/hr Metoprolol Tartrate (Lopressor) 25 mg PO Q12 [facility] Last Admin: 03/09/18 21:47 Dose: 25 mg Morphine Sulfate (Morphine) 2 mg IVP Q6 PRN PRN Reason: Pain, moderate (4-7) Nicotine (Nicoderm Cq) 1 patch TD DAILY [facility] Last Admin: 03/09/18 09:48 Dose: 1 patch Oxycodone/Acetaminophen (Percocet 5/325 Mg Tab) 1 tab PO Q4 PRN PRN Reason: Pain, severe (8-10) Stop: 03/12/18 21:01 Last Admin: 03/10/18 06:16 Dose: 1 tab Fluticasone/Salmeterol (Advair Diskus 250/50) 1 puff IH Q12 [facility] Last Admin: 03/09/18 21:48 Dose: 1 puff - Labs Labs: 03/10/18 04:20 03/10/18 04:20 PT 16.1 Seconds (9.8-13.1) H 03/08/18 13:27 INR 1.4 (0.9-1.2) H 03/08/18 13:27 APTT 30.1 Seconds (25.6-37.1) 03/08/18 13:27 - Constitutional Appears: Well, Non-toxic, No Acute Distress - Head Exam Head Exam: ATRAUMATIC, NORMAL INSPECTION, NORMOCEPHALIC - Eye Exam Eye Exam: EOMI, Normal appearance, PERRL Pupil Exam: NORMAL ACCOMODATION, PERRL - ENT Exam ENT Exam: Mucous Membranes Moist, Normal Exam - Neck Exam Neck Exam: Full ROM, Normal Inspection. absent: Lymphadenopathy - Respiratory Exam Respiratory Exam: Wheezes, NORMAL BREATHING PATTERN - Cardiovascular Exam Cardiovascular Exam: Tachycardia, Irregular Rhythm, +S1, +S2. absent: Murmur - GI/Abdominal Exam GI & Abdominal Exam: Soft, Normal Bowel Sounds. absent: Tenderness - Extremities Exam Extremities Exam: Full ROM, Normal Capillary Refill, Normal Inspection. absent : Joint Swelling, Pedal Edema - Back Exam Back Exam: NORMAL INSPECTION - Neurological Exam Neurological Exam: Alert, Awake, CN II-XII Intact, Normal Gait, Oriented x3 - Psychiatric Exam Psychiatric exam: Normal Affect, Normal Mood - Skin Skin Exam: Dry, Intact, Normal Color, Warm Assessment and Plan (1) Atrial flutter Status: Acute (2) Dyspnea Status: Acute (3) DVT prophylaxis Status: Acute (4) Leukocytosis Status: Acute (5) Lung cancer Status: Acute - Assessment and Plan (Free Text) Assessment: (1) Atrial flutter Assessment and Plan: cardizem gtt icu cardioivf Status: Acute (2) Dyspnea Assessment and Plan: improving, on resp tx icu care r/t tachycardia and lung ca Status: Acute (3) DVT prophylaxis Assessment and Plan: scd andae hose eliquis Status: Acute (4) Leukocytosis Assessment and Plan: heme/onc, ID consult procalcitonin 3 rocephin started sputum c/s prelim blood/urine c/s negative Status: Acute (5) Lung cancer Assessment and Plan: heme/onc ?? need to xfer to [facility] for tx Status: Acute
[2018-03-10] MEDS: Albuterol-Ipratrop 3 mg / 0.5 (3 ml) UD INH SCH ×3 (08:08→19:09)
[2018-03-10] MEDS: Fluticasone-Salmeterol 250-50mcg Diskus IH SCH ×2 (11:29→22:49)
[2018-03-10] MEDS: cefTRIAXone 2 GM in Sodium Chloride 0.9% 100 ML IVPB SCH (11:51)
--- NOTE | 2018-03-10 12:17 | CP.PCM.PN ---
Subjective - Date & Time of Evaluation Date of Evaluation: 03/10/18 Time of Evaluation: 07:00 - Subjective Subjective: seen in ICU awake alert NAD c/o mild cough Objective - Vital Signs/Intake and Output Vital Signs (last 24 hours): Temp Pulse Resp BP Pulse Ox 98.1 F 99 H 22 108/62 95 03/10/18 08:17 03/10/18 09:00 03/10/18 09:00 03/10/18 08:52 03/10/18 08:17 Intake and Output: 03/10/18 03/10/18 06:59 18:59 Intake Total 50 Output Total 425 Balance -375 - Medications Medications: Current Medications Albuterol/Ipratropium (Duoneb 3 Mg/0.5 Mg (3 Ml) Ud) 3 ml INH RTID [facility] Last Admin: 03/10/18 08:08 Dose: 3 ml Apixaban (Eliquis) 2.5 mg PO Q12 [facility] PRN Reason: Protocol Last Admin: 03/10/18 08:52 Dose: 2.5 mg Fentanyl (Duragesic) 1 patch TD Q72H [facility] PRN Reason: Protocol Last Admin: 03/08/18 16:56 Dose: 1 patch Ceftriaxone Sodium 2 gm/ (Sodium Chloride) 100 mls @ 100 mls/hr IVPB DAILY [facility] PRN Reason: Protocol Last Admin: 03/10/18 11:51 Dose: 100 mls/hr Metoprolol Tartrate (Lopressor) 25 mg PO Q12 [facility] Last Admin: 03/10/18 08:52 Dose: 25 mg Morphine Sulfate (Morphine) 2 mg IVP Q6 PRN PRN Reason: Pain, moderate (4-7) Nicotine (Nicoderm Cq) 1 patch TD DAILY [facility] Last Admin: 03/10/18 08:53 Dose: 1 patch Oxycodone/Acetaminophen (Percocet 5/325 Mg Tab) 1 tab PO Q4 PRN PRN Reason: Pain, severe (8-10) Stop: 03/12/18 21:01 Last Admin: 03/10/18 11:25 Dose: 1 tab Fluticasone/Salmeterol (Advair Diskus 250/50) 1 puff IH Q12 [facility] Last Admin: 03/10/18 11:29 Dose: 1 puff - Labs Labs: 03/10/18 04:20 03/10/18 04:20 PT 16.1 Seconds (9.8-13.1) H 03/08/18 13:27 INR 1.4 (0.9-1.2) H 03/08/18 13:27 APTT 30.1 Seconds (25.6-37.1) 03/08/18 13:27 - Constitutional Appears: Non-toxic, Chronically Ill - Head Exam Head Exam: NORMOCEPHALIC - Eye Exam Eye Exam: PERRL - ENT Exam ENT Exam: Mucous Membranes Dry, Normal External Ear Exam - Neck Exam Neck Exam: absent: Lymphadenopathy - Respiratory Exam Respiratory Exam: Decreased Breath Sounds - Cardiovascular Exam Cardiovascular Exam: REGULAR RHYTHM - GI/Abdominal Exam GI & Abdominal Exam: Distended, Soft. absent: Tenderness - Rectal Exam Rectal Exam: Deferred - Exam Exam: NORMAL INSPECTION - Extremities Exam Extremities Exam: absent: Pedal Edema - Back Exam Back Exam: absent: CVA tenderness (L), CVA tenderness (R) - Neurological Exam Neurological Exam: Alert, Awake, Oriented x3 - Psychiatric Exam Psychiatric exam: Depressed Assessment and Plan (1) Leukocytosis (leucocytosis) Status: Acute (2) Atrial flutter Status: Acute (3) Dyspnea Status: Acute (4) Metastatic cancer Status: Acute - Assessment and Plan (Free Text) Assessment: ca lung with mets r/o sepsis COPD pneumonia cont IV rx
--- NOTE | 2018-03-10 13:12 | CP.PCM.PN ---
Subjective - Date & Time of Evaluation Date of Evaluation: 03/10/18 Time of Evaluation: 11:10 - Subjective Subjective: Feeling better Objective - Vital Signs/Intake and Output Vital Signs (last 24 hours): Temp Pulse Resp BP Pulse Ox 98.7 F 95 H 10 L 121/52 L 95 03/10/18 12:00 03/10/18 12:00 03/10/18 12:00 03/10/18 12:00 03/10/18 12:00 Intake and Output: 03/10/18 03/10/18 06:59 18:59 Intake Total 50 Output Total 425 Balance -375 - Medications Medications: Current Medications Albuterol/Ipratropium (Duoneb 3 Mg/0.5 Mg (3 Ml) Ud) 3 ml INH RTID [facility] Last Admin: 03/10/18 08:08 Dose: 3 ml Apixaban (Eliquis) 2.5 mg PO Q12 [facility] PRN Reason: Protocol Last Admin: 03/10/18 08:52 Dose: 2.5 mg Fentanyl (Duragesic) 1 patch TD Q72H [facility] PRN Reason: Protocol Last Admin: 03/08/18 16:56 Dose: 1 patch Ceftriaxone Sodium 2 gm/ (Sodium Chloride) 100 mls @ 100 mls/hr IVPB DAILY [facility] PRN Reason: Protocol Last Admin: 03/10/18 11:51 Dose: 100 mls/hr Metoprolol Tartrate (Lopressor) 25 mg PO Q12 [facility] Last Admin: 03/10/18 08:52 Dose: 25 mg Morphine Sulfate (Morphine) 2 mg IVP Q6 PRN PRN Reason: Pain, moderate (4-7) Nicotine (Nicoderm Cq) 1 patch TD DAILY [facility] Last Admin: 03/10/18 08:53 Dose: 1 patch Oxycodone/Acetaminophen (Percocet 5/325 Mg Tab) 1 tab PO Q4 PRN PRN Reason: Pain, severe (8-10) Stop: 03/12/18 21:01 Last Admin: 03/10/18 11:25 Dose: 1 tab Fluticasone/Salmeterol (Advair Diskus 250/50) 1 puff IH Q12 [facility] Last Admin: 03/10/18 11:29 Dose: 1 puff - Labs Labs: 03/10/18 04:20 03/10/18 04:20 PT 16.1 Seconds (9.8-13.1) H 03/08/18 13:27 INR 1.4 (0.9-1.2) H 03/08/18 13:27 APTT 30.1 Seconds (25.6-37.1) 03/08/18 13:27 - Head Exam Head Exam: ATRAUMATIC - Eye Exam Eye Exam: Normal appearance - ENT Exam ENT Exam: Mucous Membranes Dry - Respiratory Exam Respiratory Exam: NORMAL BREATHING PATTERN - Cardiovascular Exam Cardiovascular Exam: +S1, +S2 - GI/Abdominal Exam GI & Abdominal Exam: Normal Bowel Sounds Assessment and Plan (1) Leukocytosis (leucocytosis) Assessment & Plan: improving on antibiotics Status: Acute (2) Anemia Assessment & Plan: chronic disease Status: Acute (3) Metastatic cancer Assessment & Plan: outpatient f/u with primary oncologist on discharge to resume treatment Status: Acute
[2018-03-10] MEDS ORDERED: Amiodarone 150mg/3 ml vial ONE (17:38)
[2018-03-10] MEDS ORDERED: Amiodarone 150mg/3 ml vial IVP ONE (18:00)
--- NOTE | 2018-03-10 18:41 | CP.CCUPN ---
CCU Subjective - Physician Review Subjective (Free Text): Patient developed sudden onset SVT: narrow QRS at regular rate up to 194/min, not associated with chest pain nor any increased dyspnea. SVT occurred at the time of routine care and re-position, and patient c/o associated groin pain. Adenosine given with underlying rhythm noted to be A flutter with variable block. Bp was 130 systolic, which later dropped to 91 systolic. Amiodarone bolus and drip started in the interim,. Morphine given as well for relief of groin pain. Other vitals and I/O's reviewed. ROS: no other pertinent negs or positives on 10+ system review. PMSFH: All other Nursing and physician documentation reviewed to date; no new pertinent info obtained that is different or contributory to information already listed. EXAM- HEENT: no icterus, mild R gaze preference, pupils equal and reactive NECK: No JVD, supple, carotids equal upstroke bilat/no bruits CHEST: clear with diminished BS bilat, moreso on Left no wheezes audible. HEART: regular, distant, S1S2, no rubs or murmurs ABD: soft, no distention, no tympany, no palp tenderness, BS hypoactive EXT: No peripheral/ digital cyanosis, no calf tenderness or palpable cords, distal pulses intact and symmetrical NEURO: No gross focal motor deficits. SKIN: no rashes, warm and dry. LABS: WBC= 32.5 HGB= 11.4 PLTs= 235K Dy=901 K= 3.9 CL=97 HCO3= 27 BUN/Cr= 15/0.5 BS= 109 IMPRESSION / MAJOR PROBLEMS NOW: 1. PSVT / A Flutter with variable Block 2. Acute Resp insuff 2 Left Hemithorax opacification / Lobar collapse- Obstruction 3. Metastatic Lung CA 4. Hyponatremia PLAN: 1. Adenosine, then Amiodarone bolus and continuous drip. 2. Cautious Analgesics / Narcotic pain control prn. 3. Consider repeat CXR. 4. Awaiting Tele Bed.
--- NOTE | 2018-03-10 18:44 | CP.PCM.PN ---
Subjective - Date & Time of Evaluation Date of Evaluation: 03/10/18 Time of Evaluation: 18:20 - Subjective Subjective: patient developed SVT today. currently on amiodarone drip. Objective - Vital Signs/Intake and Output Vital Signs (last 24 hours): Temp Pulse Resp BP Pulse Ox 98.4 F 163 H 20 80/57 L 95 03/10/18 15:00 03/10/18 18:01 03/10/18 18:00 03/10/18 18:01 03/10/18 18:00 Intake and Output: 03/10/18 03/10/18 06:59 18:59 Intake Total 50 100 Output Total 425 350 Balance -375 -250 - Medications Medications: Current Medications Albuterol/Ipratropium (Duoneb 3 Mg/0.5 Mg (3 Ml) Ud) 3 ml INH RTID [facility] Last Admin: 03/10/18 13:13 Dose: 3 ml Apixaban (Eliquis) 2.5 mg PO Q12 [facility] PRN Reason: Protocol Last Admin: 03/10/18 08:52 Dose: 2.5 mg Fentanyl (Duragesic) 1 patch TD Q72H [facility] PRN Reason: Protocol Last Admin: 03/08/18 16:56 Dose: 1 patch Ceftriaxone Sodium 2 gm/ (Sodium Chloride) 100 mls @ 100 mls/hr IVPB DAILY [facility] PRN Reason: Protocol Last Admin: 03/10/18 11:51 Dose: 100 mls/hr Amiodarone HCl 450 mg/ (Dextrose) 259 mls @ 34.53 mls/hr IVPB .Q7H31M [facility]; 1 MG /MIN PRN Reason: Protocol Last Admin: 03/10/18 18:01 Dose: 34.53 mls/hr Metoprolol Tartrate (Lopressor) 25 mg PO Q12 [facility] Last Admin: 03/10/18 08:52 Dose: 25 mg Morphine Sulfate (Morphine) 2 mg IVP Q6 PRN PRN Reason: Pain, moderate (4-7) Nicotine (Nicoderm Cq) 1 patch TD DAILY [facility] Last Admin: 03/10/18 08:53 Dose: 1 patch Oxycodone/Acetaminophen (Percocet 5/325 Mg Tab) 1 tab PO Q4 PRN PRN Reason: Pain, severe (8-10) Stop: 03/12/18 21:01 Last Admin: 03/10/18 11:25 Dose: 1 tab Fluticasone/Salmeterol (Advair Diskus 250/50) 1 puff IH Q12 [facility] Last Admin: 03/10/18 11:29 Dose: 1 puff - Labs Labs: 03/10/18 04:20 03/10/18 04:20 PT 16.1 Seconds (9.8-13.1) H 03/08/18 13:27 INR 1.4 (0.9-1.2) H 03/08/18 13:27 APTT 30.1 Seconds (25.6-37.1) 03/08/18 13:27 - Constitutional Appears: Chronically Ill - Head Exam Head Exam: NORMAL INSPECTION - Eye Exam Eye Exam: Normal appearance - ENT Exam ENT Exam: Mucous Membranes Dry - Neck Exam Neck Exam: Full ROM - Respiratory Exam Respiratory Exam: Decreased Breath Sounds - Cardiovascular Exam Cardiovascular Exam: Tachycardia, REGULAR RHYTHM - GI/Abdominal Exam GI & Abdominal Exam: Normal Bowel Sounds - Rectal Exam Rectal Exam: Deferred - Extremities Exam Extremities Exam: absent: Pedal Edema - Back Exam Back Exam: NORMAL INSPECTION - Neurological Exam Neurological Exam: Alert - Psychiatric Exam Psychiatric exam: Normal Affect - Skin Skin Exam: Normal Color Assessment and Plan (1) Atrial flutter Assessment & Plan: currently in rapid atrial flutter. Would [place] benefit from cardizem as atril flutter is unlikley to respond to amio. conitnue anticoagulation. would cardiovert if patient becomes hemodynamically unstable. Status: Acute
[2018-03-10] MEDS ORDERED: Metoprolol 1 mg/ml Inj IVP ONE (19:56)
[2018-03-10] MEDS ORDERED: Sodium Chloride 0.9% 500 ML IV ONE (20:17)
[2018-03-11] MEDS: Levalbuterol 1.25 MG/3 ML Inhal Soln UD INH PRN ×2 (01:32→10:43)
[2018-03-11] MEDS ORDERED: Digoxin 500 mcg/2ml (0.5 mg/2ml) Inj IVP ONE ×2 (03:07→09:30)
[2018-03-11] MEDS ORDERED: Magnesium Sulfate 2 gm/50 ml 2 GM/50 ML BAG IVPB ONE (03:08)
[2018-03-11] MEDS ORDERED: Digoxin 500 mcg/2ml (0.5 mg/2ml) Inj ONE (03:09)
[2018-03-11 05:53] LABS: BASO # 0.1 K/uL (0.0-0.2); BASO % 0.3 % (0.0-2.0); LYMPH # 0.4 K/uL (1.0-4.3); LYMPH % 0.9 % (20.0-40.0); MEAN CELL VOLUME 97.7 fl (80.0-94.0); MEAN CORPUSCULAR HEMOGLOBIN 33.5 pg (27.0-31.0); MEAN CORPUSCULAR HGB CONC 34.3 g/dL (33.0-37.0); MEAN PLATELET VOLUME 7.1 fl (7.2-11.7); MONO # 1.4 K/uL (0.0-0.8); MONO % 3.3 % (0.0-10.0); NEUT % 95.5 % (50.0-75.0); PLATELET COUNT 271 K/uL (130-400); RBC 3.58 Mil/uL (4.40-5.90); RED CELL DISTRIBUTION WIDTH 16.8 % (11.5-14.5)
[2018-03-11 06:04] LABS: ALBUMIN 2.6 g/dL (3.5-5.0); BLOOD UREA NITROGEN 14 mg/dl (9-20); CALCIUM 8.2 mg/dL (8.4-10.2); GFR AFRICAN-AMERICAN > 60; GFR NON-AFRICAN AMERICAN > 60
[2018-03-11 06:05] LABS: ALB/GLOB RATIO 0.7 (1.0-2.1); ALT/SGPT 49 U/L (21-72); AST/SGOT 35 U/L (17-59)
[2018-03-11 06:13] LABS: WHITE BLOOD COUNT 41.9 K/uL (4.8-10.8)
--- NOTE | 2018-03-11 07:17 | CP.PCM.PN ---
Subjective - Date & Time of Evaluation Date of Evaluation: 03/11/18 Time of Evaluation: 07:17 - Subjective Subjective: pt was in rapid aflutter all night per rn. no relief from amiodarone is doing well at present on cardizem required multiple bolus no f/c,n/v/d. + cough/congestion/wheezing all bw, consults and imaging noted. Objective - Vital Signs/Intake and Output Vital Signs (last 24 hours): Temp Pulse Resp BP Pulse Ox 98.2 F 82 21 104/59 L 96 03/11/18 04:00 03/11/18 07:00 03/11/18 07:00 03/11/18 06:00 03/11/18 07:00 Intake and Output: 03/11/18 03/11/18 06:59 18:59 Intake Total 365 Output Total 400 Balance -35 - Medications Medications: Current Medications Amiodarone HCl (Cordarone) 400 mg PO DAILY [facility] Apixaban (Eliquis) 2.5 mg PO Q12 [facility] PRN Reason: Protocol Last Admin: 03/10/18 22:44 Dose: 2.5 mg Diltiazem HCl (Cardizem) 30 mg PO Q6H [facility] Last Admin: 03/10/18 20:30 Dose: 30 mg Fentanyl (Duragesic) 1 patch TD Q72H [facility] PRN Reason: Protocol Last Admin: 03/08/18 16:56 Dose: 1 patch Ceftriaxone Sodium 2 gm/ (Sodium Chloride) 100 mls @ 100 mls/hr IVPB DAILY [facility] PRN Reason: Protocol Last Admin: 03/10/18 11:51 Dose: 100 mls/hr Diltiazem HCl 125 mg/ Sodium (Chloride) 125 mls @ 5 mls/hr IV .Q24H [facility]; 5 MG/ HR PRN Reason: Protocol Stop: 03/12/18 01:16 Last Titration: 03/11/18 05:04 Dose: 12.5 mg/hr, 12.5 mls/hr Levalbuterol HCl (Xopenex) 1.25 mg INH RQ4 PRN PRN Reason: Shortness of Breath Last Admin: 03/11/18 01:32 Dose: 1.25 mg Metoprolol Succinate (Toprol Xl) 50 mg PO DAILY [facility] Morphine Sulfate (Morphine) 2 mg IVP Q6 PRN PRN Reason: Pain, moderate (4-7) Nicotine (Nicoderm Cq) 1 patch TD DAILY [facility] Last Admin: 03/10/18 08:53 Dose: 1 patch Oxycodone/Acetaminophen (Percocet 5/325 Mg Tab) 1 tab PO Q4 PRN PRN Reason: Pain, severe (8-10) Stop: 03/12/18 21:01 Last Admin: 03/10/18 18:53 Dose: 1 tab Fluticasone/Salmeterol (Advair Diskus 250/50) 1 puff IH Q12 [facility] Last Admin: 03/10/18 22:49 Dose: 1 puff - Labs Labs: 03/11/18 04:45 03/11/18 04:45 PT 16.1 Seconds (9.8-13.1) H 03/08/18 13:27 INR 1.4 (0.9-1.2) H 03/08/18 13:27 APTT 30.1 Seconds (25.6-37.1) 03/08/18 13:27 - Constitutional Appears: Non-toxic, No Acute Distress, Chronically Ill - Head Exam Head Exam: ATRAUMATIC, NORMAL INSPECTION, NORMOCEPHALIC - Eye Exam Eye Exam: EOMI, Normal appearance, PERRL Pupil Exam: NORMAL ACCOMODATION, PERRL - ENT Exam ENT Exam: Mucous Membranes Moist, Normal Exam - Neck Exam Neck Exam: Full ROM, Normal Inspection. absent: Lymphadenopathy - Respiratory Exam Respiratory Exam: Wheezes, NORMAL BREATHING PATTERN - Cardiovascular Exam Cardiovascular Exam: Irregular Rhythm, +S1, +S2. absent: Murmur - GI/Abdominal Exam GI & Abdominal Exam: Soft, Normal Bowel Sounds. absent: Tenderness - Extremities Exam Extremities Exam: Full ROM, Normal Capillary Refill, Normal Inspection. absent : Joint Swelling, Pedal Edema - Back Exam Back Exam: NORMAL INSPECTION - Neurological Exam Neurological Exam: Alert, Awake, CN II-XII Intact, Normal Gait, Oriented x3 - Psychiatric Exam Psychiatric exam: Normal Affect, Normal Mood - Skin Skin Exam: Dry, Intact, Normal Color, Warm Assessment and Plan (1) Atrial flutter Status: Acute (2) Dyspnea Status: Acute (3) DVT prophylaxis Status: Acute (4) Leukocytosis Status: Acute (5) Lung cancer Status: Acute - Assessment and Plan (Free Text) Assessment: (1) Atrial flutter Assessment and Plan: cardizem gtt restarted icu cardioivf b jes case d/c w/ dr coronel Status: Acute (2) Dyspnea Assessment and Plan: improving, on resp tx icu care r/t tachycardia and lung ca abn cxr noted. will d/c case w/ pts onc in [place] ?? pulm consult Status: Acute (3) DVT prophylaxis Assessment and Plan: scd andae hose eliquis Status: Acute (4) Leukocytosis Assessment and Plan: heme/onc, ID consult procalcitonin 3 rocephin started sputum c/s prelim blood/urine c/s negative Status: Acute (5) Lung cancer Assessment and Plan: heme/onc ?? need to xfer to [place] for tx hospice consult Status: Acute
[2018-03-11] MEDS: Fluticasone-Salmeterol 250-50mcg Diskus IH SCH ×2 (08:53→21:59)
[2018-03-11] MEDS: cefTRIAXone 2 GM in Sodium Chloride 0.9% 100 ML IVPB SCH (08:55)
[2018-03-11] MEDS: Metoprolol Succinate 50 mg XL Tab PO SCH (08:55)
[2018-03-11 11:05] LABS: ANISOCYTOSIS SLIGHT; BANDS 1 % (0-2); MONOCYTE 1 % (0-10); NEUTROPHIL 98 % (42-75); PLATELET ESTIMATE NORMAL (NORMAL); TOTAL CELLS COUNTED 100
[2018-03-11] MEDS ORDERED: Amiodarone 900 MG in Dextrose 5% In Water 500 ML IVPB SCH (11:07)
[2018-03-11 11:08] LABS: LYMPHOCYTE 0 % (20-50)
[2018-03-11] MEDS ORDERED: Amiodarone 450 MG in Sodium Chloride 0.9% 250 ML IVPB SCH ×2 (11:15→22:00)
[2018-03-11] MEDS ORDERED: Amiodarone 150 mg/D5W 100 ml 150 MG/100 ML BAG IVPB ONE (11:17)
[2018-03-11 11:19] VITALS: PULSE 163
--- NOTE | 2018-03-11 11:20 | CP.CCUPN ---
CCU Subjective - Physician Review Subjective (Free Text): Recurrent SVT noted with A flutter with RVR and at times in 2:1 block. Multiple meds given overnight including saline fluid challenge, Amio, Digoxin, Lopressor , Magnesium, and IV Cardizem. Rhythm slowed and converted to sinus at 82/min briefly for a 3 hour period only, and reverted t back to A Flutter with 2:1 conduction. He remains awake, alert and otherwise completely and subjectively asymptomatic, with Cardizem at 15mg/hr now, SBP 82. Other vitals and I/O's reviewed. ROS: no other pertinent negs or positives on 10+ system review. PMSFH: All other Nursing and physician documentation reviewed to date; no new pertinent info obtained that is different or contributory to information already listed. EXAM- HEENT: no icterus, pupils equal and reactive NECK: No JVD, supple, carotids equal upstroke bilat/no bruits CHEST: clear with diminished BS bilat, moreso on Left no wheezes audible. HEART: regular, distant, S1S2, no rubs or murmurs ABD: soft, no distention, no tympany, no palp tenderness, BS hypoactive EXT: No peripheral/ digital cyanosis, no calf tenderness or palpable cords, distal pulses intact and symmetrical NEURO: No gross focal motor deficits. SKIN: no rashes, warm and dry. LABS: WBC= 41.9 HGB= 12.0 PLTs= 271K Oh=227 K= 3.5 CL=95 HCO3= 24 BUN/Cr= 14/0.5 BS= 120 IMPRESSION / MAJOR PROBLEMS NOW: 1. PSVT / A Flutter with variable Block 2. Acute Resp insuff 2 Left Hemithorax opacification / Lobar collapse- Bronchial tumor obstruction 3. Metastatic Lung CA 4. Hyponatremia PLAN: 1. As of the time of this note, have been informed by hospital Pharmacy that there is a national backorder on IV Cardizem and hospital presently has run out of stock. [facility] called and no stock available there as well. Additional dose of Digoxin given without effect. Amiodarone bolus given and will start interim drip. Watch for Dig-Amio interactions. Sync cardioversion option considered if he remains hypotensive, to be administered under very cautious conscious sedation given his wishes for DNR/DNI. 2. Will order repeat CXR now. 3. Watch serum Na levels, check serum osm; negative fluid balance noted over the past 24H, will stayrt NSS IVFs. 4. PMD considering Hospice eval.
[2018-03-11] MEDS: Amiodarone 450 MG in Sodium Chloride 0.9% 250 ML IVPB SCH (11:59)
--- NOTE | 2018-03-11 12:00 | RAD ---
HISTORY: f/u left effusion / atelectasis COMPARISON: Frontal chest radiograph 03/08/2018. FINDINGS: LUNGS: No definitive infiltrate bilaterally. Left hilar prominence unchanged. Left hemithorax otherwise unremarkable. PLEURA: No significant pleural effusion identified, no pneumothorax apparent. CARDIOVASCULAR: Normal. OSSEOUS STRUCTURES: No significant abnormalities. VISUALIZED UPPER ABDOMEN: Normal. OTHER FINDINGS: None. IMPRESSION: No acute infiltrate bilaterally. No pleural effusion or pneumothorax. Prominent left high hilar soft tissue reiterated.
--- NOTE | 2018-03-11 15:55 | CP.PCM.PN ---
Subjective - Date & Time of Evaluation Date of Evaluation: 03/11/18 Time of Evaluation: 12:15 - Subjective Subjective: Has some shortness of breath, at bedside. Objective - Vital Signs/Intake and Output Vital Signs (last 24 hours): Temp Pulse Resp BP Pulse Ox 98 F 126 H 17 101/64 96 03/11/18 12:00 03/11/18 14:00 03/11/18 14:00 03/11/18 14:00 03/11/18 14:00 Intake and Output: 03/11/18 03/11/18 06:59 18:59 Intake Total 365 230 Output Total 400 Balance -35 230 - Medications Medications: Current Medications Amiodarone HCl (Cordarone) 400 mg PO DAILY [facility] Last Admin: 03/11/18 08:53 Dose: 400 mg Apixaban (Eliquis) 2.5 mg PO Q12 [facility] PRN Reason: Protocol Last Admin: 03/11/18 08:54 Dose: 2.5 mg Diltiazem HCl (Cardizem) 30 mg PO Q6H [facility] Last Admin: 03/10/18 20:30 Dose: 30 mg Fentanyl (Duragesic) 1 patch TD Q72H [facility] PRN Reason: Protocol Last Admin: 03/08/18 16:56 Dose: 1 patch Ceftriaxone Sodium 2 gm/ (Sodium Chloride) 100 mls @ 100 mls/hr IVPB DAILY [facility] PRN Reason: Protocol Last Admin: 03/11/18 08:55 Dose: 100 mls/hr Diltiazem HCl 125 mg/ Sodium (Chloride) 125 mls @ 10 mls/hr IV .[id number] ONE; 10 MG/HR PRN Reason: Protocol Stop: 03/11/18 13:46 Amiodarone HCl 450 mg/ Sodium (Chloride) 259 mls @ 34.53 mls/hr IVPB .Q7H31M [facility]; 1 MG/MIN PRN Reason: Protocol Last Admin: 03/11/18 11:59 Dose: 34.53 mls/hr Levalbuterol HCl (Xopenex) 1.25 mg INH RQ4 PRN PRN Reason: Shortness of Breath Last Admin: 03/11/18 10:43 Dose: 1.25 mg Metoprolol Succinate (Toprol Xl) 50 mg PO DAILY [facility] Last Admin: 03/11/18 08:55 Dose: 50 mg Morphine Sulfate (Morphine) 2 mg IVP Q6 PRN PRN Reason: Pain, moderate (4-7) Last Admin: 03/11/18 08:59 Dose: 2 mg Nicotine (Nicoderm Cq) 1 patch TD DAILY [facility] Last Admin: 03/11/18 08:54 Dose: 1 patch Oxycodone/Acetaminophen (Percocet 5/325 Mg Tab) 1 tab PO Q4 PRN PRN Reason: Pain, severe (8-10) Stop: 03/12/18 21:01 Last Admin: 03/10/18 18:53 Dose: 1 tab Fluticasone/Salmeterol (Advair Diskus 250/50) 1 puff IH Q12 [facility] Last Admin: 03/11/18 08:53 Dose: 1 puff - Labs Labs: 03/11/18 04:45 03/11/18 04:45 PT 16.1 Seconds (9.8-13.1) H 03/08/18 13:27 INR 1.4 (0.9-1.2) H 03/08/18 13:27 APTT 30.1 Seconds (25.6-37.1) 03/08/18 13:27 - Head Exam Head Exam: ATRAUMATIC - Eye Exam Eye Exam: Normal appearance - ENT Exam ENT Exam: Mucous Membranes Dry - Respiratory Exam Respiratory Exam: NORMAL BREATHING PATTERN - Cardiovascular Exam Cardiovascular Exam: +S1, +S2 - GI/Abdominal Exam GI & Abdominal Exam: Normal Bowel Sounds Assessment and Plan (1) Leukocytosis (leucocytosis) Assessment & Plan: likely reactive afebrile Status: Acute (2) Anemia Assessment & Plan: chronic disease from malignancy Status: Acute (3) Metastatic cancer Assessment & Plan: stage IV was on palliative radiotherapy per pts , has not started systemic therapy not a treatment candidate at this point given cardiac instability DNR/DNI Status: Acute
--- NOTE | 2018-03-11 18:31 | CP.PCM.CON ---
History of Present Illness - History of Present Illness History of Present Illness: Patient remains in sinus rhythm. on amio Review of Systems - Constitutional Constitutional: absent: As Per HPI, Anorexia, Chills, Daytime Sleepiness, Excessive Sweating, Fatigue, Fever, Frequent Falls, Headache, Increased Appetite , Lethargy, Malaise, Night Sweats, Snoring, Sleep Apnea, Weight Gain, Weight Loss, Weakness, Other - EENT Eyes: absent: As Per HPI, Blind Spots, Blurred Vision, Change in Vision, Decreased Night Vision, Diplopia, Discharge, Dry Eye, Exophthalmos, Floaters, Irritation, Itchy Eyes, Loss of Peripheral Vision, Pain, Photophobia, Requires Corrective Lenses, Sees Flashes, Spots in Vision, Tunnel Vision, Other Visual Disturbances, Loss of Vision, Other Ears: absent: As Per HPI, Decreased Hearing, Ear Discharge, Ear Pain, Tinnitus, Abnormal Hearing, Disequilibrium, Dizziness, Other Nose/Mouth/Throat: absent: As Per HPI, Epistaxis, Nasal Congestion, Nasal Discharge, Nasal Obstruction, Nasal Trauma, Nose Pain, Post Nasal Drip, Sinus Pain, Sinus Pressure, Bleeding Gums, Change in Voice, Dental Pain, Dry Mouth, Dysphagia, Halitosis, Hoarsness, Lip Swelling, Mouth Lesions, Mouth Pain, Odynophagia, Sore Throat, Throat Swelling, Tongue Swelling, Facial Pain, Neck Pain, Neck Mass, Other - Cardiovascular Cardiovascular: Dyspnea - Respiratory Respiratory: Dyspnea - Gastrointestinal Gastrointestinal: absent: As Per HPI, Abdominal Pain, Belching, Bloating, Change in Bowel Habits, Change in Stool Character, Coffee Ground Emesis, Constipation, Cramping, Diarrhea, Dyspepsia, Dysphagia, Early Satiety, Excessive Flatus, Fecal Incontinence, Heartburn, Hematemesis, Hematochezia, Loose Stools, Melena, Nausea, Odynophagia, Temesmus, Vomiting, Other - Genitourinary Genitourinary: absent: As Per HPI, Change in Urinary Stream, Difficulty Urinating, Dysuria, Flank Pain, Hematuria, Pyuria, Nocturia, Urinary Incontinence, Urinary Frequency, Urinary Hesitance, Urinary Urgency, Voiding Freq/Small Amts, Freq UTI, Hx Renal/Bladder Calculi, Hx /Renal Surgery, Bladder Distension, Other - Musculoskeletal Musculoskeletal: absent: As Per HPI, Abnormal Gait, Arthralgias, Atrophy, Back Pain, Deformity, Joint Swelling, Limited Range of Motion, Loss of Height, Muscle Cramps, Muscle Weakness, Myalgias, Neck Pain, Numbness, Radiating Pain into Limb, Stiffness, Tingling, Other - Integumentary Integumentary: absent: As Per HPI, Acne, Alopecia, Bleeding Lesions, Change in Hair, Change in Nails, Change in Pigmentation, Changing Lesions, Dry Skin, Erythema, Furuncle, Hirsutism, Lesions, New Lesions, Non-Healing Lesions, Photosensitivity, Pruritus, Rash, Skin Pain, Skin Ulcer, Sores, Striae, Swelling , Unusual Bruising, Wounds, Jaundice, Other - Neurological Neurological: absent: As Per HPI, Abnormal Gait, Abnormal Hearing, Abnormal Movements, Abnormal Speech, Behavioral Changes, Burning Sensations, Confusion, Convulsions, Disequilibrium, Dizziness, Numbness, Focal Weakness, Frequent Falls , Headaches, Lack of Coordination, Loss of Vision, Memory Loss, Paresthesias, Radicular Pain, Restless Legs, Sensory Deficit, Syncope, Tingling, Tremor, Vertigo, Weakness, Other Visual Disturbances, Other - Psychiatric Psychiatric: absent: As Per HPI, Abnormal Sleep Pattern, Anhedonia, Anxiety, Auditory Hallucinations, Behavioral Changes, Change in Appetite, Change in Libido, Confusion, Depression, Difficulty Concentrating, Hallucinations, Homicidal Ideation, Hopelessness, Irritability, Memory Loss, Mood Swings, Panic Attacks, Paranoia, Suicidal Ideation, Visual Hallucinations, Tactile Hallucinations, Other - Endocrine Endocrine: absent: As Per HPI, Change in Body Appearance, Change in Libido, Cold Intolorance, Deepening of Voice, Excessive Sweating, Fatigue, Flushing, Heat Intolorance, Increase in Ring/Shoe/Hat Size, Palpitations, Polydipsia, Polyphagia, Polyuria, Other - Hematologic/Lymphatic Hematologic: absent: As Per HPI, Easy Bleeding, Easy Bruising, Lymphadenopathy, Other Past Patient History - Past Medical History & Family History Past Medical History?: Yes - Past Social History Smoking Status: Former Smoker - CARDIAC Hx Cardiac Disorders: No - PULMONARY Hx Pneumonia: Yes - NEUROLOGICAL Hx Neurological Disorder: No - HEENT Hx HEENT Problems: No - RENAL Hx Chronic Kidney Disease: No - ENDOCRINE/METABOLIC Hx Endocrine Disorders: No - HEMATOLOGICAL/ONCOLOGICAL Hx Blood Disorders: No - INTEGUMENTARY Hx Dermatological Problems: No - MUSCULOSKELETAL/RHEUMATOLOGICAL Hx Musculoskeletal Disorders: No Hx Falls: Yes - GENITOURINARY/GYNECOLOGICAL Hx Genitourinary Disorders: No - PSYCHIATRIC Hx Psychophysiologic Disorder: No Hx Substance Use: No - SURGICAL HISTORY Hx Surgeries: Yes Other/Comment: Polyps removed from throat. - ANESTHESIA Hx Anesthesia: Yes Hx Anesthesia Reactions: No Hx Malignant Hyperthermia: No Meds Allergies/Adverse Reactions: Allergies Allergy/AdvReac Type Severity Reaction Status Date / Time No Known Allergies Allergy Verified 03/08/18 12:55 - Medications Medications: Current Medications Amiodarone HCl (Cordarone) 400 mg PO DAILY [facility] Last Admin: 03/11/18 08:53 Dose: 400 mg Apixaban (Eliquis) 2.5 mg PO Q12 [facility] PRN Reason: Protocol Last Admin: 03/11/18 08:54 Dose: 2.5 mg Diltiazem HCl (Cardizem) 30 mg PO Q6H [facility] Last Admin: 03/10/18 20:30 Dose: 30 mg Fentanyl (Duragesic) 1 patch TD Q72H [facility] PRN Reason: Protocol Last Admin: 03/11/18 16:00 Dose: 1 patch Ceftriaxone Sodium 2 gm/ (Sodium Chloride) 100 mls @ 100 mls/hr IVPB DAILY [facility] PRN Reason: Protocol Last Admin: 03/11/18 08:55 Dose: 100 mls/hr Diltiazem HCl 125 mg/ Sodium (Chloride) 125 mls @ 10 mls/hr IV .[id number] ONE; 10 MG/HR PRN Reason: Protocol Stop: 03/11/18 13:46 Amiodarone HCl 450 mg/ Sodium (Chloride) 259 mls @ 34.53 mls/hr IVPB .Q7H31M [facility]; 1 MG/MIN PRN Reason: Protocol Last Admin: 03/11/18 11:59 Dose: 34.53 mls/hr Levalbuterol HCl (Xopenex) 1.25 mg INH RQ4 PRN PRN Reason: Shortness of Breath Last Admin: 03/11/18 10:43 Dose: 1.25 mg Metoprolol Succinate (Toprol Xl) 50 mg PO DAILY [facility] Last Admin: 03/11/18 08:55 Dose: 50 mg Morphine Sulfate (Morphine) 2 mg IVP Q6 PRN PRN Reason: Pain, moderate (4-7) Last Admin: 03/11/18 16:03 Dose: 2 mg Nicotine (Nicoderm Cq) 1 patch TD DAILY [facility] Last Admin: 03/11/18 08:54 Dose: 1 patch Oxycodone/Acetaminophen (Percocet 5/325 Mg Tab) 1 tab PO Q4 PRN PRN Reason: Pain, severe (8-10) Stop: 03/12/18 21:01 Last Admin: 03/10/18 18:53 Dose: 1 tab Fluticasone/Salmeterol (Advair Diskus 250/50) 1 puff IH Q12 [facility] Last Admin: 03/11/18 08:53 Dose: 1 puff Physical Exam - Constitutional Appears: Toxic, Chronically Ill - Head Exam Head Exam: NORMAL INSPECTION - Eye Exam Eye Exam: Normal appearance - ENT Exam ENT Exam: Mucous Membranes Moist - Neck Exam Neck exam: Positive for: Full Rom - Respiratory Exam Respiratory Exam: Decreased Breath Sounds - Cardiovascular Exam Cardiovascular Exam: REGULAR RHYTHM - GI/Abdominal Exam GI & Abdominal Exam: Normal Bowel Sounds - Rectal Exam Rectal Exam: Deferred - Extremities Exam Extremities exam: Positive for: pedal edema - Back Exam Back exam: NORMAL INSPECTION - Neurological Exam Neurological exam: Alert - Skin Skin Exam: Normal Color Results - Vital Signs Recent Vital Signs: Last Vital Signs Temp 98.8 F 03/11/18 16:00 Pulse 82 03/11/18 18:00 Resp 14 03/11/18 18:00 BP 92/61 L 03/11/18 18:00 Pulse Ox 97 03/11/18 18:00 - Labs Result Diagrams: 03/11/18 04:45 03/11/18 04:45 Labs: Laboratory Results - last 24 hr 03/11/18 03/11/18 03/11/18 03:03 04:45 04:45 WBC 41.9 H* RBC 3.58 L Hgb 12.0 Hct 35.0 MCV 97.7 H MCH 33.5 H MCHC 34.3 RDW 16.8 H Plt Count 271 MPV 7.1 L Neut % (Auto) 95.5 H Lymph % (Auto) 0.9 L [place] % (Auto) 3.3 Eos % (Auto) 0.0 Baso % (Auto) 0.3 Neut # (Auto) 40.0 H Lymph # (Auto) 0.4 L [place] # (Auto) 1.4 H Eos # (Auto) 0.0 Baso # (Auto) 0.1 Neutrophils % (Manual) 98 H Band Neutrophils % 1 Lymphocytes % (Manual) 0 L Monocytes % (Manual) 1 Platelet Estimate Normal Anisocytosis (manual) Slight Macrocytosis (manual) Slight Sodium 129 L Potassium 3.5 L Chloride 95 L Carbon Dioxide 24 Anion Gap 14 BUN 14 Creatinine 0.5 L Est GFR ( Amer) > 60 Est GFR (Non-Af Amer) > 60 Random Glucose 120 H Calcium 8.2 L Phosphorus 4.0 Magnesium 1.7 2.0 Total Bilirubin 1.9 H AST 35 ALT 49 Alkaline Phosphatase 208 H Total Protein 6.5 Albumin 2.6 L Globulin 3.9 Albumin/Globulin Ratio 0.7 L Assessment & Plan (1) Atrial flutter Assessment and Plan: currently in sinus. will maintain amio. Status: Acute
[2018-03-12 05:43] LABS: BASO # 0.2 K/uL (0.0-0.2); BASO % 0.4 % (0.0-2.0); HEMOGLOBIN 11.4 g/dL (12.0-18.0); LYMPH # 0.5 K/uL (1.0-4.3); MEAN CELL VOLUME 98.5 fl (80.0-94.0); MEAN CORPUSCULAR HEMOGLOBIN 33.8 pg (27.0-31.0); MEAN CORPUSCULAR HGB CONC 34.3 g/dL (33.0-37.0); MEAN PLATELET VOLUME 7.4 fl (7.2-11.7); MONO # 1.5 K/uL (0.0-0.8); MONO % 2.9 % (0.0-10.0); NEUT % 95.7 % (50.0-75.0); RBC 3.36 Mil/uL (4.40-5.90); RED CELL DISTRIBUTION WIDTH 16.1 % (11.5-14.5)
[2018-03-12 05:51] LABS: WHITE BLOOD COUNT 52.3 K/uL (4.8-10.8)
[2018-03-12 06:00] LABS: ALB/GLOB RATIO 0.6 (1.0-2.1); ALBUMIN 2.5 g/dL (3.5-5.0); ALT/SGPT 41 U/L (21-72); AST/SGOT 27 U/L (17-59); BLOOD UREA NITROGEN 19 mg/dl (9-20); CALCIUM 8.7 mg/dL (8.4-10.2); GFR AFRICAN-AMERICAN > 60; GFR NON-AFRICAN AMERICAN > 60
--- NOTE | 2018-03-12 07:31 | CP.PCM.PN ---
Subjective - Date & Time of Evaluation Date of Evaluation: 03/12/18 Time of Evaluation: 07:30 - Subjective Subjective: pt offers no complaints. no sob, f/c, n/v/d. nsr on monitor 80s all meds, overnight events, consult notes appriciated downgrade to tele. d/c w/ dr cisneros Objective - Vital Signs/Intake and Output Vital Signs (last 24 hours): Temp Pulse Resp BP Pulse Ox 98.8 F 83 29 H 112/60 96 03/12/18 04:00 03/12/18 07:00 03/12/18 07:00 03/12/18 07:00 03/12/18 07:00 Intake and Output: 03/12/18 03/12/18 06:59 18:59 Intake Total 313 Output Total 400 Balance -87 - Medications Medications: Current Medications Amiodarone HCl (Cordarone) 400 mg PO DAILY [facility] Last Admin: 03/11/18 08:53 Dose: 400 mg Apixaban (Eliquis) 2.5 mg PO Q12 [facility] PRN Reason: Protocol Last Admin: 03/11/18 21:59 Dose: 2.5 mg Diltiazem HCl (Cardizem) 30 mg PO Q6H [facility] Last Admin: 03/10/18 20:30 Dose: 30 mg Fentanyl (Duragesic) 1 patch TD Q72H [facility] PRN Reason: Protocol Last Admin: 03/11/18 16:00 Dose: 1 patch Ceftriaxone Sodium 2 gm/ (Sodium Chloride) 100 mls @ 100 mls/hr IVPB DAILY [facility] PRN Reason: Protocol Last Admin: 03/11/18 08:55 Dose: 100 mls/hr Diltiazem HCl 125 mg/ Sodium (Chloride) 125 mls @ 10 mls/hr IV .[id number] ONE; 10 MG/HR PRN Reason: Protocol Stop: 03/11/18 13:46 Amiodarone HCl 450 mg/ Sodium (Chloride) 259 mls @ 34.53 mls/hr IVPB .Q7H31M [facility]; 1 MG/MIN PRN Reason: Protocol Last Admin: 03/11/18 11:59 Dose: 34.53 mls/hr Amiodarone HCl 450 mg/ Sodium (Chloride) 259 mls @ 17.26 mls/hr IVPB .Q15H1M [facility]; 0.5 MG/MIN PRN Reason: Protocol Stop: 03/12/18 12:00 Last Admin: 03/11/18 22:00 Dose: 17.26 mls/hr Levalbuterol HCl (Xopenex) 1.25 mg INH RQ4 PRN PRN Reason: Shortness of Breath Last Admin: 03/11/18 10:43 Dose: 1.25 mg Metoprolol Succinate (Toprol Xl) 50 mg PO DAILY [facility] Last Admin: 03/11/18 08:55 Dose: 50 mg Morphine Sulfate (Morphine) 2 mg IVP Q6 PRN PRN Reason: Pain, moderate (4-7) Last Admin: 03/11/18 16:03 Dose: 2 mg Nicotine (Nicoderm Cq) 1 patch TD DAILY [facility] Last Admin: 03/11/18 08:54 Dose: 1 patch Oxycodone/Acetaminophen (Percocet 5/325 Mg Tab) 1 tab PO Q4 PRN PRN Reason: Pain, severe (8-10) Stop: 03/12/18 21:01 Last Admin: 03/10/18 18:53 Dose: 1 tab Fluticasone/Salmeterol (Advair Diskus 250/50) 1 puff IH Q12 [facility] Last Admin: 03/11/18 21:59 Dose: 1 puff - Labs Labs: 03/12/18 04:50 03/12/18 04:50 PT 16.1 Seconds (9.8-13.1) H 03/08/18 13:27 INR 1.4 (0.9-1.2) H 03/08/18 13:27 APTT 30.1 Seconds (25.6-37.1) 03/08/18 13:27 - Constitutional Appears: Non-toxic, No Acute Distress - Head Exam Head Exam: ATRAUMATIC, NORMAL INSPECTION, NORMOCEPHALIC - Eye Exam Eye Exam: EOMI, Normal appearance, PERRL Pupil Exam: NORMAL ACCOMODATION, PERRL - ENT Exam ENT Exam: Mucous Membranes Moist, Normal Exam - Neck Exam Neck Exam: Full ROM, Normal Inspection. absent: Lymphadenopathy - Respiratory Exam Respiratory Exam: Clear to Ausculation Bilateral, NORMAL BREATHING PATTERN - Cardiovascular Exam Cardiovascular Exam: REGULAR RHYTHM, RRR, +S1, +S2. absent: Murmur - GI/Abdominal Exam GI & Abdominal Exam: Soft, Normal Bowel Sounds. absent: Tenderness - Extremities Exam Extremities Exam: Full ROM, Normal Capillary Refill, Normal Inspection. absent : Joint Swelling, Pedal Edema - Back Exam Back Exam: NORMAL INSPECTION - Neurological Exam Neurological Exam: Alert, Awake, CN II-XII Intact, Normal Gait, Oriented x3 - Psychiatric Exam Psychiatric exam: Normal Affect, Normal Mood - Skin Skin Exam: Dry, Intact, Normal Color, Warm Assessment and Plan (1) Atrial flutter Status: Acute (2) Dyspnea Status: Acute (3) DVT prophylaxis Status: Acute (4) Leukocytosis Status: Acute (5) Lung cancer Status: Acute - Assessment and Plan (Free Text) Assessment: (1) Atrial flutter Assessment and Plan: cardizem gtt out of stock, amiodarone gtt, cardizem po, metoprolol po icu cardioivf b jes case d/c w/ dr coronel nsr 80s noted Status: Acute (2) Dyspnea Assessment and Plan: improving, on resp tx icu care r/t tachycardia and lung ca abn cxr noted. will d/c case w/ pts onc in [place] pt comfortable off o2 Status: Acute (3) DVT prophylaxis Assessment and Plan: scd andae hose eliquis Status: Acute (4) Leukocytosis Assessment and Plan: heme/onc, ID consult procalcitonin 3 rocephin started sputum c/s prelim blood/urine c/s negative Status: Acute (5) Lung cancer Assessment and Plan: heme/onc ?? need to xfer to [place] for tx hospice consult Status: Acute
--- NOTE | 2018-03-12 08:28 | CARD ---
APPROVED REPORT EKG Measurement Heart [id number] HI 112P [id number] <Conclusion> ???Sinus tachycardia Nonspecific intraventricular block Abnormal ECG
[2018-03-12] MEDS: Fluticasone-Salmeterol 250-50mcg Diskus IH SCH ×2 (08:32→20:21)
[2018-03-12] MEDS: cefTRIAXone 2 GM in Sodium Chloride 0.9% 100 ML IVPB SCH (08:33)
[2018-03-12] MEDS: Metoprolol Succinate 50 mg XL Tab PO SCH (08:33)
--- NOTE | 2018-03-12 08:36 | CARD ---
APPROVED REPORT EKG Measurement Heart [id number] <Conclusion> Wide QRS tachycardia (? A Flutter with 2:1 A:V cond) Nonspecific intraventricular block Abnormal ECG
[2018-03-12] MEDS: Oxycodone/Acetaminophen 5/325 mg Tab PO PRN ×2 (08:37→20:06)
--- NOTE | 2018-03-12 12:45 | CP.PCM.PN ---
Subjective - Date & Time of Evaluation Date of Evaluation: 03/12/18 Time of Evaluation: 10:00 - Subjective Subjective: WEAK NAD COUGH AND CONGESTION + Objective - Vital Signs/Intake and Output Vital Signs (last 24 hours): Temp Pulse Resp BP Pulse Ox 98 F 82 17 111/56 L 99 03/12/18 12:00 03/12/18 12:00 03/12/18 12:00 03/12/18 12:00 03/12/18 12:00 Intake and Output: 03/12/18 03/12/18 06:59 18:59 Intake Total 313 134 Output Total 400 Balance -87 134 - Medications Medications: Current Medications Amiodarone HCl (Cordarone) 400 mg PO DAILY [facility] Last Admin: 03/11/18 08:53 Dose: 400 mg Apixaban (Eliquis) 2.5 mg PO Q12 [facility] PRN Reason: Protocol Last Admin: 03/12/18 08:32 Dose: 2.5 mg Diltiazem HCl (Cardizem) 30 mg PO Q6H [facility] Last Admin: 03/10/18 20:30 Dose: 30 mg Fentanyl (Duragesic) 1 patch TD Q72H [facility] PRN Reason: Protocol Last Admin: 03/11/18 16:00 Dose: 1 patch Amiodarone HCl 450 mg/ Sodium (Chloride) 259 mls @ 34.53 mls/hr IVPB .Q7H31M [facility]; 1 MG/MIN PRN Reason: Protocol Last Admin: 03/11/18 11:59 Dose: 34.53 mls/hr Levalbuterol HCl (Xopenex) 1.25 mg INH RQ4 PRN PRN Reason: Shortness of Breath Last Admin: 03/11/18 10:43 Dose: 1.25 mg Metoprolol Succinate (Toprol Xl) 50 mg PO DAILY [facility] Last Admin: 03/12/18 08:33 Dose: 50 mg Morphine Sulfate (Morphine) 2 mg IVP Q6 PRN PRN Reason: Pain, moderate (4-7) Last Admin: 03/11/18 16:03 Dose: 2 mg Nicotine (Nicoderm Cq) 1 patch TD DAILY [facility] Last Admin: 03/12/18 08:32 Dose: 1 patch Oxycodone/Acetaminophen (Percocet 5/325 Mg Tab) 1 tab PO Q4 PRN PRN Reason: Pain, severe (8-10) Stop: 03/12/18 21:01 Last Admin: 03/12/18 08:37 Dose: 1 tab Fluticasone/Salmeterol (Advair Diskus 250/50) 1 puff IH Q12 [facility] Last Admin: 03/12/18 08:32 Dose: 1 puff - Labs Labs: 03/12/18 04:50 03/12/18 04:50 PT 16.1 Seconds (9.8-13.1) H 03/08/18 13:27 INR 1.4 (0.9-1.2) H 03/08/18 13:27 APTT 30.1 Seconds (25.6-37.1) 03/08/18 13:27 - Constitutional Appears: Chronically Ill - Head Exam Head Exam: NORMOCEPHALIC - Eye Exam Eye Exam: absent: Scleral icterus - ENT Exam ENT Exam: Mucous Membranes Dry - Neck Exam Neck Exam: absent: Lymphadenopathy - Respiratory Exam Respiratory Exam: Decreased Breath Sounds - Cardiovascular Exam Cardiovascular Exam: REGULAR RHYTHM - GI/Abdominal Exam GI & Abdominal Exam: Distended, Soft - Rectal Exam Rectal Exam: Deferred - Exam Exam: NORMAL INSPECTION Assessment and Plan (1) Leukocytosis (leucocytosis) Status: Acute (2) Atrial flutter Status: Acute (3) Dyspnea Status: Acute (4) Metastatic cancer Status: Acute - Assessment and Plan (Free Text) Assessment: ADD ZOSYN- POST OBSTRUCTIVE PNEUMONIA HOSPICE EVAL
[2018-03-12] MEDS ORDERED: Metoprolol Succinate 50 mg XL Tab PO ONE (14:15)
[2018-03-12] MEDS: Piperacillin/Tazobact 3.375 GM in Sodium Chloride 0.9% 100 ML IVPB SCH ×2 (15:06→20:24)
[2018-03-13] MEDS: Piperacillin/Tazobact 3.375 GM in Sodium Chloride 0.9% 100 ML IVPB SCH ×3 (04:23→19:53)
[2018-03-13] MEDS: Metoprolol Succinate 50 mg XL Tab PO SCH ×2 (06:48→09:08)
--- NOTE | 2018-03-13 07:15 | CP.PCM.PN ---
Subjective - Date & Time of Evaluation Date of Evaluation: 03/13/18 Time of Evaluation: 07:14 - Subjective Subjective: pt offers no complaints. nof/c, n/v/d. no plapitations, dyspnea or cp. started on zosyn yesterday for post obstructive pna. wbc 52 per rn about 30 min ago started w/ rapid aflutter 160s. being restarted on cradizem Objective - Vital Signs/Intake and Output Vital Signs (last 24 hours): Temp Pulse Resp BP Pulse Ox 98.8 F 144 H 20 96/71 L 98 03/13/18 06:00 03/13/18 06:48 03/13/18 06:45 03/13/18 06:48 03/13/18 06:45 Intake and Output: 03/13/18 03/13/18 06:59 18:59 Intake Total 295 Output Total 380 Balance -85 - Medications Medications: Current Medications Amiodarone HCl (Cordarone) 400 mg PO DAILY [facility] Last Admin: 03/11/18 08:53 Dose: 400 mg Apixaban (Eliquis) 2.5 mg PO Q12 [facility] PRN Reason: Protocol Last Admin: 03/12/18 20:21 Dose: 2.5 mg Diltiazem HCl (Cardizem) 30 mg PO Q6H [facility] Last Admin: 03/10/18 20:30 Dose: 30 mg Fentanyl (Duragesic) 1 patch TD Q72H [facility] PRN Reason: Protocol Last Admin: 03/11/18 16:00 Dose: 1 patch Amiodarone HCl 450 mg/ Sodium (Chloride) 259 mls @ 34.53 mls/hr IVPB .Q7H31M [facility]; 1 MG/MIN PRN Reason: Protocol Last Admin: 03/11/18 11:59 Dose: 34.53 mls/hr Piperacillin Sod/Tazobactam (Sod 3.375 gm/ Sodium Chloride) 100 mls @ 100 mls/ hr IVPB Q8H [facility] PRN Reason: Protocol Last Admin: 03/13/18 04:23 Dose: 100 mls/hr Diltiazem HCl 125 mg/ Sodium (Chloride) 125 mls @ 5 mls/hr IV .Q24H ONE; 5 MG/ HR PRN Reason: Protocol Stop: 03/14/18 06:55 Last Admin: 03/13/18 07:09 Dose: 5 mg/hr, 5 mls/hr Levalbuterol HCl (Xopenex) 1.25 mg INH RQ4 PRN PRN Reason: Shortness of Breath Last Admin: 03/11/18 10:43 Dose: 1.25 mg Metoprolol Succinate (Toprol Xl) 50 mg PO DAILY [facility] Last Admin: 03/13/18 06:48 Dose: 50 mg Morphine Sulfate (Morphine) 2 mg IVP Q6 PRN PRN Reason: Pain, moderate (4-7) Last Admin: 03/11/18 16:03 Dose: 2 mg Nicotine (Nicoderm Cq) 1 patch TD DAILY [facility] Last Admin: 03/12/18 08:32 Dose: 1 patch Oxycodone/Acetaminophen (Percocet 5/325 Mg Tab) 1 tab PO Q6 PRN PRN Reason: Pain, moderate (4-7) Stop: 03/15/18 23:17 Fluticasone/Salmeterol (Advair Diskus 250/50) 1 puff IH Q12 [facility] Last Admin: 03/12/18 20:21 Dose: 1 puff - Labs Labs: 03/12/18 04:50 03/12/18 04:50 PT 16.1 Seconds (9.8-13.1) H 03/08/18 13:27 INR 1.4 (0.9-1.2) H 03/08/18 13:27 APTT 30.1 Seconds (25.6-37.1) 03/08/18 13:27 - Constitutional Appears: Non-toxic, No Acute Distress, Chronically Ill - Head Exam Head Exam: ATRAUMATIC, NORMAL INSPECTION, NORMOCEPHALIC - Eye Exam Eye Exam: EOMI, Normal appearance, PERRL Pupil Exam: NORMAL ACCOMODATION, PERRL - ENT Exam ENT Exam: Mucous Membranes Moist, Normal Exam - Neck Exam Neck Exam: Full ROM, Normal Inspection. absent: Lymphadenopathy - Respiratory Exam Respiratory Exam: Clear to Ausculation Bilateral, NORMAL BREATHING PATTERN - Cardiovascular Exam Cardiovascular Exam: Tachycardia, Irregular Rhythm, +S1, +S2. absent: Murmur - GI/Abdominal Exam GI & Abdominal Exam: Soft, Normal Bowel Sounds. absent: Tenderness - Extremities Exam Extremities Exam: Full ROM, Normal Capillary Refill, Normal Inspection. absent : Joint Swelling, Pedal Edema - Back Exam Back Exam: NORMAL INSPECTION - Neurological Exam Neurological Exam: Abnormal Gait, Alert, Awake, CN II-XII Intact, Oriented x3 - Psychiatric Exam Psychiatric exam: Normal Affect, Normal Mood - Skin Skin Exam: Dry, Intact, Normal Color, Warm Assessment and Plan (1) Atrial flutter Status: Acute (2) Dyspnea Status: Acute (3) DVT prophylaxis Status: Acute (4) Leukocytosis Status: Acute (5) Lung cancer Status: Acute - Assessment and Plan (Free Text) Assessment: (1) Atrial flutter Assessment and Plan: cardizem gtt @ 10mcg, cardio aware metoprolol po icu cardioivf b jes case d/c w/ dr coronel nsr 80s noted Status: Acute (2) Dyspnea Assessment and Plan: improving, on resp tx icu care r/t tachycardia and lung ca abn cxr noted. will d/c case w/ pts onc in [place] pt comfortable off o2 Status: Acute (3) DVT prophylaxis Assessment and Plan: scd and ae hose eliquis Status: Acute (4) Leukocytosis Assessment and Plan: heme/onc, ID consult procalcitonin 3 rocephin started sputum c/s prelim blood/urine c/s negative Status: Acute (5) Lung cancer Assessment and Plan: heme/onc ?? need to xfer to [place] for tx hospice consult Status: Acute 6-hyponatremia/kalemia-being corrected by icu attending,will monitor
--- NOTE | 2018-03-13 07:53 | CP.CCUPN ---
CCU Subjective - Physician Review Events Since Last Encounter (Free Text): 03/13/18 07:51 alert and oriented, no SOB, SBP has been in low 90s and has been in and out of rapid afib 150/m, no fever, labs are still pending from this morning. CCU Objective - Vital Signs / Intake & Output Vital Signs (Last 4 hours): Vital Signs Temp Pulse Resp BP Pulse Ox 03/13/18 06:48 144 H 96/71 L 03/13/18 06:45 161 H 20 105/61 98 03/13/18 06:00 98.8 F 85 20 104/53 L 93 L 03/13/18 04:00 84 18 139/68 95 Intake and Output (Last 8hrs): Intake & Output 03/12/18 03/13/18 03/13/18 22:59 06:59 14:59 Intake Total 210 285 Output Total 300 280 Balance -90 5 Weight 167 lb Intake: IV 10 10 Intake, Piggyback 100 200 Oral 100 75 Output: Urine 300 280 Urine, Voided 300 280 Other: # Bowel Movements 1 - Physical Exam Narrative Physical Exam (Free Text): 03/13/18 07:52 P/E neck: No JVD Lungs: No ronchi or crackles Abdomen: soft, non-tender Ext; No edema Heart: S1 S2 rapid and irregular. - Medications Active Medications: Active Medications Generic Name Dose Route Start Last Admin Trade Name Freq PRN Reason Stop Dose Admin Amiodarone HCl 400 mg 03/11/18 09:00 03/11/18 08:53 Cordarone PO 400 mg DAILY TESFAYE Administration Apixaban 2.5 mg 03/08/18 21:00 03/12/18 20:21 Eliquis PO 2.5 mg Q12 TESFAYE Administration Protocol Diltiazem HCl 30 mg 03/10/18 20:30 03/10/18 20:30 Cardizem PO 30 mg Q6H TESFAYE Administration Fentanyl 1 patch 03/08/18 16:15 03/11/18 16:00 Duragesic TD 1 patch Q72H TESFAYE Administration Protocol Amiodarone HCl 450 mg/ Sodium 259 mls @ 34.53 mls/hr 03/11/18 11:30 03/11/18 11:59 Chloride IVPB 34.53 mls/hr .Q7H31M TESFAYE Administration Protocol 1 MG/MIN Piperacillin Sod/Tazobactam 100 mls @ 100 mls/hr 03/12/18 12:45 03/13/18 04: 23 Sod 3.375 gm/ Sodium Chloride IVPB 100 mls/hr Q8H TESFAYE Administration Protocol Diltiazem HCl 125 mg/ Sodium 125 mls @ 5 mls/hr 03/13/18 06:56 03/13/18 07:09 Chloride IV 03/14/18 06:55 5 mg/hr .Q24H ONE 5 mls/hr Protocol Administration 5 MG/HR Levalbuterol HCl 1.25 mg 03/11/18 01:16 03/11/18 10:43 Xopenex INH 1.25 mg RQ4 PRN Administration Shortness of Breath Metoprolol Succinate 50 mg 03/11/18 09:00 03/13/18 06:48 Toprol Xl PO 50 mg DAILY TESFAYE Administration Morphine Sulfate 2 mg 03/08/18 17:16 03/11/18 16:03 Morphine IVP 2 mg Q6 PRN Administration Pain, moderate (4-7) Nicotine 1 patch 03/09/18 09:00 03/12/18 08:32 Nicoderm Cq TD 1 patch DAILY TESFAYE Administration Oxycodone/Acetaminophen 1 tab 03/12/18 23:16 Percocet 5/325 Mg Tab PO 03/15/18 23:17 Q6 PRN Pain, moderate (4-7) Fluticasone/Salmeterol 1 puff 03/08/18 21:00 03/12/18 20:21 Advair Diskus 250/50 IH 1 puff Q12 TESFAYE Administration - Patient Studies Lab Studies: Microbiology Studies 03/08/18 14:43 Blood Culture - Preliminary Blood NO GROWTH AFTER 4 DAYS 03/08/18 14:43 Blood Culture - Preliminary Blood NO GROWTH AFTER 4 DAYS 03/09/18 07:41 Gram Stain - Final Sputum Sputum Culture - Final NORMAL ORAL MARCELINO Critical Care Progress Note - Nutrition Nutrition: Nutrition Category Date Time Status Regular Diet [DIET] Diets 03/10/18 Dinner Active Assessment/Plan - Assessment and Plan (Free Text) Assessment: (1) Atrial flutter Assessment and Plan: On Cardizem GGT now, 5 mg/h but has been in rapid a fib, will increase to 10 mg/ h , will monitor BP closely Will start IVF NS at 100 cc/h for low BP, while on Cardizem. Status: Acute (2) Dyspnea Assessment and Plan: improved, CXR reviewed, clear. r/t tachycardia and lung ca pt comfortable now Status: Acute (3) DVT prophylaxis Assessment and Plan: scd andae hose eliquis Status: Acute (4) Leukocytosis Assessment and Plan: heme/onc, ID consult procalcitonin 3 On rocephin sputum c/s prelim blood/urine c/s negative Status: Acute (5) Lung cancer Assessment and Plan: heme/onc hospice consult Status: Acute 6-Hyponatremia: Improved, labs from this AM, pending, will review.
[2018-03-13 08:32] LABS: HEMOGLOBIN 11.3 g/dL (12.0-18.0); MEAN CELL VOLUME 99.3 fl (80.0-94.0); MEAN CORPUSCULAR HEMOGLOBIN 36.1 pg (27.0-31.0); MEAN CORPUSCULAR HGB CONC 36.3 g/dL (33.0-37.0); RBC 3.14 Mil/uL (4.40-5.90); RED CELL DISTRIBUTION WIDTH 15.9 % (11.5-14.5)
[2018-03-13 08:42] LABS: WHITE BLOOD COUNT 44.9 K/uL (4.8-10.8)
[2018-03-13 08:44] LABS: ALB/GLOB RATIO 0.6 (1.0-2.1); ALBUMIN 2.5 g/dL (3.5-5.0); ALT/SGPT 46 U/L (21-72); AST/SGOT 34 U/L (17-59); BLOOD UREA NITROGEN 18 mg/dl (9-20); CALCIUM 8.9 mg/dL (8.4-10.2); GFR AFRICAN-AMERICAN > 60; GFR NON-AFRICAN AMERICAN > 60
[2018-03-13] MEDS: Fluticasone-Salmeterol 250-50mcg Diskus IH SCH ×2 (09:07→20:21)
[2018-03-13] MEDS: Levalbuterol 1.25 MG/3 ML Inhal Soln UD INH PRN ×2 (10:28→19:49)
[2018-03-13] MEDS: Potassium Chl 20 mEq in NS 1,000 ML IV SCH ×2 (10:34→20:22)
[2018-03-13] MEDS: Oxycodone/Acetaminophen 5/325 mg Tab PO PRN (18:23)
[2018-03-14] MEDS: Oxycodone/Acetaminophen 5/325 mg Tab PO PRN ×5 (00:21→23:53)
[2018-03-14] MEDS ORDERED: Esmolol 100 mg/10ml Inj IV ONE (00:47)
[2018-03-14] MEDS: Amiodarone 450 MG in Sodium Chloride 0.9% 250 ML IVPB SCH (01:04)
[2018-03-14] MEDS: Piperacillin/Tazobact 3.375 GM in Sodium Chloride 0.9% 100 ML IVPB SCH ×3 (03:30→20:18)
--- NOTE | 2018-03-14 07:14 | CP.CCUPN ---
CCU Subjective - Physician Review Events Since Last Encounter (Free Text): 03/14/18 07:12 in SR now, was on cardizem GGT, due to shortage of cardizem, switched to esmolol GGT early this morning, BP is stable with SBP in mid to high 90s, getting NS at 100 cc/h no symptoms, labs are still pending from this AM, will reviewed, will reduce IVF rate. CCU Objective - Vital Signs / Intake & Output Vital Signs (Last 4 hours): Vital Signs Temp Pulse Resp BP Pulse Ox 03/14/18 06:00 72 19 94/53 L 98 03/14/18 05:00 98.7 F 147 H 18 108/61 96 03/14/18 04:00 69 18 97/55 L 96 Intake and Output (Last 8hrs): Intake & Output 03/13/18 03/14/18 03/14/18 22:59 06:59 14:59 Intake Total 1085 850 Output Total 150 150 Balance 935 700 Weight 167 lb 14.4 oz Intake: IV 825 700 Intake, Piggyback 200 100 Oral 60 50 Output: Urine 150 150 Urine, Voided 150 150 Other: # Voids Urine, Voided 100 - Physical Exam Narrative Physical Exam (Free Text): 03/14/18 07:14 P/E Neck: No JVD Lungs: No ronchi, crackles Heart: no gallop Abdomen: soft, no -tender, Ext: No edema Neuro: No focal signs - Medications Active Medications: Active Medications Generic Name Dose Route Start Last Admin Trade Name Freq PRN Reason Stop Dose Admin Amiodarone HCl 400 mg 03/11/18 09:00 03/11/18 08:53 Cordarone PO 400 mg DAILY TESFAYE Administration Apixaban 2.5 mg 03/08/18 21:00 03/13/18 20:22 Eliquis PO 2.5 mg Q12 TESFAYE Administration Protocol Diltiazem HCl 30 mg 03/10/18 20:30 03/14/18 04:00 Cardizem PO Not Given Q6H TESFAYE Fentanyl 1 patch 03/08/18 16:15 03/11/18 16:00 Duragesic TD 1 patch Q72H TESFAYE Administration Protocol Amiodarone HCl 450 mg/ Sodium 259 mls @ 34.53 mls/hr 03/11/18 11:30 03/14/18 01:04 Chloride IVPB Not Given .Q7H31M TESFAYE Protocol 1 MG/MIN Piperacillin Sod/Tazobactam 100 mls @ 100 mls/hr 03/12/18 12:45 03/14/18 03: 30 Sod 3.375 gm/ Sodium Chloride IVPB 100 mls/hr Q8H TESFAYE Administration Protocol Potassium Chloride/Sodium Chloride 1,000 mls @ 100 mls/hr 03/13/18 08:00 20:22 Potassium Chl 20 Meq In Ns IV 03/14/18 07:59 100 mls/hr .Q10H TESFAYE Administration Esmolol HCl 2,500 mg/ IV 250 mls @ 22.72 mls/hr 03/14/18 01:15 03/14/18 05:00 SUPPLIES IV 03/14/18 12:15 50 mcg/kg/min .Q11H1M ONE 22.72 mls/hr Protocol Titration 50 MCG/KG/MIN Levalbuterol HCl 1.25 mg 03/11/18 01:16 03/13/18 19:49 Xopenex INH 1.25 mg RQ4 PRN Administration Shortness of Breath Metoprolol Succinate 50 mg 03/11/18 09:00 03/13/18 09:08 Toprol Xl PO Not Given DAILY TESFAYE Nicotine 1 patch 03/09/18 09:00 03/13/18 09:08 Nicoderm Cq TD 1 patch DAILY TESFAYE Administration Oxycodone/Acetaminophen 1 tab 03/12/18 23:16 03/14/18 00:21 Percocet 5/325 Mg Tab PO 03/15/18 23:17 1 tab Q6 PRN Administration Pain, moderate (4-7) Fluticasone/Salmeterol 1 puff 03/08/18 21:00 03/13/18 20:21 Advair Diskus 250/50 IH 1 puff Q12 TESFAYE Administration - Patient Studies Lab Studies: Microbiology Studies 03/08/18 14:43 Blood Culture - Final Blood NO GROWTH AFTER 5 DAYS Gram Stain - Final TEST NOT PERFORMED 03/08/18 14:43 Blood Culture - Final Blood NO GROWTH AFTER 5 DAYS Gram Stain - Final TEST NOT PERFORMED Lab Studies 03/13/18 03/13/18 Range/Units 08:25 08:25 WBC 44.9 H* (4.8-10.8) K/uL RBC 3.14 L (4.40-5.90) Mil/uL Hgb 11.3 L (12.0-18.0) g/dL Hct 31.2 L (35.0-51.0) % MCV 99.3 H (80.0-94.0) fl MCH 36.1 H (27.0-31.0) pg MCHC 36.3 (33.0-37.0) g/dL RDW 15.9 H (11.5-14.5) % Plt Count 241 (130-400) K/uL Sodium 131 L (132-148) mmol/l Potassium 3.5 L (3.6-5.0) MMOL/L Chloride 95 L (98-107) mmol/L Carbon Dioxide 25 (22-30) mmol/L Anion Gap 15 (10-20) BUN 18 (9-20) mg/dl Creatinine 0.5 L (0.8-1.5) mg/dl Est GFR ( Amer) > 60 Est GFR (Non-Af Amer) > 60 Random Glucose 99 (75-110) mg/dL Calcium 8.9 (8.4-10.2) mg/dL Total Bilirubin 1.3 (0.2-1.3) mg/dl AST 34 (17-59) U/L ALT 46 (21-72) U/L Alkaline Phosphatase 191 H (38-126) U/L Total Protein 6.6 (6.3-8.2) G/DL Albumin 2.5 L (3.5-5.0) g/dL Globulin 4.0 H (2.2-3.9) gm/dL Albumin/Globulin Ratio 0.6 L (1.0-2.1) Laboratory Results - last 24 hr 03/13/18 03/13/18 08:25 08:25 WBC 44.9 H* RBC 3.14 L Hgb 11.3 L Hct 31.2 L MCV 99.3 H MCH 36.1 H MCHC 36.3 RDW 15.9 H Plt Count 241 Sodium 131 L Potassium 3.5 L Chloride 95 L Carbon Dioxide 25 Anion Gap 15 BUN 18 Creatinine 0.5 L Est GFR ( Amer) > 60 Est GFR (Non-Af Amer) > 60 Random Glucose 99 Calcium 8.9 Total Bilirubin 1.3 AST 34 ALT 46 Alkaline Phosphatase 191 H Total Protein 6.6 Albumin 2.5 L Globulin 4.0 H Albumin/Globulin Ratio 0.6 L Critical Care Progress Note - Nutrition Nutrition: Nutrition Category Date Time Status Regular Diet [DIET] Diets 03/10/18 Dinner Active Assessment/Plan - Assessment and Plan (Free Text) Assessment: 1) Atrial flutter Assessment and Plan: Was on Cardizem GGT, now on esmolol GGT, will continue , pt in SR at the [facility], if remains stable, will start PO cardizem. monitoring BP closely Reduced IVF rate to 60 cc/h, NS. Status: Acute (2) Dyspnea Assessment and Plan: improved, r/t tachycardia and lung ca pt comfortable now Status: Acute (3) DVT prophylaxis Assessment and Plan: scd andae hose eliquis Status: Acute (4) Leukocytosis Assessment and Plan: heme/onc abd ID following procalcitonin 3 On rocephin sputum c/s prelim blood/urine c/s negative Status: Acute (5) Lung cancer Assessment and Plan: heme/onc hospice consult Status: Acute 6-Hyponatremia: Improved, labs from this AM, pending, will review.
[2018-03-14 07:16] LABS: HEMOGLOBIN 10.5 g/dL (12.0-18.0); MEAN CELL VOLUME 99.2 fl (80.0-94.0); MEAN CORPUSCULAR HEMOGLOBIN 34.1 pg (27.0-31.0); MEAN CORPUSCULAR HGB CONC 34.4 g/dL (33.0-37.0); RBC 3.08 Mil/uL (4.40-5.90); RED CELL DISTRIBUTION WIDTH 16.7 % (11.5-14.5)
--- NOTE | 2018-03-14 07:22 | CP.PCM.PN ---
Subjective - Date & Time of Evaluation Date of Evaluation: 03/14/18 Time of Evaluation: 07:00 - Subjective Subjective: patient is comfortable in ICU. Has periods of sinus rhythm and SVT. Has been on amio, now esmolol. (no current cardizem available) Objective - Vital Signs/Intake and Output Vital Signs (last 24 hours): Temp Pulse Resp BP Pulse Ox 98.7 F 81 19 103/52 L 98 03/14/18 05:00 03/14/18 07:15 03/14/18 07:15 03/14/18 07:15 03/14/18 07:15 Intake and Output: 03/14/18 03/14/18 06:59 18:59 Intake Total 1435 Output Total 300 Balance 1135 - Medications Medications: Current Medications Amiodarone HCl (Cordarone) 400 mg PO DAILY [facility] Last Admin: 03/11/18 08:53 Dose: 400 mg Apixaban (Eliquis) 2.5 mg PO Q12 TESFAYE PRN Reason: Protocol Last Admin: 03/13/18 20:22 Dose: 2.5 mg Diltiazem HCl (Cardizem) 30 mg PO Q6H TESFAYE Last Admin: 03/14/18 04:00 Dose: Not Given Fentanyl (Duragesic) 1 patch TD Q72H TESFAYE PRN Reason: Protocol Last Admin: 03/11/18 16:00 Dose: 1 patch Amiodarone HCl 450 mg/ Sodium (Chloride) 259 mls @ 34.53 mls/hr IVPB .Q7H31M TESFAYE; 1 MG/MIN PRN Reason: Protocol Last Admin: 03/14/18 01:04 Dose: Not Given Piperacillin Sod/Tazobactam (Sod 3.375 gm/ Sodium Chloride) 100 mls @ 100 mls/ hr IVPB Q8H TESFAYE PRN Reason: Protocol Last Admin: 03/14/18 03:30 Dose: 100 mls/hr Potassium Chloride/Sodium Chloride (Potassium Chl 20 Meq In Ns) 1,000 mls @ 100 mls/hr IV .Q10H TESFAYE Stop: 03/14/18 07:59 Last Admin: 03/13/18 20:22 Dose: 100 mls/hr Esmolol HCl 2,500 mg/ IV (SUPPLIES) 250 mls @ 22.72 mls/hr IV .Q11H1M ONE; 50 MCG/KG/MIN PRN Reason: Protocol Stop: 03/14/18 12:15 Last Titration: 03/14/18 05:00 Dose: 50 mcg/kg/min, 22.72 mls/hr Levalbuterol HCl (Xopenex) 1.25 mg INH RQ4 PRN PRN Reason: Shortness of Breath Last Admin: 03/13/18 19:49 Dose: 1.25 mg Metoprolol Succinate (Toprol Xl) 50 mg PO DAILY [facility] Last Admin: 03/13/18 09:08 Dose: Not Given Nicotine (Nicoderm Cq) 1 patch TD DAILY [facility] Last Admin: 03/13/18 09:08 Dose: 1 patch Oxycodone/Acetaminophen (Percocet 5/325 Mg Tab) 1 tab PO Q6 PRN PRN Reason: Pain, moderate (4-7) Stop: 03/15/18 23:17 Last Admin: 03/14/18 00:21 Dose: 1 tab Fluticasone/Salmeterol (Advair Diskus 250/50) 1 puff IH Q12 [facility] Last Admin: 03/13/18 20:21 Dose: 1 puff - Labs Labs: 03/13/18 08:25 03/13/18 08:25 PT 16.1 Seconds (9.8-13.1) H 03/08/18 13:27 INR 1.4 (0.9-1.2) H 03/08/18 13:27 APTT 30.1 Seconds (25.6-37.1) 03/08/18 13:27 - Constitutional Appears: Chronically Ill - Head Exam Head Exam: NORMAL INSPECTION - Eye Exam Eye Exam: Normal appearance - ENT Exam ENT Exam: Mucous Membranes Dry - Neck Exam Neck Exam: Full ROM - Respiratory Exam Respiratory Exam: Decreased Breath Sounds - Cardiovascular Exam Cardiovascular Exam: Tachycardia, Irregular Rhythm - GI/Abdominal Exam GI & Abdominal Exam: Normal Bowel Sounds - Rectal Exam Rectal Exam: Deferred - Extremities Exam Extremities Exam: absent: Pedal Edema - Back Exam Back Exam: NORMAL INSPECTION - Neurological Exam Neurological Exam: Alert - Psychiatric Exam Psychiatric exam: Normal Affect - Skin Skin Exam: Normal Color Assessment and Plan (1) Atrial flutter Assessment & Plan: difficult management. Ideally patient should be cardioverted, whoever he is DNR. In the event he has decreased ventilation with deep sedation for cardioversion, I will be unable to resuscitated/intubate him. conitnue AV thomas jes. can consider cardioversion if DNR is reversed. otherise recommend hospice/comfort measures. Status: Acute
[2018-03-14 07:25] LABS: ALB/GLOB RATIO 0.6 (1.0-2.1); ALBUMIN 2.3 g/dL (3.5-5.0); ALT/SGPT 31 U/L (21-72); AST/SGOT 29 U/L (17-59); BLOOD UREA NITROGEN 17 mg/dl (9-20); CALCIUM 8.6 mg/dL (8.4-10.2); GFR AFRICAN-AMERICAN > 60; GFR NON-AFRICAN AMERICAN > 60
[2018-03-14] MEDS ORDERED: POTASSIUM CHL IV SCH (07:30)
[2018-03-14] MEDS ORDERED: POTASSIUM CHLORIDE IV SCH (07:30)
[2018-03-14] MEDS ORDERED: NS IV SCH (07:30)
[2018-03-14 07:34] LABS: WHITE BLOOD COUNT 48.6 K/uL (4.8-10.8)
[2018-03-14] MEDS: Fluticasone-Salmeterol 250-50mcg Diskus IH SCH ×2 (08:56→20:19)
[2018-03-14] MEDS: Metoprolol Succinate 50 mg XL Tab PO SCH (08:58)
[2018-03-14] MEDS: Potassium Chl 20 mEq in NS 1,000 ML IV SCH (08:58)
--- NOTE | 2018-03-14 09:42 | CP.PCM.PN ---
Subjective - Date & Time of Evaluation Date of Evaluation: 03/14/18 Time of Evaluation: 09:40 - Subjective Subjective: pt doing well. no f/c, n/v/d. bw noted. still going back and forth bw nsr 80s and aflutter 130-160 cardio/icu aware. pt on esmolol gtt now pt states will meet w/ hospice rep in am. resps even and unlabored. pain controlled Objective - Vital Signs/Intake and Output Vital Signs (last 24 hours): Temp Pulse Resp BP Pulse Ox 97.7 F 137 H 22 102/57 L 99 03/14/18 07:37 03/14/18 08:58 03/14/18 08:56 03/14/18 08:58 03/14/18 08:56 Intake and Output: 03/14/18 03/14/18 06:59 18:59 Intake Total 1435 244 Output Total 300 100 Balance 1135 144 - Medications Medications: Current Medications Amiodarone HCl (Cordarone) 400 mg PO DAILY [facility] Last Admin: 03/11/18 08:53 Dose: 400 mg Apixaban (Eliquis) 2.5 mg PO Q12 TESFAYE PRN Reason: Protocol Last Admin: 03/14/18 08:57 Dose: 2.5 mg Diltiazem HCl (Cardizem) 30 mg PO Q6H TESFAYE Last Admin: 03/14/18 08:56 Dose: 30 mg Fentanyl (Duragesic) 1 patch TD Q72H TESFAYE PRN Reason: Protocol Last Admin: 03/11/18 16:00 Dose: 1 patch Amiodarone HCl 450 mg/ Sodium (Chloride) 259 mls @ 34.53 mls/hr IVPB .Q7H31M TESFAYE; 1 MG/MIN PRN Reason: Protocol Last Admin: 03/14/18 01:04 Dose: Not Given Piperacillin Sod/Tazobactam (Sod 3.375 gm/ Sodium Chloride) 100 mls @ 100 mls/ hr IVPB Q8H TESFAYE PRN Reason: Protocol Last Admin: 03/14/18 03:30 Dose: 100 mls/hr Esmolol HCl 2,500 mg/ IV (SUPPLIES) 250 mls @ 22.72 mls/hr IV .Q11H1M ONE; 50 MCG/KG/MIN PRN Reason: Protocol Stop: 03/14/18 12:15 Last Titration: 03/14/18 05:00 Dose: 50 mcg/kg/min, 22.72 mls/hr Potassium Chloride/Sodium Chloride (Potassium Chl 20 Meq In Ns) 1,000 mls @ 60 mls/hr IV .[id number] [facility] Stop: 03/15/18 07:22 Last Admin: 03/14/18 08:58 Dose: 60 mls/hr Levalbuterol HCl (Xopenex) 1.25 mg INH RQ4 PRN PRN Reason: Shortness of Breath Last Admin: 03/13/18 19:49 Dose: 1.25 mg Metoprolol Succinate (Toprol Xl) 50 mg PO DAILY [facility] Last Admin: 03/14/18 08:58 Dose: 50 mg Nicotine (Nicoderm Cq) 1 patch TD DAILY [facility] Last Admin: 03/14/18 08:57 Dose: 1 patch Oxycodone/Acetaminophen (Percocet 5/325 Mg Tab) 1 tab PO Q6 PRN PRN Reason: Pain, moderate (4-7) Stop: 03/15/18 23:17 Last Admin: 03/14/18 00:21 Dose: 1 tab Fluticasone/Salmeterol (Advair Diskus 250/50) 1 puff IH Q12 [facility] Last Admin: 03/14/18 08:56 Dose: 1 puff - Labs Labs: 03/14/18 07:00 03/14/18 07:00 PT 16.1 Seconds (9.8-13.1) H 03/08/18 13:27 INR 1.4 (0.9-1.2) H 03/08/18 13:27 APTT 30.1 Seconds (25.6-37.1) 03/08/18 13:27 - Constitutional Appears: Non-toxic, No Acute Distress, Chronically Ill - Head Exam Head Exam: ATRAUMATIC, NORMAL INSPECTION, NORMOCEPHALIC - Eye Exam Eye Exam: EOMI, Normal appearance, PERRL Pupil Exam: NORMAL ACCOMODATION, PERRL - ENT Exam ENT Exam: Mucous Membranes Moist, Normal Exam - Neck Exam Neck Exam: Full ROM, Normal Inspection. absent: Lymphadenopathy - Respiratory Exam Respiratory Exam: Clear to Ausculation Bilateral, NORMAL BREATHING PATTERN - Cardiovascular Exam Cardiovascular Exam: REGULAR RHYTHM, RRR, +S1, +S2. absent: Murmur - GI/Abdominal Exam GI & Abdominal Exam: Soft, Normal Bowel Sounds. absent: Tenderness - Extremities Exam Extremities Exam: Full ROM, Normal Capillary Refill, Normal Inspection. absent : Joint Swelling, Pedal Edema - Back Exam Back Exam: NORMAL INSPECTION - Neurological Exam Neurological Exam: Alert, Awake, CN II-XII Intact, Normal Gait, Oriented x3 - Psychiatric Exam Psychiatric exam: Normal Affect, Normal Mood - Skin Skin Exam: Dry, Intact, Normal Color, Warm Assessment and Plan (1) Atrial flutter Status: Acute (2) Dyspnea Status: Acute (3) DVT prophylaxis Status: Acute (4) Leukocytosis Status: Acute (5) Lung cancer Status: Acute - Assessment and Plan (Free Text) Assessment: (1) Atrial flutter Assessment and Plan: pt now on esmolol, rate and rhythm controlled. per rn pt still has rapid aflutter runs icu cardio, ivf case d/c w/ dr coronel nsr 80s noted Status: Acute (2) Dyspnea Assessment and Plan: improving, on resp tx icu care r/t tachycardia and lung ca abn cxr noted. d/c case w/ pts onc in [place], nothing to add to POC pt comfortable off o2 Status: Acute (3) DVT prophylaxis Assessment and Plan: scd and ae hose eliquis Status: Acute (4) Leukocytosis Assessment and Plan: heme/onc, ID consult procalcitonin 3 rocephin started sputum c/s prelim blood/urine c/s negative per dr hanson-likely r/t cancer changes/bone marrow irritation/inflammation Status: Acute (5) Lung cancer Assessment and Plan: heme/onc ?? need to xfer to [place] for tx hospice consult Status: Acute 6-hyponatremia/kalemia-being corrected by icu attending,will monitor, corrected
--- NOTE | 2018-03-14 11:34 | CP.PCM.PN ---
Subjective - Date & Time of Evaluation Date of Evaluation: 03/14/18 Time of Evaluation: 09:00 - Subjective Subjective: afeb on IV antibiotics- no new cultures for possible hospice in AM IV rx to cont for now Objective - Vital Signs/Intake and Output Vital Signs (last 24 hours): Temp Pulse Resp BP Pulse Ox 97.7 F 76 16 100/53 L 97 03/14/18 07:37 03/14/18 10:00 03/14/18 10:00 03/14/18 10:00 03/14/18 10:00 Intake and Output: 03/14/18 03/14/18 06:59 18:59 Intake Total 1435 408 Output Total 300 100 Balance 1135 308 - Medications Medications: Current Medications Amiodarone HCl (Cordarone) 400 mg PO DAILY [facility] Last Admin: 03/11/18 08:53 Dose: 400 mg Apixaban (Eliquis) 2.5 mg PO Q12 TESFAYE PRN Reason: Protocol Last Admin: 03/14/18 08:57 Dose: 2.5 mg Diltiazem HCl (Cardizem) 30 mg PO Q6H TESFAYE Last Admin: 03/14/18 08:56 Dose: 30 mg Fentanyl (Duragesic) 1 patch TD Q72H TESFAYE PRN Reason: Protocol Last Admin: 03/11/18 16:00 Dose: 1 patch Amiodarone HCl 450 mg/ Sodium (Chloride) 259 mls @ 34.53 mls/hr IVPB .Q7H31M TESFAYE; 1 MG/MIN PRN Reason: Protocol Last Admin: 03/14/18 01:04 Dose: Not Given Piperacillin Sod/Tazobactam (Sod 3.375 gm/ Sodium Chloride) 100 mls @ 100 mls/ hr IVPB Q8H TESFAYE PRN Reason: Protocol Last Admin: 03/14/18 03:30 Dose: 100 mls/hr Esmolol HCl 2,500 mg/ IV (SUPPLIES) 250 mls @ 22.72 mls/hr IV .Q11H1M ONE; 50 MCG/KG/MIN PRN Reason: Protocol Stop: 03/14/18 12:15 Last Titration: 03/14/18 05:00 Dose: 50 mcg/kg/min, 22.72 mls/hr Potassium Chloride/Sodium Chloride (Potassium Chl 20 Meq In Ns) 1,000 mls @ 60 mls/hr IV .[id number] [facility] Stop: 03/15/18 07:22 Last Admin: 03/14/18 08:58 Dose: 60 mls/hr Levalbuterol HCl (Xopenex) 1.25 mg INH RQ4 PRN PRN Reason: Shortness of Breath Last Admin: 03/13/18 19:49 Dose: 1.25 mg Metoprolol Succinate (Toprol Xl) 50 mg PO DAILY [facility] Last Admin: 03/14/18 08:58 Dose: 50 mg Nicotine (Nicoderm Cq) 1 patch TD DAILY [facility] Last Admin: 03/14/18 08:57 Dose: 1 patch Oxycodone/Acetaminophen (Percocet 5/325 Mg Tab) 1 tab PO Q6 PRN PRN Reason: Pain, moderate (4-7) Stop: 03/15/18 23:17 Last Admin: 03/14/18 11:01 Dose: 1 tab Fluticasone/Salmeterol (Advair Diskus 250/50) 1 puff IH Q12 [facility] Last Admin: 03/14/18 08:56 Dose: 1 puff - Labs Labs: 03/14/18 07:00 03/14/18 07:00 PT 16.1 Seconds (9.8-13.1) H 03/08/18 13:27 INR 1.4 (0.9-1.2) H 03/08/18 13:27 APTT 30.1 Seconds (25.6-37.1) 03/08/18 13:27 - Constitutional Appears: Non-toxic, Chronically Ill - Head Exam Head Exam: NORMOCEPHALIC - Eye Exam Eye Exam: PERRL - ENT Exam ENT Exam: Normal External Ear Exam - Neck Exam Neck Exam: absent: Lymphadenopathy - Respiratory Exam Respiratory Exam: Decreased Breath Sounds - Cardiovascular Exam Cardiovascular Exam: REGULAR RHYTHM - GI/Abdominal Exam GI & Abdominal Exam: Distended, Soft - Rectal Exam Rectal Exam: Deferred - Exam Exam: NORMAL INSPECTION - Extremities Exam Extremities Exam: absent: Pedal Edema - Back Exam Back Exam: absent: CVA tenderness (L), CVA tenderness (R) - Neurological Exam Neurological Exam: Alert, Awake - Psychiatric Exam Psychiatric exam: Depressed Assessment and Plan (1) Leukocytosis (leucocytosis) Status: Acute (2) Atrial flutter Status: Acute (3) Dyspnea Status: Acute (4) Metastatic cancer Status: Acute - Assessment and Plan (Free Text) Assessment: cont iv rx for now wbc trending down no new positive cultures
[2018-03-14] MEDS: Levalbuterol 1.25 MG/3 ML Inhal Soln UD INH PRN (14:40)
--- NOTE | 2018-03-14 21:12 | CP.PCM.PN ---
Subjective - Date & Time of Evaluation Date of Evaluation: 03/13/18 Time of Evaluation: 14:00 - Subjective Subjective: Feels short of breath. Objective - Vital Signs/Intake and Output Vital Signs (last 24 hours): Temp Pulse Resp BP Pulse Ox 98.1 F 71 24 96/56 L 95 03/14/18 20:00 03/14/18 20:18 03/14/18 20:00 03/14/18 20:18 03/14/18 20:00 Intake and Output: 03/14/18 03/15/18 18:59 06:59 Intake Total 1226 60 Output Total 300 Balance 926 60 - Medications Medications: Current Medications Amiodarone HCl (Cordarone) 400 mg PO DAILY [facility] Last Admin: 03/11/18 08:53 Dose: 400 mg Apixaban (Eliquis) 2.5 mg PO Q12 [facility] PRN Reason: Protocol Last Admin: 03/14/18 20:18 Dose: 2.5 mg Diltiazem HCl (Cardizem) 30 mg PO Q6H [facility] Last Admin: 03/14/18 20:18 Dose: 30 mg Fentanyl (Duragesic) 1 patch TD Q72H [facility] PRN Reason: Protocol Last Admin: 03/14/18 20:24 Dose: 1 patch Amiodarone HCl 450 mg/ Sodium (Chloride) 259 mls @ 34.53 mls/hr IVPB .Q7H31M [facility]; 1 MG/MIN PRN Reason: Protocol Last Admin: 03/14/18 01:04 Dose: Not Given Piperacillin Sod/Tazobactam (Sod 3.375 gm/ Sodium Chloride) 100 mls @ 100 mls/ hr IVPB Q8H [facility] PRN Reason: Protocol Last Admin: 03/14/18 20:18 Dose: 100 mls/hr Potassium Chloride/Sodium Chloride (Potassium Chl 20 Meq In Ns) 1,000 mls @ 60 mls/hr IV .[id number] [facility] Stop: 03/15/18 07:22 Last Admin: 03/14/18 08:58 Dose: 60 mls/hr Esmolol HCl 2,500 mg/ Sodium (Chloride) 260 mls @ 23.76 mls/hr IV .[id number] ONE ; 50 MCG/KG/MIN PRN Reason: Protocol Stop: 03/14/18 20:44 Levalbuterol HCl (Xopenex) 1.25 mg INH RQ4 PRN PRN Reason: Shortness of Breath Last Admin: 03/14/18 14:40 Dose: 1.25 mg Megestrol Acetate (Megace) 400 mg PO DAILY [facility] Metoprolol Succinate (Toprol Xl) 50 mg PO DAILY [facility] Last Admin: 03/14/18 08:58 Dose: 50 mg Nicotine (Nicoderm Cq) 1 patch TD DAILY [facility] Last Admin: 03/14/18 08:57 Dose: 1 patch Oxycodone/Acetaminophen (Percocet 5/325 Mg Tab) 1 tab PO Q6 PRN PRN Reason: Pain, moderate (4-7) Stop: 03/15/18 23:17 Last Admin: 03/14/18 16:58 Dose: 1 tab Fluticasone/Salmeterol (Advair Diskus 250/50) 1 puff IH Q12 [facility] Last Admin: 03/14/18 20:19 Dose: 1 puff - Labs Labs: 03/14/18 07:00 03/14/18 07:00 PT 16.1 Seconds (9.8-13.1) H 03/08/18 13:27 INR 1.4 (0.9-1.2) H 03/08/18 13:27 APTT 30.1 Seconds (25.6-37.1) 03/08/18 13:27 - Head Exam Head Exam: ATRAUMATIC - Eye Exam Eye Exam: Normal appearance - ENT Exam ENT Exam: Mucous Membranes Dry - Respiratory Exam Respiratory Exam: Respiratory Distress - Cardiovascular Exam Cardiovascular Exam: +S1, +S2 - GI/Abdominal Exam GI & Abdominal Exam: Normal Bowel Sounds - Extremities Exam Extremities Exam: Normal Inspection Assessment and Plan (1) Leukocytosis (leucocytosis) Assessment & Plan: on antibiotics likely reactive component from malignancy Status: Acute (2) Anemia Assessment & Plan: chronic disease from malignancy Status: Acute (3) Metastatic cancer Assessment & Plan: stage IV was on palliative radiotherapy supportive care/hospice evaluation DNR/DNI Status: Acute
[2018-03-15] MEDS: Potassium Chl 20 mEq in NS 1,000 ML IV SCH
[2018-03-15] MEDS: Piperacillin/Tazobact 3.375 GM in Sodium Chloride 0.9% 100 ML IVPB SCH ×3 (04:58→20:26)
[2018-03-15] MEDS: Oxycodone/Acetaminophen 5/325 mg Tab PO PRN ×3 (05:14→18:24)
[2018-03-15 05:50] LABS: HEMOGLOBIN 10.7 g/dL (12.0-18.0); MEAN CELL VOLUME 101.4 fl (80.0-94.0); MEAN CORPUSCULAR HEMOGLOBIN 34.6 pg (27.0-31.0); MEAN CORPUSCULAR HGB CONC 34.1 g/dL (33.0-37.0); RBC 3.09 Mil/uL (4.40-5.90); RED CELL DISTRIBUTION WIDTH 16.8 % (11.5-14.5)
[2018-03-15 06:01] LABS: WHITE BLOOD COUNT 50.9 K/uL (4.8-10.8)
[2018-03-15 06:02] LABS: ALB/GLOB RATIO 0.6 (1.0-2.1); ALBUMIN 2.3 g/dL (3.5-5.0); ALT/SGPT 30 U/L (21-72); AST/SGOT 27 U/L (17-59); BLOOD UREA NITROGEN 16 mg/dl (9-20); CALCIUM 8.9 mg/dL (8.4-10.2); GFR AFRICAN-AMERICAN > 60; GFR NON-AFRICAN AMERICAN > 60
--- NOTE | 2018-03-15 07:49 | CP.PCM.PN ---
Subjective - Date & Time of Evaluation Date of Evaluation: 03/15/18 Time of Evaluation: 07:48 - Subjective Subjective: pt remains as assesed. no fcnvd. jose miguel 80s at present. stil with decr appetite case dc with pts , estella and dr kearns hospice eval today Objective - Vital Signs/Intake and Output Vital Signs (last 24 hours): Temp Pulse Resp BP Pulse Ox 98 F 83 17 114/56 L 97 03/15/18 05:04 03/15/18 06:00 03/15/18 06:00 03/15/18 06:00 03/15/18 06:00 Intake and Output: 03/15/18 03/15/18 06:59 18:59 Intake Total 865 Output Total 300 Balance 565 - Medications Medications: Current Medications Amiodarone HCl (Cordarone) 400 mg PO DAILY [facility] Last Admin: 03/11/18 08:53 Dose: 400 mg Apixaban (Eliquis) 2.5 mg PO Q12 [facility] PRN Reason: Protocol Last Admin: 03/14/18 20:18 Dose: 2.5 mg Diltiazem HCl (Cardizem) 30 mg PO Q6H [facility] Last Admin: 03/15/18 02:30 Dose: 30 mg Fentanyl (Duragesic) 1 patch TD Q72H [facility] PRN Reason: Protocol Last Admin: 03/14/18 20:24 Dose: 1 patch Amiodarone HCl 450 mg/ Sodium (Chloride) 259 mls @ 34.53 mls/hr IVPB .Q7H31M [facility]; 1 MG/MIN PRN Reason: Protocol Last Admin: 03/14/18 01:04 Dose: Not Given Piperacillin Sod/Tazobactam (Sod 3.375 gm/ Sodium Chloride) 100 mls @ 100 mls/ hr IVPB Q8H [facility] PRN Reason: Protocol Last Admin: 03/15/18 04:58 Dose: 100 mls/hr Esmolol HCl 2,500 mg/ IV (SUPPLIES) 250 mls @ 22.84 mls/hr IV .[id number] ONE; 50 MCG/KG/MIN PRN Reason: Protocol Stop: 03/15/18 10:56 Levalbuterol HCl (Xopenex) 1.25 mg INH RQ4 PRN PRN Reason: Shortness of Breath Last Admin: 03/14/18 14:40 Dose: 1.25 mg Megestrol Acetate (Megace) 400 mg PO DAILY [facility] Metoprolol Succinate (Toprol Xl) 50 mg PO DAILY [facility] Last Admin: 03/14/18 08:58 Dose: 50 mg Nicotine (Nicoderm Cq) 1 patch TD DAILY [facility] Last Admin: 03/14/18 08:57 Dose: 1 patch Oxycodone/Acetaminophen (Percocet 5/325 Mg Tab) 1 tab PO Q4 PRN PRN Reason: Pain, moderate (4-7) Stop: 03/18/18 09:01 Last Admin: 03/15/18 05:14 Dose: 1 tab Fluticasone/Salmeterol (Advair Diskus 250/50) 1 puff IH Q12 [facility] Last Admin: 03/14/18 20:19 Dose: 1 puff - Labs Labs: 03/15/18 04:25 03/15/18 04:25 PT 16.1 Seconds (9.8-13.1) H 03/08/18 13:27 INR 1.4 (0.9-1.2) H 03/08/18 13:27 APTT 30.1 Seconds (25.6-37.1) 03/08/18 13:27 - Constitutional Appears: Non-toxic, No Acute Distress, Chronically Ill - Head Exam Head Exam: ATRAUMATIC, NORMAL INSPECTION, NORMOCEPHALIC - Eye Exam Eye Exam: EOMI, Normal appearance, PERRL Pupil Exam: NORMAL ACCOMODATION, PERRL - ENT Exam ENT Exam: Mucous Membranes Moist, Normal Exam - Neck Exam Neck Exam: Full ROM, Normal Inspection. absent: Lymphadenopathy - Respiratory Exam Respiratory Exam: Clear to Ausculation Bilateral, NORMAL BREATHING PATTERN - Cardiovascular Exam Cardiovascular Exam: REGULAR RHYTHM, RRR, +S1, +S2. absent: Murmur - GI/Abdominal Exam GI & Abdominal Exam: Soft, Normal Bowel Sounds. absent: Tenderness - Extremities Exam Extremities Exam: Full ROM, Normal Capillary Refill, Normal Inspection. absent : Joint Swelling, Pedal Edema - Back Exam Back Exam: NORMAL INSPECTION - Neurological Exam Neurological Exam: Alert, Awake, CN II-XII Intact, Normal Gait, Oriented x3 - Psychiatric Exam Psychiatric exam: Normal Affect, Normal Mood - Skin Skin Exam: Dry, Intact, Normal Color, Warm Assessment and Plan (1) Atrial flutter Status: Acute (2) Dyspnea Status: Acute (3) DVT prophylaxis Status: Acute (4) Leukocytosis Status: Acute (5) Lung cancer Status: Acute - Assessment and Plan (Free Text) Assessment: (1) Atrial flutter Assessment and Plan: pt now on esmolol, rate and rhythm controlled. per rn pt still has rapid aflutter runs icu cardio, ivf case d/c w/ dr coronel nsr 80s noted Status: Acute (2) Dyspnea Assessment and Plan: improving, on resp tx icu care r/t tachycardia and lung ca abn cxr noted. d/c case w/ pts onc in [place], nothing to add to POC pt comfortable off o2 Status: Acute (3) DVT prophylaxis Assessment and Plan: scd and ae hose eliquis Status: Acute (4) Leukocytosis Assessment and Plan: heme/onc, ID consult procalcitonin 3 rocephin started sputum c/s prelim blood/urine c/s negative per dr hanson-likely r/t cancer changes/bone marrow irritation/inflammation Status: Acute (5) Lung cancer Assessment and Plan: heme/onc ?? need to xfer to [place] for tx hospice consult today Status: Acute 6-hyponatremia/kalemia-being corrected by icu attending,will monitor, corrected
[2018-03-15] MEDS: Fluticasone-Salmeterol 250-50mcg Diskus IH SCH ×2 (08:06→20:27)
[2018-03-15] MEDS: Metoprolol Succinate 50 mg XL Tab PO SCH (08:09)
[2018-03-15] MEDS: Megestrol Acetate 40 mg/ml Cup PO SCH (12:51)
[2018-03-15] MEDS: Potassium Chl 40 mEq in D5-NS 1,000 ML IV SCH (21:06)
--- NOTE | 2018-03-15 22:45 | PN ---
DATE: 03/15/2018 CRITICAL CARE PROGRESS NOTE LOCATION: The patient in ICU bed 426. TIME SPENT: 25 minutes. The patient is seen and evaluated at the bedside. Past medical, surgical and social history reviewed. SUBJECTIVE: A 67-year-old male reformed smoker with chronic obstructive pulmonary disease; stage IV metastatic lung cancer, metastatic to brain, chest wall, elbow, hip. Currently undergoing radiation treatment at [facility], admitted with increasing shortness of breath secondary to an exacerbation of COPD. Overnight telemetry, sinus tachycardia, on Cardizem and metoprolol. This morning, alert and awake, follows commands appropriate. Complaining of pain in the left chest with palpitation, coughing of nonproductive, reduced appetite. PHYSICAL EXAMINATION: VITAL SIGNS: Temperature 98, heart rate 84 to 153, blood pressure 109/66, mean arterial pressure 80, respiratory rate 16 to 20 thoracoabdominal, saturation 97% on 2 liters nasal cannula. Intake 2091, output 600, positive balance of 1491. Weight not recorded. HEAD, EYES, EARS, NOSE AND THROAT: Pupils are reactive. Conjunctivae pink. Sclerae are white. NECK: Supple. Trachea central. CHEST: Bilateral breath sounds. Expiration prolonged. Scattered rhonchi. HEART: Rhythm regular. S1, S2 rapid. No audible murmur. ABDOMEN: Bowel sounds present. Soft. EXTREMITIES: No clubbing, cyanosis or edema. NEUROLOGIC EXAMINATION: Nonfocal. CURRENT MEDICATIONS: Amiodarone 400 mg p.o. daily, Eliquis 2.5 mg every 12 hours, Cardizem 60 mg p.o. every 6 hours, Duragesic patch 75 mcg every 72 hours, Xopenex 1.25 mg every 4 hours, Megace 400 mg p.o. daily, Toprol-XL 50 mg p.o. daily, nicotine patch daily, Percocet 5/325 mg every 4 hours p.r.n., Zosyn 3.375 gm IV every 8 hours, Advair Diskus one puff every 12 hours. IMPRESSION: 1. Neuro: Alert, awake, oriented to name, place and time. Neuro imaging showed metastasis to the brain and being multiple. 2. Pulmonary: Metastatic lung cancer stage IV, metastasis to the brain, bone and liver, currently undergoing radiation treatment. 3. Cardiac: Supraventricular tachycardia/atrial flutter, on Cardizem, beta jes, Eliquis 2.5 mg every 12 hours. Still with tachycardia, Cardizem dose increased to 60 mg every 6 hours. 4. Hematology: Leukocytosis, empirically on Zosyn for obstructive pneumonia. 5. Renal: Hypernatremia, resolved. AST and ALT within normal limits. 6. Endocrine: No acute abnormalities. Maintain blood sugar below 180. PLAN: Prognosis remains guarded. Noted PMD's evaluation and recommendation for hospice care. Hospice care evaluation pending. Continue DVT and GI prophylaxis. Tu Pal MD
[2018-03-16] MEDS: Oxycodone/Acetaminophen 5/325 mg Tab PO PRN ×2 (04:18→08:39)
[2018-03-16] MEDS: Piperacillin/Tazobact 3.375 GM in Sodium Chloride 0.9% 100 ML IVPB SCH ×3 (04:19→21:09)
[2018-03-16 05:36] LABS: HEMOGLOBIN 10.7 g/dL (12.0-18.0); MEAN CELL VOLUME 101.1 fl (80.0-94.0); MEAN CORPUSCULAR HEMOGLOBIN 36.9 pg (27.0-31.0); MEAN CORPUSCULAR HGB CONC 36.5 g/dL (33.0-37.0); RBC 2.89 Mil/uL (4.40-5.90); RED CELL DISTRIBUTION WIDTH 16.5 % (11.5-14.5)
[2018-03-16 05:43] LABS: ALB/GLOB RATIO 0.6 (1.0-2.1); ALBUMIN 2.4 g/dL (3.5-5.0); ALT/SGPT 27 U/L (21-72); AST/SGOT 22 U/L (17-59); BLOOD UREA NITROGEN 16 mg/dl (9-20); CALCIUM 9.1 mg/dL (8.4-10.2); GFR AFRICAN-AMERICAN > 60; GFR NON-AFRICAN AMERICAN > 60
[2018-03-16 05:46] LABS: WHITE BLOOD COUNT 49.7 K/uL (4.8-10.8)
--- NOTE | 2018-03-16 07:26 | CP.PCM.PN ---
Subjective - Date & Time of Evaluation Date of Evaluation: 03/16/18 Time of Evaluation: 07:26 - Subjective Subjective: pt remains as assessed. no f/c, n/v/d. bw noted. heart rate/rhythm still labile. alutter in 160s noted then pt broke to nsr 60s remains on esmolol pt signed onto hospice but has house problems-broken water pipe- and will need to be repaired prior to dc Objective - Vital Signs/Intake and Output Vital Signs (last 24 hours): Temp Pulse Resp BP Pulse Ox 97.6 F 67 17 98/55 L 96 03/16/18 05:00 03/16/18 06:00 03/16/18 06:00 03/16/18 06:00 03/16/18 06:00 Intake and Output: 03/16/18 03/16/18 06:59 18:59 Intake Total 986 Output Total 250 Balance 736 - Medications Medications: Current Medications Amiodarone HCl (Cordarone) 400 mg PO DAILY [facility] Last Admin: 03/11/18 08:53 Dose: 400 mg Apixaban (Eliquis) 2.5 mg PO Q12 [facility] PRN Reason: Protocol Last Admin: 03/15/18 20:26 Dose: 2.5 mg Diltiazem HCl (Cardizem) 60 mg PO Q6 [facility] Last Admin: 03/16/18 04:18 Dose: 60 mg Fentanyl (Duragesic) 1 patch TD Q72H [facility] PRN Reason: Protocol Last Admin: 03/14/18 20:24 Dose: 1 patch Amiodarone HCl 450 mg/ Sodium (Chloride) 259 mls @ 34.53 mls/hr IVPB .Q7H31M [facility]; 1 MG/MIN PRN Reason: Protocol Last Admin: 03/14/18 01:04 Dose: Not Given Piperacillin Sod/Tazobactam (Sod 3.375 gm/ Sodium Chloride) 100 mls @ 100 mls/ hr IVPB Q8H [facility] PRN Reason: Protocol Last Admin: 03/16/18 04:19 Dose: 100 mls/hr Potassium Chloride/Dextrose/Sod Cl (D5-Ns1l+40meq Kcl) 1,000 mls @ 60 mls/hr IV .[id number] [facility] Stop: 03/16/18 20:50 Last Admin: 03/15/18 21:06 Dose: 60 mls/hr Levalbuterol HCl (Xopenex) 1.25 mg INH RQ4 PRN PRN Reason: Shortness of Breath Last Admin: 03/14/18 14:40 Dose: 1.25 mg Megestrol Acetate (Megace) 400 mg PO DAILY [facility] Last Admin: 03/15/18 12:51 Dose: 400 mg Metoprolol Succinate (Toprol Xl) 50 mg PO DAILY [facility] Last Admin: 03/15/18 08:09 Dose: 50 mg Nicotine (Nicoderm Cq) 1 patch TD DAILY [facility] Last Admin: 03/15/18 08:07 Dose: 1 patch Oxycodone/Acetaminophen (Percocet 5/325 Mg Tab) 1 tab PO Q4 PRN PRN Reason: Pain, moderate (4-7) Stop: 03/18/18 09:01 Last Admin: 03/16/18 04:18 Dose: 1 tab Fluticasone/Salmeterol (Advair Diskus 250/50) 1 puff IH Q12 [facility] Last Admin: 03/15/18 20:27 Dose: 1 puff - Labs Labs: 03/16/18 04:35 03/16/18 04:35 PT 16.1 Seconds (9.8-13.1) H 03/08/18 13:27 INR 1.4 (0.9-1.2) H 03/08/18 13:27 APTT 30.1 Seconds (25.6-37.1) 03/08/18 13:27 - Constitutional Appears: Non-toxic, No Acute Distress, Chronically Ill - Head Exam Head Exam: ATRAUMATIC, NORMAL INSPECTION, NORMOCEPHALIC - Eye Exam Eye Exam: EOMI, Normal appearance, PERRL Pupil Exam: NORMAL ACCOMODATION, PERRL - ENT Exam ENT Exam: Mucous Membranes Moist, Normal Exam - Neck Exam Neck Exam: Full ROM, Normal Inspection. absent: Lymphadenopathy - Respiratory Exam Respiratory Exam: Clear to Ausculation Bilateral, NORMAL BREATHING PATTERN Additional comments: r base rhonchi - Cardiovascular Exam Cardiovascular Exam: Tachycardia, Irregular Rhythm, +S1, +S2. absent: Murmur - GI/Abdominal Exam GI & Abdominal Exam: Soft, Normal Bowel Sounds. absent: Tenderness - Extremities Exam Extremities Exam: Full ROM, Normal Capillary Refill, Normal Inspection. absent : Joint Swelling, Pedal Edema - Back Exam Back Exam: NORMAL INSPECTION - Neurological Exam Neurological Exam: Alert, Awake, CN II-XII Intact, Normal Gait, Oriented x3 - Psychiatric Exam Psychiatric exam: Normal Affect, Normal Mood - Skin Skin Exam: Dry, Intact, Normal Color, Warm Assessment and Plan (1) Atrial flutter Status: Acute (2) Dyspnea Status: Acute (3) DVT prophylaxis Status: Acute (4) Leukocytosis Status: Acute (5) Lung cancer Status: Acute - Assessment and Plan (Free Text) Assessment: (1) Atrial flutter Assessment and Plan: pt now on esmolol, rate and rhythm controlled. per rn pt still has rapid aflutter runs icu cardio, ivf case d/c w/ dr coronel nsr 80s noted Status: Acute (2) Dyspnea Assessment and Plan: improving, on resp tx icu care r/t tachycardia and lung ca abn cxr noted. d/c case w/ pts onc in [place], nothing to add to POC pt comfortable off o2 Status: Acute (3) DVT prophylaxis Assessment and Plan: scd and ae hose eliquis Status: Acute (4) Leukocytosis Assessment and Plan: heme/onc, ID consult procalcitonin 3 rocephin started sputum c/s prelim blood/urine c/s negative per dr hanson-likely r/t cancer changes/bone marrow irritation/inflammation Status: Acute (5) Lung cancer Assessment and Plan: heme/onc ?? need to xfer to [place] for tx hospice consult today Status: Acute 6-hyponatremia/kalemia-being corrected by icu attending,will monitor, corrected pt signed onto hospitce but is unable to go home until tomorrow r/t broken water pipe
[2018-03-16] MEDS ORDERED: Esmolol 2,500 MG in Sodium Chloride 0.9% 250 ML IV ONE ×2 (08:00→21:23)
[2018-03-16] MEDS: Fluticasone-Salmeterol 250-50mcg Diskus IH SCH ×3 (08:34→22:16)
[2018-03-16] MEDS: Metoprolol Succinate 50 mg XL Tab PO SCH (08:36)
[2018-03-16] MEDS: Megestrol Acetate 40 mg/ml Cup PO SCH (08:36)
--- NOTE | 2018-03-16 14:20 | PQF ---
PROVIDER RESPONSE TEXT: Sepsis appears to be r/o. 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 Rule out Sepsis is documented in the Medical Record. Please clarify whether: -- Patient has sepsis- Please document confirmed, suspected or probable causative organism if known 2. Please document confirmed, suspected or probable localized infection OR: Please clarify if sepsi s is related to a device 3. Please clarify if sepsis was present on admission OR -- Sepsis was ruled out (include corresponding diagnosis for patient?s clinical picture and treatm ent) -- Other, please specify WBC:35.4->42.1->32.5 Pulse: 110->110->112 B/P:74/37->81/53->90/63 ER:WBC elevated likely from cancer Clinical Imp: Weakness, Dyspnea, Metastatic cancer, Atrial flutter H and P: admitted for tachycardia, dyspnea and new onset a flutter; all bw noted pt undergoing radiat ion at [place] 03/09 ID consult: referred for ID eval to r/o sepsis 03/10: ID progress note: ca lung with mets r/o sepsis COPD pneumonia cont IV rx 03/12: ID progress note documentation includes :ADD ZOSYN- POST OBSTRUCTIVE PNEUMONIA 03/12 [employer]el [employer] note: dxs. include: Leukocytosis, empirically on Zosyn for obstructive pneumonia. 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
--- NOTE | 2018-03-16 15:45 | CP.CCUPN ---
CCU Subjective - Physician Review Events Since Last Encounter (Free Text): 03/16/18 15:45 The patient was Seen/interviewed and examined by me at the bedside during ICU round, Medical records reviewed and Management issues were discussed and formulated with the house staff. Events reviewed Awake, Alert, follows some commands Vomfortable, NAD Pain better controlled No Vasopressors Denies any chest pain, SOB or Palpitations in SR now, was on cardizem GGT, due to shortage of cardizem, switched to esmolol GGT, Patient also on PO cardizem and Metoprolol Succinate Afebrile, On Piperacillin Sod/Tazobactam BP is stable with SBP in mid to high 90s Patient is DNR/DNI, poor prognosis, and the plan is for hospice care. CCU Objective - Vital Signs / Intake & Output Vital Signs (Last 4 hours): Vital Signs Temp Pulse Resp BP Pulse Ox 03/16/18 14:00 70 20 102/56 L 95 03/16/18 12:00 98 F 125 H 21 104/48 L 98 Intake and Output (Last 8hrs): Intake & Output 03/16/18 03/16/18 03/16/18 06:59 14:59 22:59 Intake Total 741 520 Output Total 150 100 Balance 591 420 Intake: IV 420 420 Intake, Piggyback 100 Oral 125 100 Other 96 Output: Urine 150 100 Urine, Voided 150 100 - Physical Exam Physical Exam Limitations: Positive for: Clinical Condition Head: Positive for: Atraumatic, Normocephalic Pupils: Positive for: PERRL Extroacular Muscles: Positive for: EOMI Conjunctiva: Positive for: Normal Mouth: Positive for: Moist Mucous Membranes Pharnyx: Positive for: Normal. Negative for: ERYTHEMA, EXUDATE Nose (Internal): Positive for: Normal Inspection Neck: Positive for: Normal Range of Motion, Trachea Midline. Negative for: Meningeal Signs, MIDLINE TENDERNESS, Paraspinal Tenderness, JVD, Lymphadenopathy , Bruit, Other Respiratory/Chest: Positive for: Accessory Muscle Use, Decreased Breath Sounds. Negative for: Clear to Auscultation, Good Air Exchange, Respiratory Distress, Wheezes, Rales, Retracting, Rhonchi Cardiovascular: Positive for: Irregular Rhythm, Peripheal Pulses Present. Negative for: Tachycardic, Bradycardic Abdomen: Positive for: Distention, Normal Bowel Sounds. Negative for: Tenderness, Peritoneal Signs, Rebound, Guarding Neurological: Positive for: GCS=15, CN II-XII Intact, Speech Normal, Motor Func Grossly Intact, Normal Sensory Function - Medications Active Medications: Active Medications Generic Name Dose Route Start Last Admin Trade Name Freq PRN Reason Stop Dose Admin Amiodarone HCl 400 mg 03/11/18 09:00 03/11/18 08:53 Cordarone PO 400 mg DAILY [facility] Administration Apixaban 2.5 mg 03/08/18 21:00 03/16/18 08:36 Eliquis PO 2.5 mg Q12 [facility] Administration Protocol Diltiazem HCl 60 mg 03/15/18 16:00 03/16/18 10:47 Cardizem PO 60 mg Q6 [facility] Administration Fentanyl 1 patch 03/08/18 16:15 03/14/18 20:24 Duragesic TD 1 patch Q72H [facility] Administration Protocol Amiodarone HCl 450 mg/ Sodium 259 mls @ 34.53 mls/hr 03/11/18 11:30 03/14/18 01:04 Chloride IVPB Not Given .Q7H31M [facility] Protocol 1 MG/MIN Piperacillin Sod/Tazobactam 100 mls @ 100 mls/hr 03/12/18 12:45 03/16/18 13: 57 Sod 3.375 gm/ Sodium Chloride IVPB 100 mls/hr Q8H [facility] Administration Protocol Potassium Chloride/Dextrose/Sod Cl 1,000 mls @ 60 mls/hr 03/15/18 21:00 03/15 21:06 D5-Ns1l+40meq Kcl IV 03/16/18 20:50 60 mls/hr .[id number] [facility] Administration Esmolol HCl 2,500 mg/ Sodium 250 mls @ 24.87 mls/hr 03/16/18 08:00 03/16/18 08:35 Chloride IV 03/16/18 18:03 50 mcg/kg/min .Q10H4M ONE 24.87 mls/hr Protocol Administration 50 MCG/KG/MIN Levalbuterol HCl 1.25 mg 03/11/18 01:16 03/14/18 14:40 Xopenex INH 1.25 mg RQ4 PRN Administration Shortness of Breath Megestrol Acetate 400 mg 03/15/18 09:00 03/16/18 08:36 Megace PO 400 mg DAILY [facility] Administration Metoprolol Succinate 50 mg 03/11/18 09:00 03/16/18 08:36 Toprol Xl PO 50 mg DAILY [facility] Administration Morphine Sulfate 2 mg 03/16/18 15:35 Morphine IVP Q6 PRN Pain, severe (8-10) Nicotine 1 patch 03/09/18 09:00 03/16/18 08:36 Nicoderm Cq TD 1 patch DAILY [facility] Administration Oxycodone/Acetaminophen 1 tab 03/15/18 05:04 03/16/18 08:39 Percocet 5/325 Mg Tab PO 03/18/18 09:01 1 tab Q4 PRN Administration Pain, moderate (4-7) Fluticasone/Salmeterol 1 puff 03/08/18 21:00 03/16/18 08:34 Advair Diskus 250/50 IH 1 puff Q12 [facility] Administration - Patient Studies Lab Studies: Lab Studies 03/16/18 03/16/18 Range/Units 04:35 04:35 WBC 49.7 H* (4.8-10.8) K/uL RBC 2.89 L (4.40-5.90) Mil/uL Hgb 10.7 L (12.0-18.0) g/dL Hct 29.2 L (35.0-51.0) % MCV 101.1 H (80.0-94.0) fl MCH 36.9 H (27.0-31.0) pg MCHC 36.5 (33.0-37.0) g/dL RDW 16.5 H (11.5-14.5) % Plt Count 241 (130-400) K/uL Sodium 133 (132-148) mmol/l Potassium 3.8 (3.6-5.0) MMOL/L Chloride 100 (98-107) mmol/L Carbon Dioxide 22 (22-30) mmol/L Anion Gap 15 (10-20) BUN 16 (9-20) mg/dl Creatinine 0.4 L (0.8-1.5) mg/dl Est GFR ( Amer) > 60 Est GFR (Non-Af Amer) > 60 Random Glucose 154 H (75-110) mg/dL Calcium 9.1 (8.4-10.2) mg/dL Total Bilirubin 1.4 H (0.2-1.3) mg/dl AST 22 (17-59) U/L ALT 27 (21-72) U/L Alkaline Phosphatase 158 H (38-126) U/L Total Protein 6.2 L (6.3-8.2) G/DL Albumin 2.4 L (3.5-5.0) g/dL Globulin 3.8 (2.2-3.9) gm/dL Albumin/Globulin Ratio 0.6 L (1.0-2.1) Laboratory Results - last 24 hr 03/16/18 03/16/18 04:35 04:35 WBC 49.7 H* RBC 2.89 L Hgb 10.7 L Hct 29.2 L MCV 101.1 H MCH 36.9 H MCHC 36.5 RDW 16.5 H Plt Count 241 Sodium 133 Potassium 3.8 Chloride 100 Carbon Dioxide 22 Anion Gap 15 BUN 16 Creatinine 0.4 L Est GFR ( Amer) > 60 Est GFR (Non-Af Amer) > 60 Random Glucose 154 H Calcium 9.1 Total Bilirubin 1.4 H AST 22 ALT 27 Alkaline Phosphatase 158 H Total Protein 6.2 L Albumin 2.4 L Globulin 3.8 Albumin/Globulin Ratio 0.6 L Review of Systems - Constitutional Constitutional: Weakness, Other (Pain most;y generalized). absent: Fever, Chills, Sweats Critical Care Progress Note - Extremities/Vascular Does the Patient have a Central Venous Catheter?: No Does the Patient need a Central Venous Catheter?: No Does the Patient have a Vela Catheter?: No Does the Patient need a Vela Catheter?: No - Nutrition Nutrition: Nutrition Category Date Time Status Regular Diet [DIET] Diets 03/10/18 Dinner Active Assessment/Plan (1) Anemia Current Visit: Yes Status: Acute (2) Atrial flutter Current Visit: Yes Status: Acute (3) Dyspnea Current Visit: Yes Status: Acute (4) Metastatic cancer Current Visit: Yes Status: Acute (5) Weakness Current Visit: Yes Status: Acute (6) Lung cancer Current Visit: No Status: Acute
[2018-03-16] MEDS ORDERED: Mag&Al/Simet/Diphen/Lido 237 ML KIT PO PRN (19:47)
[2018-03-16] MEDS: Levalbuterol 1.25 MG/3 ML Inhal Soln UD INH PRN (21:14)
[2018-03-16] MEDS ORDERED: Chlorhexidine Gluconate 1 APPL/PKT TP ONE (21:27)
[2018-03-16] MEDS: Potassium Chl 40 mEq in D5-NS 1,000 ML IV SCH (22:12)
[2018-03-17] MEDS: Esmolol 2,500 MG in Sodium Chloride 0.9% 250 ML IV ONE ×2 (00:41→07:58)
[2018-03-17] MEDS: Piperacillin/Tazobact 3.375 GM in Sodium Chloride 0.9% 100 ML IVPB SCH (05:30)
[2018-03-17 05:38] LABS: HEMOGLOBIN 10.3 g/dL (12.0-18.0); MEAN CELL VOLUME 101.9 fl (80.0-94.0); MEAN CORPUSCULAR HEMOGLOBIN 36.1 pg (27.0-31.0); MEAN CORPUSCULAR HGB CONC 35.5 g/dL (33.0-37.0); RBC 2.84 Mil/uL (4.40-5.90); RED CELL DISTRIBUTION WIDTH 16.9 % (11.5-14.5)
[2018-03-17 05:56] LABS: WHITE BLOOD COUNT 49.8 K/uL (4.8-10.8)
[2018-03-17 06:11] LABS: BLOOD UREA NITROGEN 16 mg/dl (9-20); CALCIUM 9.1 mg/dL (8.4-10.2); GFR AFRICAN-AMERICAN > 60; GFR NON-AFRICAN AMERICAN > 60
--- NOTE | 2018-03-17 07:51 | CP.PCM.PN ---
Subjective - Date & Time of Evaluation Date of Evaluation: 03/17/18 Time of Evaluation: 07:50 - Subjective Subjective: pt remains w/o pain, cp, dyspnea. on o2 and comfortable. per rn pt is no longer getting out of bed. pt wishes for hr control gtt to continue but has no wish for further bw, anbx. pending home repairs for dc Objective - Vital Signs/Intake and Output Vital Signs (last 24 hours): Temp Pulse Resp BP Pulse Ox 98.2 F 64 17 98/63 L 98 03/17/18 04:00 03/17/18 06:00 03/17/18 06:00 03/17/18 06:00 03/17/18 06:00 Intake and Output: 03/17/18 03/17/18 06:59 18:59 Intake Total 1100 Output Total 100 Balance 1000 - Medications Medications: Current Medications Amiodarone HCl (Cordarone) 400 mg PO DAILY [facility] Last Admin: 03/11/18 08:53 Dose: 400 mg Apixaban (Eliquis) 2.5 mg PO Q12 [facility] PRN Reason: Protocol Last Admin: 03/16/18 21:50 Dose: 2.5 mg Diltiazem HCl (Cardizem) 60 mg PO Q6 [facility] Last Admin: 03/17/18 03:31 Dose: 60 mg Fentanyl (Duragesic) 1 patch TD Q72H [facility] PRN Reason: Protocol Last Admin: 03/14/18 20:24 Dose: 1 patch Amiodarone HCl 450 mg/ Sodium (Chloride) 259 mls @ 34.53 mls/hr IVPB .Q7H31M [facility]; 1 MG/MIN PRN Reason: Protocol Last Admin: 03/14/18 01:04 Dose: Not Given Piperacillin Sod/Tazobactam (Sod 3.375 gm/ Sodium Chloride) 100 mls @ 100 mls/ hr IVPB Q8H [facility] PRN Reason: Protocol Last Admin: 03/17/18 05:30 Dose: 100 mls/hr Esmolol HCl 2,500 mg/ Sodium (Chloride) 250 mls @ 24.87 mls/hr IV .Q10H4M ONE; 50 MCG/KG/MIN PRN Reason: Protocol Stop: 03/17/18 09:48 Last Titration: 03/17/18 03:25 Dose: 100 mcg/kg/min, 49.75 mls/hr Levalbuterol HCl (Xopenex) 1.25 mg INH RQ4 PRN PRN Reason: Shortness of Breath Last Admin: 03/16/18 21:14 Dose: 1.25 mg Megestrol Acetate (Megace) 400 mg PO DAILY [facility] Last Admin: 03/16/18 08:36 Dose: 400 mg Metoprolol Succinate (Toprol Xl) 50 mg PO DAILY [facility] Last Admin: 03/16/18 08:36 Dose: 50 mg Morphine Sulfate (Morphine) 2 mg IVP Q4H PRN PRN Reason: Pain, severe (8-10) Last Admin: 03/17/18 05:52 Dose: 2 mg Nicotine (Nicoderm Cq) 1 patch TD DAILY [facility] Last Admin: 03/16/18 08:36 Dose: 1 patch Oxycodone/Acetaminophen (Percocet 5/325 Mg Tab) 1 tab PO Q4 PRN PRN Reason: Pain, moderate (4-7) Stop: 03/18/18 09:01 Last Admin: 03/16/18 08:39 Dose: 1 tab Saliva Substitute (First Magic Mouthwash) 5 ml PO Q4H PRN PRN Reason: mouth pain/discomfort Last Admin: 03/16/18 21:46 Dose: 5 ml Fluticasone/Salmeterol (Advair Diskus 250/50) 1 puff IH Q12 [facility] Last Admin: 03/16/18 22:16 Dose: Not Given - Labs Labs: 03/17/18 04:20 03/17/18 04:20 PT 16.1 Seconds (9.8-13.1) H 03/08/18 13:27 INR 1.4 (0.9-1.2) H 03/08/18 13:27 APTT 30.1 Seconds (25.6-37.1) 03/08/18 13:27 - Constitutional Appears: Non-toxic, No Acute Distress, Chronically Ill - Head Exam Head Exam: ATRAUMATIC, NORMAL INSPECTION, NORMOCEPHALIC - Eye Exam Eye Exam: EOMI, Normal appearance, PERRL Pupil Exam: NORMAL ACCOMODATION, PERRL - ENT Exam ENT Exam: Mucous Membranes Moist, Normal Exam - Neck Exam Neck Exam: Full ROM, Normal Inspection. absent: Lymphadenopathy - Respiratory Exam Respiratory Exam: Rhonchi, NORMAL BREATHING PATTERN - Cardiovascular Exam Cardiovascular Exam: REGULAR RHYTHM, RRR, +S1, +S2. absent: Murmur - GI/Abdominal Exam GI & Abdominal Exam: Soft, Normal Bowel Sounds. absent: Tenderness - Extremities Exam Extremities Exam: Full ROM, Normal Capillary Refill, Normal Inspection. absent : Joint Swelling, Pedal Edema - Back Exam Back Exam: NORMAL INSPECTION - Neurological Exam Neurological Exam: Abnormal Gait, Alert, Awake, CN II-XII Intact, Oriented x3 - Psychiatric Exam Psychiatric exam: Normal Affect, Normal Mood - Skin Skin Exam: Dry, Intact, Normal Color, Warm Assessment and Plan (1) Atrial flutter Status: Acute (2) Dyspnea Status: Acute (3) DVT prophylaxis Status: Acute (4) Leukocytosis Status: Acute (5) Lung cancer Status: Acute - Assessment and Plan (Free Text) Assessment: (1) Atrial flutter Assessment and Plan: pt now on esmolol, rate and rhythm controlled. per rn pt still has rapid aflutter runs icu cardio, ivf case d/c w/ dr coronel nsr 80s noted Status: Acute (2) Dyspnea Assessment and Plan: improving, on resp tx icu care r/t tachycardia and lung ca abn cxr noted. d/c case w/ pts onc in [place], nothing to add to POC pt comfortable off o2 Status: Acute (3) DVT prophylaxis Assessment and Plan: scd and ae hose eliquis Status: Acute (4) Leukocytosis Assessment and Plan: heme/onc, ID consult procalcitonin 3 all anbx stopped sputum c/s prelim blood/urine c/s negative per dr hanson-likely r/t cancer changes/bone marrow irritation/inflammation Status: Acute (5) Lung cancer Assessment and Plan: heme/onc dnr/dni hospice Status: Acute 6-hyponatremia/kalemia-being corrected by icu attending,will monitor, corrected. no further monitoring as per pt pt signed onto hospitce but is unable to go home until tomorrow r/t broken water pipe pt wishes for dc of all blood draws, anbx. wishes to cont w/ hr control gtts. stephie rn at bedside as witness
[2018-03-17] MEDS: Metoprolol Succinate 50 mg XL Tab PO SCH (08:18)
[2018-03-17] MEDS: Megestrol Acetate 40 mg/ml Cup PO SCH (08:24)
[2018-03-17] MEDS: Fluticasone-Salmeterol 250-50mcg Diskus IH SCH ×2 (08:24→21:58)
[2018-03-17] MEDS ORDERED: Esmolol 2,500 MG in Sodium Chloride 0.9% 250 ML IV ONE (11:30)
--- NOTE | 2018-03-17 11:31 | CP.CCUPN ---
CCU Subjective - Physician Review Subjective (Free Text): Still has significant and appreciable pain in the groin and legs despite transdermal fentanyl at 75 mcg dose. Esmolol resumed since it had been stopped at 3AM when HR was in the 70s. BP now borderline at 90-100 systolic with HR controlled. He is awake and interactive with at the bedside this AM. Afebrile without fever spikes. Other vitals and I/O's reviewed. Positive fluid balance over the past several days. ROS: no other pertinent negs or positives on 10+ system review. PMSFH: All other Nursing and physician documentation reviewed to date; no new pertinent info obtained that is different or contributory to information already listed. EXAM- HEENT: no icterus, pupils equal and reactive NECK: No JVD, supple, carotids equal upstroke bilat/no bruits CHEST: clear with diminished BS bilat, moreso on Left no wheezes audible. HEART: regular, distant, S1S2, no rubs or murmurs ABD: soft, no distention, no tympany, no palp tenderness, BS hypoactive EXT: No peripheral/ digital cyanosis, no calf tenderness or palpable cords, distal pulses intact and symmetrical. + increasing anasarca. NEURO: No gross focal motor deficits. SKIN: no rashes, warm and dry. LABS: WBC= 49.8 HGB= 10.3 PLTs= 227K Jk=634 K= 3.8 MM=308 HCO3= 22 BUN/Cr= 16/0.4 BS= 139 IMPRESSION / MAJOR PROBLEMS NOW: 1. Recurrent PSVT / A Flutter with variable Block 2. Acute Resp insuff, s/p Left Hemithorax opacification / Lobar collapse- Bronchial tumor obstruction 3. Metastatic Lung CA 4. Hyponatremia PLAN: 1. Meds reviewed: off Amiodarone on Low dose Toprol XL 50 qd, and on Cardizem 60mg Q6h only. Mo endpoint seen with short acting beta blockade with Esmolol, now up to 100 mcg dose range. Could increase Toprol further if BP tolerates, and or add Digoxin fro further VR control of A Flutter. He remains on Apixaban. 2. Unclear, although but uncontrolled pain may be a significant contributor to patients tachycardia. Would increase Fentanyl patch further of BP tolerates and or start Morphine drip. 3. IVFs have , marked +fluid balance noted and now anasarca evident. Will not resume unless serum Na or K levels drop further. 4. Awaiting Hospice placement. Transfer to tele bed or regular medsur bed.
--- NOTE | 2018-03-17 11:49 | CP.PCM.PN ---
Subjective - Date & Time of Evaluation Date of Evaluation: 03/17/18 Time of Evaluation: 11:30 - Subjective Subjective: Appears comfortable, family at bedside. Objective - Vital Signs/Intake and Output Vital Signs (last 24 hours): Temp Pulse Resp BP Pulse Ox 98.9 F 67 17 103/60 97 03/17/18 08:00 03/17/18 11:07 03/17/18 10:00 03/17/18 11:07 03/17/18 10:00 Intake and Output: 03/17/18 03/17/18 06:59 18:59 Intake Total 1250 Output Total 100 Balance 1150 - Medications Medications: Current Medications Apixaban (Eliquis) 2.5 mg PO Q12 [facility] PRN Reason: Protocol Last Admin: 03/17/18 08:16 Dose: 2.5 mg Diltiazem HCl (Cardizem) 60 mg PO Q6 [facility] Last Admin: 03/17/18 11:07 Dose: 60 mg Fentanyl (Duragesic) 1 patch TD Q72H [facility] PRN Reason: Protocol Last Admin: 03/14/18 20:24 Dose: 1 patch Esmolol HCl 2,500 mg/ Sodium (Chloride) 250 mls @ 49.75 mls/hr IV .Q5H2M ONE; 100 MCG/KG/MIN PRN Reason: Protocol Stop: 03/17/18 16:31 Levalbuterol HCl (Xopenex) 1.25 mg INH RQ4 PRN PRN Reason: Shortness of Breath Last Admin: 03/16/18 21:14 Dose: 1.25 mg Megestrol Acetate (Megace) 400 mg PO DAILY [facility] Last Admin: 03/17/18 08:24 Dose: Not Given Metoprolol Succinate (Toprol Xl) 50 mg PO DAILY [facility] Last Admin: 03/17/18 08:18 Dose: 50 mg Morphine Sulfate (Morphine) 2 mg IVP Q4H PRN PRN Reason: Pain, severe (8-10) Last Admin: 03/17/18 10:40 Dose: 2 mg Nicotine (Nicoderm Cq) 1 patch TD DAILY [facility] Last Admin: 03/17/18 08:16 Dose: 1 patch Oxycodone/Acetaminophen (Percocet 5/325 Mg Tab) 1 tab PO Q4 PRN PRN Reason: Pain, moderate (4-7) Stop: 03/18/18 09:01 Last Admin: 03/16/18 08:39 Dose: 1 tab Saliva Substitute (First Magic Mouthwash) 5 ml PO Q4H PRN PRN Reason: mouth pain/discomfort Last Admin: 03/16/18 21:46 Dose: 5 ml Fluticasone/Salmeterol (Advair Diskus 250/50) 1 puff IH Q12 [facility] Last Admin: 03/17/18 08:24 Dose: Not Given - Labs Labs: 03/17/18 04:20 03/17/18 04:20 PT 16.1 Seconds (9.8-13.1) H 03/08/18 13:27 INR 1.4 (0.9-1.2) H 03/08/18 13:27 APTT 30.1 Seconds (25.6-37.1) 03/08/18 13:27 - Head Exam Head Exam: ATRAUMATIC - ENT Exam ENT Exam: Mucous Membranes Dry - Respiratory Exam Respiratory Exam: NORMAL BREATHING PATTERN - Cardiovascular Exam Cardiovascular Exam: +S1, +S2 - GI/Abdominal Exam GI & Abdominal Exam: Normal Bowel Sounds Assessment and Plan (1) Metastatic cancer Assessment & Plan: supportive care pain well controlled DNR/DNI Status: Acute
[2018-03-18] MEDS: Oxycodone/Acetaminophen 5/325 mg Tab PO PRN (04:43)
[2018-03-18 05:01] VITALS: TEMP 98.6
--- NOTE | 2018-03-18 07:55 | CP.PCM.PN ---
Subjective - Date & Time of Evaluation Date of Evaluation: 03/18/18 Time of Evaluation: 07:53 - Subjective Subjective: pt more somnolent and fatigued. not opening eyes but verbally responding to questions. no f/c, n/v/d. svt regular at 160 on monitor pt to be signed onto hospice inpatient today. pt and daughter aware of everything. Objective - Vital Signs/Intake and Output Vital Signs (last 24 hours): Temp Pulse Resp BP Pulse Ox 98.6 F 165 H 21 114/79 96 03/18/18 04:00 03/18/18 06:00 03/18/18 06:00 03/18/18 06:00 03/18/18 06:00 Intake and Output: 03/18/18 03/18/18 06:59 18:59 Intake Total 290 0 Output Total 100 Balance 190 0 - Medications Medications: Current Medications Apixaban (Eliquis) 2.5 mg PO Q12 [facility] PRN Reason: Protocol Last Admin: 03/17/18 21:58 Dose: 2.5 mg Diltiazem HCl (Cardizem) 60 mg PO Q6 [facility] Last Admin: 03/18/18 04:44 Dose: 60 mg Fentanyl (Duragesic) 1 patch TD Q72H [facility] PRN Reason: Protocol Last Admin: 03/17/18 17:03 Dose: 1 patch Levalbuterol HCl (Xopenex) 1.25 mg INH RQ4 PRN PRN Reason: Shortness of Breath Last Admin: 03/16/18 21:14 Dose: 1.25 mg Megestrol Acetate (Megace) 400 mg PO DAILY [facility] Last Admin: 03/17/18 08:24 Dose: Not Given Metoprolol Succinate (Toprol Xl) 50 mg PO DAILY [facility] Last Admin: 03/17/18 08:18 Dose: 50 mg Morphine Sulfate (Morphine) 2 mg IVP Q4H PRN PRN Reason: Pain, severe (8-10) Last Admin: 03/18/18 04:15 Dose: 2 mg Nicotine (Nicoderm Cq) 1 patch TD DAILY [facility] Last Admin: 03/17/18 08:16 Dose: 1 patch Oxycodone/Acetaminophen (Percocet 5/325 Mg Tab) 1 tab PO Q4 PRN PRN Reason: Pain, moderate (4-7) Stop: 03/18/18 09:01 Last Admin: 03/18/18 04:43 Dose: 1 tab Saliva Substitute (First Magic Mouthwash) 5 ml PO Q4H PRN PRN Reason: mouth pain/discomfort Last Admin: 03/16/18 21:46 Dose: 5 ml Fluticasone/Salmeterol (Advair Diskus 250/50) 1 puff IH Q12 [facility] Last Admin: 03/17/18 21:58 Dose: Not Given - Labs Labs: 03/17/18 04:20 03/17/18 04:20 PT 16.1 Seconds (9.8-13.1) H 03/08/18 13:27 INR 1.4 (0.9-1.2) H 03/08/18 13:27 APTT 30.1 Seconds (25.6-37.1) 03/08/18 13:27 - Constitutional Appears: No Acute Distress, Chronically Ill - Head Exam Head Exam: ATRAUMATIC, NORMAL INSPECTION, NORMOCEPHALIC - Eye Exam Eye Exam: EOMI, Normal appearance, PERRL Pupil Exam: NORMAL ACCOMODATION, PERRL - ENT Exam ENT Exam: Mucous Membranes Moist, Normal Exam - Neck Exam Neck Exam: Full ROM, Normal Inspection. absent: Lymphadenopathy - Respiratory Exam Respiratory Exam: Rhonchi, NORMAL BREATHING PATTERN - Cardiovascular Exam Cardiovascular Exam: Tachycardia, REGULAR RHYTHM, +S1, +S2. absent: Murmur - GI/Abdominal Exam GI & Abdominal Exam: Soft, Normal Bowel Sounds. absent: Tenderness - Extremities Exam Extremities Exam: Full ROM, Normal Capillary Refill, Normal Inspection. absent : Joint Swelling, Pedal Edema - Back Exam Back Exam: NORMAL INSPECTION - Neurological Exam Neurological Exam: Abnormal Gait, Awake, CN II-XII Intact - Psychiatric Exam Psychiatric exam: Normal Affect, Normal Mood - Skin Skin Exam: Dry, Intact, Normal Color, Warm Assessment and Plan (1) Atrial flutter Status: Acute (2) Dyspnea Status: Acute (3) DVT prophylaxis Status: Acute (4) Leukocytosis Status: Acute (5) Lung cancer Status: Acute - Assessment and Plan (Free Text) Assessment: pt to be started on in-patient hospice. rep from [facility]. once pt on hospice all current meds will be dc and pt to be started on ms gtt, scopalamine, ativan monitor-svt 160s pt w/o dyspnea. + congestion. will follow and family updated on all
[2018-03-18] MEDS ORDERED: Chlorhexidine Gluconate 1 APPL/PKT TP ONE (09:17)
[2018-03-18] MEDS ORDERED: DiphenhydrAMINE 50 mg/ml Inj IVP STA (09:20)
[2018-03-18] MEDS ORDERED: Morphine 100 MG in Sodium Chloride 0.9% 100 ML IVPB SCH (09:30)
[2018-03-18] MEDS: Levalbuterol 1.25 MG/3 ML Inhal Soln UD INH PRN (09:55)
[2018-03-18] MEDS: Fluticasone-Salmeterol 250-50mcg Diskus IH SCH (11:03)
--- NOTE | 2018-03-18 12:03 | CP.PCM.DIS ---
Provider - Provider Date of Admission: 03/08/18 16:41 Attending physician: Karen Castro MD Time Spent in preparation of Discharge (in minutes): 30 Diagnosis - Discharge Diagnosis (1) Atrial flutter Status: Acute (2) Dyspnea Status: Acute (3) DVT prophylaxis Status: Acute (4) Leukocytosis Status: Acute (5) Lung cancer Status: Acute Hospital Course - Lab Results Lab Results: Micro Results 03/08/18 14:43 Blood Blood Culture - Final NO GROWTH AFTER 5 DAYS 03/08/18 14:43 Blood Gram Stain - Final TEST NOT PERFORMED 03/08/18 14:43 Blood Blood Culture - Final NO GROWTH AFTER 5 DAYS 03/08/18 14:43 Blood Gram Stain - Final TEST NOT PERFORMED 03/09/18 07:41 Sputum Gram Stain - Final 03/09/18 07:41 Sputum Sputum Culture - Final NORMAL ORAL MARCELINO 03/08/18 21:37 Naris MRSA Culture (Admit) - Final MRSA NOT DETECTED 03/08/18 15:50 Urine,Clean Catch Urine Culture - Final No Growth (<1,000 CFU/ML) Most Recent Lab Values WBC 49.8 K/uL (4.8-10.8) H* 03/17/18 04:20 RBC 2.84 Mil/uL (4.40-5.90) L 03/17/18 04:20 Hgb 10.3 g/dL (12.0-18.0) L 03/17/18 04:20 Hct 28.9 % (35.0-51.0) L 03/17/18 04:20 MCV 101.9 fl (80.0-94.0) H 03/17/18 04:20 MCH 36.1 pg (27.0-31.0) H 03/17/18 04:20 MCHC 35.5 g/dL (33.0-37.0) 03/17/18 04:20 RDW 16.9 % (11.5-14.5) H 03/17/18 04:20 Plt Count 227 K/uL (130-400) 03/17/18 04:20 MPV 7.4 fl (7.2-11.7) 03/12/18 04:50 Neut % (Auto) 95.7 % (50.0-75.0) H 03/12/18 04:50 Lymph % (Auto) 1.0 % (20.0-40.0) L 03/12/18 04:50 [place] % (Auto) 2.9 % (0.0-10.0) 03/12/18 04:50 Eos % (Auto) 0.0 % (0.0-4.0) 03/12/18 04:50 Baso % (Auto) 0.4 % (0.0-2.0) 03/12/18 04:50 Neut # (Auto) 50.0 K/uL (1.8-7.0) H 03/12/18 04:50 Lymph # (Auto) 0.5 K/uL (1.0-4.3) L 03/12/18 04:50 [place] # (Auto) 1.5 K/uL (0.0-0.8) H 03/12/18 04:50 Eos # (Auto) 0.0 K/uL (0.0-0.7) 03/12/18 04:50 Baso # (Auto) 0.2 K/uL (0.0-0.2) 03/12/18 04:50 Total Counted Cancelled 03/10/18 04:20 Neutrophils % (Manual) 98 % (42-75) H 03/11/18 04:45 Band Neutrophils % 1 % (0-2) 03/11/18 04:45 Lymphocytes % (Manual) 0 % (20-50) L 03/11/18 04:45 Reactive Lymphs % Cancelled 03/10/18 04:20 Monocytes % (Manual) 1 % (0-10) 03/11/18 04:45 Eosinophils % (Manual) Cancelled 03/10/18 04:20 Basophils % (Manual) Cancelled 03/10/18 04:20 Metamyelocytes % Cancelled 03/10/18 04:20 Myelocytes % 1 % (0-0) H 03/09/18 04:50 Promyelocytes % Cancelled 03/10/18 04:20 Blast Cells % Cancelled 03/10/18 04:20 Plasma Cell % (Manual) Cancelled 03/10/18 04:20 Nucleated RBC % Cancelled 03/10/18 04:20 Hypersegmented Polys Present 03/09/18 04:50 Smudge Cells Cancelled 03/10/18 04:20 Toxic Granulation Present 03/09/18 04:50 Dohle Bodies Cancelled 03/10/18 04:20 Adeel Rods Cancelled 03/10/18 04:20 Platelet Estimate Normal (NORMAL) 03/11/18 04:45 Plt Clumps, EDTA Cancelled 03/10/18 04:20 Large Platelets Cancelled 03/10/18 04:20 Giant Platelets Cancelled 03/10/18 04:20 RBC Morphology Cancelled 03/10/18 04:20 Polychromasia Cancelled 03/10/18 04:20 Hypochromasia (manual) Cancelled 03/10/18 04:20 Poikilocytosis (manual Cancelled 03/10/18 04:20 Basophilic Stippling Cancelled 03/10/18 04:20 Anisocytosis (manual) Slight 03/11/18 04:45 Microcytosis (manual) Cancelled 03/10/18 04:20 Macrocytosis (manual) Slight 03/11/18 04:45 Spherocytes Cancelled 03/10/18 04:20 Sickle Cells Cancelled 03/10/18 04:20 Target Cells Cancelled 03/10/18 04:20 Tear Drop Cells Cancelled 03/10/18 04:20 Ovalocytes Cancelled 03/10/18 04:20 Stomatocytes Cancelled 03/10/18 04:20 Helmet Cells Cancelled 03/10/18 04:20 [place] Bodies Cancelled 03/10/18 04:20 Vidhya Cells Cancelled 03/10/18 04:20 Acanthocytes (Spur) Cancelled 03/10/18 04:20 Rouleaux Cancelled 03/10/18 04:20 Schistocytes Cancelled 03/10/18 04:20 PT 16.1 Seconds (9.8-13.1) H 03/08/18 13:27 INR 1.4 (0.9-1.2) H 03/08/18 13:27 APTT 30.1 Seconds (25.6-37.1) 03/08/18 13:27 pCO2 24 mm/Hg (35-45) L 03/08/18 13:39 pO2 86 mm/Hg (30-55) H 03/08/18 17:26 HCO3 25.1 mmol/L (21-28) 03/08/18 13:39 ABG pH 7.55 (7.35-7.45) H 03/08/18 13:39 ABG Total CO2 21.7 mmol/L (22-28) L 03/08/18 13:39 ABG O2 Saturation 100.5 % (95-98) H 03/08/18 13:39 ABG Base Excess 0.2 mmol/L (-2.0-3.0) 03/08/18 13:39 Shaan Test Yes 03/08/18 13:39 ABG Potassium 3.8 mmol/L (3.6-5.2) 03/08/18 13:39 VBG pH 7.46 (7.32-7.43) H 03/08/18 17:26 VBG pCO2 30 mmHg (40-60) L 03/08/18 17:26 VBG HCO3 23.8 mmol/L 03/08/18 17:26 VBG Total CO2 22.2 mmol/L (22-28) 03/08/18 17:26 VBG O2 Sat (Calc) 99.9 % (40-65) H 03/08/18 17:26 VBG Base Excess -1.5 mmol/L (0.0-2.0) L 03/08/18 17:26 VBG Potassium 4.1 mmol/L (3.6-5.2) 03/08/18 17:26 A-a O2 Difference 81.0 mm/Hg 03/08/18 13:39 Sodium 131.0 mmol/L (132-148) L 03/08/18 17:26 Chloride 101.0 mmol/L (98-107) 03/08/18 17:26 Glucose 209 mg/dL (75-110) H 03/08/18 17:26 Lactate 2.2 mmol/L (0.7-2.1) H 03/08/18 17:26 FiO2 21.0 % 03/08/18 17:26 Sodium 133 mmol/l (132-148) 03/17/18 04:20 Potassium 3.8 MMOL/L (3.6-5.0) 03/17/18 04:20 Chloride 102 mmol/L (98-107) 03/17/18 04:20 Carbon Dioxide 22 mmol/L (22-30) 03/17/18 04:20 Anion Gap 13 (10-20) 03/17/18 04:20 BUN 16 mg/dl (9-20) 03/17/18 04:20 Creatinine 0.4 mg/dl (0.8-1.5) L 03/17/18 04:20 Est GFR ( Amer) > 60 03/17/18 04:20 Est GFR (Non-Af Amer) > 60 03/17/18 04:20 Random Glucose 139 mg/dL (75-110) H 03/17/18 04:20 Calcium 9.1 mg/dL (8.4-10.2) 03/17/18 04:20 Phosphorus 4.0 mg/dl (2.5-4.5) 03/11/18 04:45 Magnesium 2.0 MG/DL (1.6-2.3) 03/11/18 04:45 Total Bilirubin 1.4 mg/dl (0.2-1.3) H 03/16/18 04:35 AST 22 U/L (17-59) 03/16/18 04:35 ALT 27 U/L (21-72) 03/16/18 04:35 Alkaline Phosphatase 158 U/L (38-126) H 03/16/18 04:35 Troponin I 0.0130 ng/mL (0.00-0.120) 03/08/18 13:27 NT-Pro-B Natriuret Pep 861 pg/ml (0-900) 03/08/18 13:27 Total Protein 6.2 G/DL (6.3-8.2) L 03/16/18 04:35 Albumin 2.4 g/dL (3.5-5.0) L 03/16/18 04:35 Globulin 3.8 gm/dL (2.2-3.9) 03/16/18 04:35 Albumin/Globulin Ratio 0.6 (1.0-2.1) L 03/16/18 04:35 Procalcitonin 3.07 NG/ML (0.19-0.49) H 03/09/18 13:30 Arterial Blood Potassium 3.8 mmol/L (3.6-5.2) 03/08/18 13:39 Venous Blood Potassium 4.1 mmol/L (3.6-5.2) 03/08/18 17:26 Urine Color Yellow (YELLOW) 03/08/18 15:50 Urine Clarity Clear (Clear) 03/08/18 15:50 Urine pH 6.0 (5.0-8.0) 03/08/18 15:50 Ur Specific [place] > 1.060 (1.003-1.030) H 03/08/18 15:50 Urine Protein Negative mg/dL (NEGATIVE) 03/08/18 15:50 Urine Glucose (UA) Neg mg/dL (Normal) 03/08/18 15:50 Urine Ketones Negative mg/dL (NEGATIVE) 03/08/18 15:50 Urine Blood Negative (NEGATIVE) 03/08/18 15:50 Urine Nitrate Negative (NEGATIVE) 03/08/18 15:50 Urine Bilirubin Negative (NEGATIVE) 03/08/18 15:50 Urine Urobilinogen 4.0 mg/dL (0.2-1.0) 03/08/18 15:50 Ur Leukocyte Esterase Neg Ant/uL (Negative) 03/08/18 15:50 Urine RBC (Auto) 2 /hpf (0-3) 03/08/18 15:50 Urine Microscopic WBC 1 /hpf (0-5) 03/08/18 15:50 Ur Squamous Epith Cells < 1 /hpf (0-5) 03/08/18 15:50 Influenza Typ A,B (EIA) Negative for flu a/b (NEGATIVE) 03/08/18 13:27 - Hospital Course Hospital Course: amiodarone, cardizem, esmolol cardio, heme/onc, icu, ID zosyn hospice Discharge Exam - Head Exam Head Exam: ATRAUMATIC, NORMAL INSPECTION, NORMOCEPHALIC Discharge Plan - Discharge Medications Prescriptions: diltiaZEM [Cardizem] 30 mg PO Q6H #120 tab Levalbuterol [Xopenex] 1.25 mg INH RQ4 PRN #100 neb PRN Reason: Shortness Of Breath Metoprolol Succinate XL [Toprol XL] 50 mg PO DAILY #30 tab - Follow Up Plan Condition: FAIR Disposition: HOSPICE - MEDICAL FACILITY Instructions: Weakness (ED) Additional Instructions: pt dc to inpatient hospice meds ordered will follow final dx-lung ca, aflutter/svt
[2018-03-18 12:20] VITALS: BP 153/93; PULSE 165; RESP 25; O2SAT 95
== END 2018-03-18 13:07 | disposition hospice, inpatient (51) | DRG 308 ==
LOC: H.ER 12:51 → H.ERHOLD 16:41 → H.ICU/CCU 19:34
PROVIDERS: ADMIT Family Medicine; ATTEND Family Medicine
DX: I48.92 Unspecified atrial flutter (principal); J18.9 Pneumonia, unspecified organism; C34.90 Malignant neoplasm of unspecified part of unspecified bronchus or lung; C79.31 Secondary malignant neoplasm of brain; C79.51 Secondary malignant neoplasm of bone; E87.1 Hypo-osmolality and hyponatremia; J44.0 Chronic obstructive pulmonary disease with (acute) lower respiratory infection; J44.1 Chronic obstructive pulmonary disease with (acute) exacerbation; Z66 Do not resuscitate; Z87.891 Personal history of nicotine dependence; Z92.3 Personal history of irradiation; I47.1 Supraventricular tachycardia; D63.8 Anemia in other chronic diseases classified elsewhere; E87.6 Hypokalemia; R06.89 Other abnormalities of breathing; E88.09 Other disorders of plasma-protein metabolism, not elsewhere classified; Z51.5 Encounter for palliative care

== ENCOUNTER 2018-03-18 11:24 | Inpatient (IN) | payer OTHER ==
[2018-03-18 11:41] VITALS: BMI 26.9
[2018-03-18] MEDS ORDERED: Morphine 100 MG in Sodium Chloride 0.9% 100 ML IVPB SCH (11:45)
[2018-03-18] MEDS ORDERED: Morphine 100 MG in Sodium Chloride 0.9% 100 ML IV SCH (15:45)
--- NOTE | 2018-03-19 09:26 | CP.PCM.PN ---
Subjective - Date & Time of Evaluation Date of Evaluation: 03/19/18 Time of Evaluation: 09:25 - Subjective Subjective: pt on inpt hospice no distress appears comfortbale doesnt open eyes to verbal/tactile stimulus but smiles when talked to on ms gtt Objective - Vital Signs/Intake and Output Vital Signs (last 24 hours): Temp Pulse Resp BP Pulse Ox 97.9 F 169 H 24 134/88 90 L 03/19/18 09:00 03/19/18 09:00 03/19/18 09:00 03/19/18 09:00 03/19/18 09:00 - Medications Medications: Current Medications Acetaminophen (Tylenol 650 Mg Supp) 650 mg MT Q4 PRN PRN Reason: Fever >100.4 F Morphine Sulfate 100 mg/ (Sodium Chloride) 104 mls @ 1.04 mls/hr IV .Q24H [facility]; 1 MG/HR PRN Reason: Protocol Last Admin: 03/18/18 16:27 Dose: 2 mg/hr, 2.08 mls/hr Lorazepam (Ativan) 1 mg IVP Q6 PRN PRN Reason: Agitation Last Admin: 03/19/18 08:52 Dose: 1 mg Morphine Sulfate (Morphine) 2 mg IVP Q4 PRN PRN Reason: breakthrough pain Last Admin: 03/19/18 07:57 Dose: 2 mg Scopolamine (Transderm-Scop) 1 patch TD Q3D TESFAYE Last Admin: 03/18/18 13:57 Dose: 1 patch
--- NOTE | 2018-03-19 10:23 | CP.PCM.HP ---
History of Present Illness - History of Present Illness History of Present Illness: pt on inpt hospice no distress appears comfortbale doesnt open eyes to verbal/tactile stimulus but smiles when talked to on ms gtt vs noted. tachycardia noted daughter at bedside Present on Admission - Present on Admission Any Indicators Present on Admission: No Review of Systems - Review of Systems Systems not reviewed;Unavailable: Acuity of Condition Past Patient History - Past Medical History & Family History Past Medical History?: Yes - Past Social History Smoking Status: Unknown If Ever Smoked - CARDIAC Hx Cardiac Disorders: Yes Hx Cardia Arrhythmia: Yes - PULMONARY Hx Respiratory Disorders: Yes Hx Lung Cancer: Yes Hx Pneumonia: Yes - NEUROLOGICAL Hx Neurological Disorder: No - HEENT Hx HEENT Problems: No - RENAL Hx Chronic Kidney Disease: No - ENDOCRINE/METABOLIC Hx Endocrine Disorders: No - HEMATOLOGICAL/ONCOLOGICAL Hx Blood Disorders: No - INTEGUMENTARY Hx Dermatological Problems: No - MUSCULOSKELETAL/RHEUMATOLOGICAL Hx Musculoskeletal Disorders: No Hx Falls: No - GASTROINTESTINAL Hx Gastrointestinal Disorders: No - GENITOURINARY/GYNECOLOGICAL Hx Genitourinary Disorders: Yes Hx Incontinence: Yes - PSYCHIATRIC Hx Psychophysiologic Disorder: No Hx Substance Use: No - SURGICAL HISTORY Hx Surgeries: Yes Other/Comment: Polyps removed from throat. - ANESTHESIA Hx Anesthesia: Yes Hx Anesthesia Reactions: No Hx Malignant Hyperthermia: No Meds Allergies/Adverse Reactions: Allergies Allergy/AdvReac Type Severity Reaction Status Date / Time No Known Allergies Allergy Verified 03/08/18 12:55 Physical Exam - Constitutional Appears: No Acute Distress, Chronically Ill - Head Exam Head Exam: ATRAUMATIC, NORMAL INSPECTION, NORMOCEPHALIC - Eye Exam Eye Exam: EOMI, Normal appearance, PERRL Pupil Exam: NORMAL ACCOMODATION, PERRL - ENT Exam ENT Exam: Mucous Membranes Moist, Normal Exam - Neck Exam Neck exam: Positive for: Normal Inspection - Respiratory Exam Respiratory Exam: Clear to Auscultation Bilateral, NORMAL BREATHING PATTERN - Cardiovascular Exam Cardiovascular Exam: Tachycardia, REGULAR RHYTHM, +S1, +S2 - GI/Abdominal Exam GI & Abdominal Exam: Normal Bowel Sounds, Soft. absent: Tenderness - Extremities Exam Extremities exam: Positive for: full ROM, normal capillary refill, normal inspection, pedal pulses present - Back Exam Back exam: NORMAL INSPECTION - Neurological Exam Neurological exam: Abnormal Gait, CN II-XII Intact, Reflexes Normal - Psychiatric Exam Psychiatric exam: Normal Affect, Normal Mood - Skin Skin Exam: Dry, Intact, Normal Color, Warm Results - Vital Signs Recent Vital Signs: Last Vital Signs Temp 97.9 F 03/19/18 09:00 Pulse 169 H 03/19/18 09:00 Resp 24 03/19/18 09:00 BP 134/88 03/19/18 09:00 Pulse Ox 90 L 03/19/18 09:00 Assessment & Plan (1) Atrial flutter Status: Acute (2) Brain lesion Status: Acute (3) Coagulopathy Status: Acute (4) Lung cancer Status: Acute (5) Metastatic cancer Status: Acute - Assessment and Plan (Free Text) Assessment: pt on in pt hosipce. ms gtt, ativan prn, scopalamine, tylenol prn titrate for comfort. support to family Decision To Admit - Pt Status Changed To: Hospital Disposition Of: Inpatient - Admit Certification Admit to Inpatient:: After my assessment, the patient will require hospitalization for at least two midnights. This is because of the severity of symptoms shown, intensity of services needed, and/or the medical risk in this patient being treated as an outpatient. - . Bed Request Type: Inpatient Hospice Admitting Physician: Karen Castro
[2018-03-19] MEDS: Morphine 100 MG in Sodium Chloride 0.9% 100 ML IVPB SCH (18:12)
[2018-03-20 08:34] VITALS: O2SAT 93
--- NOTE | 2018-03-20 09:08 | CP.PCM.PN ---
Subjective - Date & Time of Evaluation Date of Evaluation: 03/20/18 Time of Evaluation: 09:06 - Subjective Subjective: Patient resting comfortably in bed, due to increased work of breathing, hospice recommended Morphine drip at 3 mg. Arouses and smiles to name calling. Tachycardic, hypotensive systolic 70s. Objective - Vital Signs/Intake and Output Vital Signs (last 24 hours): Temp Pulse Resp BP Pulse Ox 102.7 F H 180 H 28 H 74/51 L 93 L 03/20/18 08:34 03/20/18 08:34 03/20/18 08:34 03/20/18 08:34 03/20/18 08:34 Vitals Reviewed GEN: thin, chronically ill, mildly labored breathing, appears comfortable HEENT: NCAT, PERRL, EOMI HEART: tachycardic, +S1S2, NO MRG LUNG: CTAB, NO WRR ABD: soft, ND, No HSM, No masses EXT: normal pedal pulses, normal capillary refill NEURO: reflexes normal, slight arousal to name calling SKIN: warm, dry PSYCH: difficult to assess at this time Intake and Output: 03/20/18 03/20/18 06:59 18:59 Intake Total 90 Balance 90 - Medications Medications: Current Medications Acetaminophen (Tylenol 650 Mg Supp) 650 mg AL Q4 PRN PRN Reason: Fever >100.4 F Last Admin: 03/20/18 03:17 Dose: 650 mg Morphine Sulfate 100 mg/ (Sodium Chloride) 104 mls @ 3.12 mls/hr IVPB .Q24H TESFAYE ; 3 MG/HR PRN Reason: Protocol Last Admin: 03/19/18 18:12 Dose: 3.12 mls/hr Lorazepam (Ativan) 1 mg IVP Q6 PRN PRN Reason: Agitation Last Admin: 03/19/18 08:52 Dose: 1 mg Morphine Sulfate (Morphine) 2 mg IVP Q4 PRN PRN Reason: breakthrough pain Last Admin: 03/19/18 13:43 Dose: 2 mg Scopolamine (Transderm-Scop) 1 patch TD Q3D TESFAYE Last Admin: 03/18/18 13:57 Dose: 1 patch Assessment and Plan - Assessment and Plan (Free Text) Plan: 67M PMH metastatic lung CA, 2:1 aflutter currently on hospice, currently tachycardic 180s and hypotensive systolics 70s. Pt on Morphine drip, Scopolamine, comfort measures.
[2018-03-20] MEDS: Morphine 100 MG in Sodium Chloride 0.9% 100 ML IVPB SCH (12:32)
[2018-03-20 17:29] VITALS: BP 63/41; PULSE 178; RESP 23; TEMP 102.9
--- NOTE | 2018-03-20 19:30 | CP.PCM.PRO ---
Pronouncement of Note - Clinical Findings Physical Exam: No Response Verbal/Painful Stimuli, Absent Peripheral Pulses{ Carotid & Femoral}, Absent Heart & Breath Sounds, No Pupillary Light Reflex, No Corneal Reflex, Pupils Fixed & Dilated, Absence of Vital Signs - Notifications Pronouncement Notifications: Family Notified - N.[place] Certificate [place] Number: [id number]
--- NOTE | 2018-03-22 09:11 | CP.PCM.DIS ---
Provider - Provider Date of Admission: 03/18/18 11:41 Attending physician: Karen Castro MD Time Spent in preparation of Discharge (in minutes): 5 Diagnosis - Discharge Diagnosis (1) Atrial flutter Status: Acute (2) Brain lesion Status: Acute (3) Coagulopathy Status: Acute (4) Lung cancer Status: Acute (5) Metastatic cancer Status: Acute Hospital Course - Hospital Course Hospital Course: inpt hospice care Discharge Exam - Head Exam Head Exam: ATRAUMATIC, NORMAL INSPECTION, NORMOCEPHALIC Discharge Plan - Follow Up Plan Condition: GOOD Disposition: WITH WITHOUT AUTOPSY Additional Instructions: , pronouncement by dr lincoln final dx-ugo gayle w/ mets
== END 2018-03-20 19:20 | DRG 181 ==
LOC: H.ICU/CCU 11:41 → H.MEDSURG1 15:12
PROVIDERS: ADMIT Family Medicine; ATTEND Family Medicine
DX: C34.90 Malignant neoplasm of unspecified part of unspecified bronchus or lung (principal); I48.92 Unspecified atrial flutter; C79.9 Secondary malignant neoplasm of unspecified site; G93.9 Disorder of brain, unspecified; Z51.5 Encounter for palliative care; I95.9 Hypotension, unspecified; R79.1 Abnormal coagulation profile; Z66 Do not resuscitate